=== PATIENT | female | born 1945 | race Caucasian/White ===

== ENCOUNTER 2017-02-21 04:47 | Inpatient (IN) | payer MEDICARE, OTHER ==
[2017-02-21] VITALS (12 sets, daily range): BP systolic 144–185; BP diastolic 59–85; PULSE 52–82; RESP 15–20; TEMP 96.4–98.2; O2SAT 94–99
[~2017-02-21] VITALS: Ht 165.1 cm; Wt 71.3 kg
--- NOTE | 2017-02-21 05:10 | PD ---
HPI Chief Complaint: Fall Time Seen by Provider: 04:51 Travel History International Travel<30 days: No Contact w/Intl Traveler<30days: No Traveled to known affect area: No History of Present Illness HPI 71-year-old female brought in by ambulance from her half-way for evaluation of right hip pain. The patient states that she tripped and fell while attempting to walk to the restroom, landing onto her right hip. She immediately experienced pain in her right hip. Pain is constant, moderate, worse with movements. She is unable to ambulate or bear weight because of the pain. She denies any other injuries. She denies head injury or LOC. No head neck or back pain. She is on aspirin and Plavix for history of CVAs. [facility] Past Medical History ?: Not Social History Tobacco Use: No Allergies-Medications (Allergen,Severity, Reaction): Coded Allergies: codeine (Verified Allergy, Unknown, 02/21/17) Reported Meds & Prescriptions Reported Meds & Active Scripts Active Reported Anoro Ellipta Inh (Umeclidinium/Vilanterol) 62.5-25 Mcg/Act Aero 1 Puff INH DAILY Pravastatin 40 Mg Tab 40 Mg PO DAILY Omeprazole 20 Mg Tab 20 Mg PO DAILY Metoprolol Tartrate 25 Mg Tab 25 Mg PO DAILY Lisinopril 40 Mg Tab 40 Mg PO DAILY Flovent Hfa 10.6 GM Inh (Fluticasone Propionate) 44 Mcg/Act Inh 2 Puff INH BID Use daily at the same time. Duloxetine DR (Duloxetine HCl) 20 Mg Capdr 20 Mg PO DAILY Clopidogrel (Clopidogrel Bisulfate) 75 Mg Tab 75 Mg PO DAILY Aspirin 81 Mg Chew 81 Mg CHEW DAILY Amlodipine (Amlodipine Besylate) 10 Mg Tab 10 Mg PO DAILY Fosamax (Alendronate Sodium) 70 Mg Tab 70 Mg PO Q7D Review of Systems Except as stated in HPI: all other systems reviewed are Neg Physical Exam Narrative GENERAL: Well-developed, well-nourished, awake, alert, GCS 15, no apparent distress. SKIN: Focused skin assessment warm/dry. No lacerations, abrasions, or ecchymosis. HEAD: Atraumatic. Normocephalic. EYES: Pupils equal and round. No scleral icterus. No injection or drainage. ENT: Mucous membranes pink and moist. NECK: Trachea midline. No JVD. No midline cervical spine step-off or tenderness. CARDIOVASCULAR: Regular rate and rhythm. Bilateral dorsalis pedis pulses are brisk and equal. RESPIRATORY: No accessory muscle use. Clear to auscultation. Breath sounds equal bilaterally. GASTROINTESTINAL: Abdomen soft, non-tender, nondistended. MUSCULOSKELETAL: Mild shortening and external rotation of the right lower extremity with tenderness at the right hip and limited range of motion in the right hip secondary to pain. There is pain with log rolling and axial loading at the right hip. No right knee deformity or tenderness. No right ankle or foot deformity or tenderness. The rest of her joints and extremities are without deformity, without tenderness, with normal range of motion. NEUROLOGICAL: Awake and alert. No obvious cranial nerve deficits. Motor grossly within normal limits. Normal speech. PSYCHIATRIC: Appropriate mood and affect; insight and judgment normal. Data Data Last Documented VS Vital Signs Date Time Temp Pulse Resp B/P (MAP) Pulse Ox O2 Delivery O2 Flow Rate FiO2 02/21/17 06:32 65 16 171/79 (109) 98 Room Air 02/21/17 04:58 98.1 Orders Orders Basic Metabolic Panel (Bmp) (02/21/17 05:04) Complete Blood Count With Diff (02/21/17 05:04) Prothrombin Time / Inr (Pt) (02/21/17 05:04) Act Partial Throm Time (Ptt) (02/21/17 05:04) Urinalysis - C+S If Indicated (02/21/17 05:04) Iv Access Insert/Monitor (02/21/17 05:04) Ecg Monitoring (02/21/17 05:04) Oximetry (02/21/17 05:04) Sodium Chloride 0.9% Flush (Ns Flush) (02/21/17 05:15) Hip, Uni(Ap&Lat) W Ap Pelvis (02/21/17 ) Ct Brain W/O Iv Contrast(Rout) (02/21/17 ) Ct Cerv Spine W/O Contrast (02/21/17 ) Morphine Inj (Morphine Inj) (02/21/17 05:15) Urine Culture (02/21/17 05:30) Morphine Inj (Morphine Inj) (02/21/17 06:45) Ct Pelvis W/O Iv Contrast (02/21/17 ) Labs Laboratory Tests Test 02/21/17 05:30 White Blood Count 4.9 TH/MM3 Red Blood Count 3.56 MIL/MM3 Hemoglobin 9.1 GM/DL Hematocrit 27.5 % Mean Corpuscular Volume 77.1 FL Mean Corpuscular Hemoglobin 25.5 PG Mean Corpuscular Hemoglobin Concent 33.0 % Red Cell Distribution Width 19.8 % Platelet Count 43 TH/MM3 Mean Platelet Volume 10.6 FL Neutrophils (%) (Auto) 36.7 % Lymphocytes (%) (Auto) 39.4 % Monocytes (%) (Auto) 23.3 % Eosinophils (%) (Auto) 0.3 % Basophils (%) (Auto) 0.3 % Neutrophils # (Auto) 1.8 TH/MM3 Lymphocytes # (Auto) 1.9 TH/MM3 Monocytes # (Auto) 1.1 TH/MM3 Eosinophils # (Auto) 0.0 TH/MM3 Basophils # (Auto) 0.0 TH/MM3 CBC Comment AUTO DIFF Differential Comment AUTO DIFF CONFIRMED Platelet Estimate LOW Platelet Morphology Comment ENLARGED Red Cell Morphology Comment NORMAL Prothrombin Time 11.7 SEC Prothromb Time International Ratio 1.1 RATIO Activated Partial Thromboplast Time 26.1 SEC Urine Color LIGHT-YELLOW Urine Turbidity HAZY Urine pH 6.5 Urine Specific [place] 1.004 Urine Protein NEG mg/dL Urine Glucose (UA) NEG mg/dL Urine Ketones NEG mg/dL Urine Occult Blood NEG Urine Nitrite POS Urine Bilirubin NEG Urine Urobilinogen LESS THAN 2.0 MG/DL Urine Leukocyte Esterase LARGE Urine RBC 4 /hpf Urine WBC 52 /hpf Urine Squamous Epithelial Cells <1 /hpf Urine Transitional Epithelial Cells <1 /hpf Urine Bacteria OCC /hpf Urine Hyaline Casts 1 /lpf Urine Mucus FEW /lpf Microscopic Urinalysis Comment CULTURE INDICATED Blood Urea Nitrogen 7 MG/DL Creatinine 0.66 MG/DL Random Glucose 96 MG/DL Calcium Level 8.9 MG/DL Sodium Level 137 MEQ/L Potassium Level 4.0 MEQ/L Chloride Level 104 MEQ/L Carbon Dioxide Level 24.4 MEQ/L Anion Gap 9 MEQ/L Estimat Glomerular Filtration Rate 89 ML/MIN [facility] Medical Decision Making Medical Screen Exam Complete: Yes Emergency Medical Condition: Yes Differential Diagnosis Mechanical fall, right hip fracture, contusion, intracranial trauma, cervical spine injury Narrative Course Initial vital signs show heart rate 82, blood pressure 146/72, pulse ox 98% on room air, oral temp of 98.1F. CBC: WBC 4.9, hemoglobin 9.1, hematocrit 27.5, MCV 77.1, platelets 43. BMP is unremarkable. UA is suggestive of UTI. The patient was given a dose of Rocephin. CT head: Cerebral atrophy and extensive chronic ischemic small vessel vasculopathy. Remote bilateral infarct. No hemorrhage. CT cervical spine: Advanced multilevel degenerative changes. No fracture. Right hip and pelvis x-ray: Mild degenerative changes without fracture. The patient has never been here before and there are no prior labs for comparison. She is anemic and thrombocytopenic. Stool was checked and is heme- negative and brown. On reassessment the patient has developed a large hematoma over her right lateral thigh. She is complaining of continued pain in this area. CT pelvis will be ordered to rule out occult fracture. At approximately 7:00 AM at the end of my shift the patient was signed out to oncoming provider Dr. Link to follow up with CT pelvis and formulate a disposition. H[facility]Prompt Point of Care Internal Pos. & Neg. Controls: Passed Fecal Specimen Occult Blood: Negative Comment Heme-negative brown stool. Diagnosis Primary Impression: Fall Qualified Codes: W19.XXXA - Unspecified fall, initial encounter Additional Impressions: Hip injury Qualified Codes: S79.911A - Unspecified injury of right hip, initial encounter Anemia Qualified Codes: D64.9 - Anemia, unspecified Thrombocytopenia UTI (urinary tract infection) Qualified Codes: N39.0 - Urinary tract infection, site not specified; R31.9 - Hematuria, unspecified Noe Ramírez MD Feb 21, 2017 05:10
[2017-02-21] MEDS ORDERED: MORPHINE SULFATE 2 MG/ML INJ IV PUSH ONE ×2 (05:15→06:45)
[2017-02-21] MEDS ORDERED: SODIUM CHLORIDE 0.9% FLUSH 10 ML FLUSH IV FLUSH PRN ×2 (05:15→09:45)
[2017-02-21 05:37] LABS: AUTOMATED NEUTROPHIL # 1.8 TH/MM3 (1.8-7.7); BASOPHIL % 0.3 % (0.0-2.0); EOSINOPHIL % 0.3 % (0.0-4.0); HEMATOCRIT 27.5 % (35.0-46.0); LYMPH % 39.4 % (9.0-44.0); LYMPHOCYTE # 1.9 TH/MM3 (1.0-4.8); MEAN CELL VOLUME 77.1 FL (80.0-100.0); MEAN CORPUSCULAR HEMOGLOBIN 25.5 PG (27.0-34.0); MONO % 23.3 % (0.0-8.0); NEUT % 36.7 % (16.0-70.0); PLATELET COUNT 43 TH/MM3 (150-450); RED BLOOD COUNT 3.56 MIL/MM3 (4.00-5.30); RED CELL DISTRIBUTION WIDTH 19.8 % (11.6-17.2); WHITE BLOOD COUNT 4.9 TH/MM3 (4.0-11.0)
[2017-02-21 05:42] LABS: BACTERIA, URINE OCC /hpf; BLOOD, URINE NEG (NEG); GLUCOSE,URINE NEG (NEG); HYALINE CAST, URINE 1 /lpf (RARE); KETONE, URINE NEG (NEG); MUCUS URINE FEW /lpf (OCC); NITRITE,URINE POS (NEG); PH, URINE 6.5 (5.0-8.5); SQUAMOUS EPITHELIAL CELL URINE <1 /hpf (0-5); TRANSITIONAL EPI CELLS, URINE <1 /hpf; URINE COLOR LIGHT-YELLOW (YELLW/STRAW)
[2017-02-21 05:43] LABS: COMMENT (UR) CULTURE INDICATED; CULTURE IF INDICATED CULTURE INDICATED
[2017-02-21 05:50] LABS: APTT (PATIENT) 26.1 SEC (24.3-30.1); INTERNATIONAL NORMALIZED RATIO 1.1 RATIO; PROTHROMBIN TIME - PATIENT 11.7 SEC (9.8-11.6)
--- NOTE | 2017-02-21 05:57 | RADRPT ---
EXAM DATE/TIME: 02/21/2017 05:26 [facility] COMPARISON: No previous studies available for comparison. INDICATIONS : Trauma, fall. RADIATION DOSE: 56.35 CTDIvol (mGy) MEDICAL HISTORY : None SURGICAL HISTORY : None. ENCOUNTER: Initial ACUITY: 1 day PAIN SCALE: 1/10 LOCATION: cranial TECHNIQUE: Multiple contiguous axial images were obtained of the head. Using automated exposure control and adj ustment of the mA and/or kV according to patient size, radiation dose was kept as low as reasonably a chievable to obtain optimal diagnostic quality images. DICOM format image data is available electro nically for review and comparison. FINDINGS: CEREBRUM: Prominent areas of low attenuation throughout the white matter and brainstem. Old bilateral lacunar i nfarcts. The ventricles are prominent consistent with atrophy. No evidence of midline shift, mass le sen, hemorrhage or acute infarction. No extra-axial fluid collections are seen. POSTERIOR FOSSA: The cerebellum and brainstem are intact. The 4th ventricle is midline. The cerebellopontine angle i s unremarkable. EXTRACRANIAL: The visualized portion of the orbits is intact. SKULL: The calvaria is intact. No evidence of skull fracture. Area of sclerosis along the outer table of le ft parietal calvarium likely osteoma. CONCLUSION: 1. Cerebral atrophy and extensive chronic ischemic small vessel vasculopathy. 2. Remote bilateral infarct. 3. No hemorrhage. Edenilson Garza MD on February 21, 2017 at 5:54 Board Certified Radiologist. This report was verified electronically.
--- NOTE | 2017-02-21 06:01 | RADRPT ---
EXAM DATE/TIME: 02/21/2017 05:39 [facility] COMPARISON: No previous studies available for comparison. INDICATIONS : Fall this morning onto right hip. MEDICAL HISTORY : None. SURGICAL HISTORY : None. ENCOUNTER: Initial ACUITY: 1 day PAIN SCORE: 6/10 LOCATION: Right hip FINDINGS: Examination of the right hip was performed with AP Pelvis. The primary and secondary trabecular tanya roshni of the femoral neck is intact. The hip joint is of normal width without significant sclerosis or bony hypertrophy. The acetabulum is grossly intact. Stent in the right iliac vasculature. CONCLUSION: Mild degenerative changes without fracture. Edenilson Garza MD on February 21, 2017 at 5:59 Board Certified Radiologist. This report was verified electronically.
--- NOTE | 2017-02-21 06:01 | RADRPT ---
EXAM DATE/TIME: 02/21/2017 05:27 [facility] COMPARISON: No previous studies available for comparison. INDICATIONS : Trauma, fall. RADIATION DOSE: 34.49 CTDIvol (mGy) MEDICAL HISTORY : None SURGICAL HISTORY : None. ENCOUNTER: Initial ACUITY: 1 day PAIN SCALE: 0/10 LOCATION: neck TECHNIQUE: Volumetric scanning of the cervical spine was performed. Multiplanar reconstructions in the sagittal, coronal and oblique axial planes were performed. Using automated exposure control and adjustment o f the mA and/or kV according to patient size, radiation dose was kept as low as reasonably achievable to obtain optimal diagnostic quality images. DICOM format image data is available electronically f or review and comparison. FINDINGS: VERTEBRAE: Normal vertebral body height. ALIGNMENT: No evidence of subluxation. C2-C3: Broad-based posterior disc osteophyte complex. The neural foramina are bilaterally patent. C3-C4: Broad-based posterior disc osteophyte complex and moderate bilateral neural foraminal narrowing. C4-C5: Broad-based posterior disc osteophyte complex and moderate bilateral neural foraminal narrowing. No s ignificant canal stenosis. C5-C6: Broad-based posterior disc osteophyte complex and moderate bilateral neural foraminal narrowing. Mild canal stenosis. C6-C7: Broad-based posterior disc osteophyte complex and moderate bilateral neural foraminal narrowing. Mild canal stenosis. C7-T1: The bony spinal canal is normal in size. No evidence of disc bulge or herniation. The neural forami na are bilaterally patent. CONCLUSION: 1. Advanced multilevel degenerative changes. 2. No fracture. Edenilson Garza MD on February 21, 2017 at 5:56 Board Certified Radiologist. This report was verified electronically.
[2017-02-21] MEDS ORDERED: ASPI81CH CHEW (06:02)
[2017-02-21] MEDS ORDERED: METO25TA3 PO (06:02)
[2017-02-21] MEDS ORDERED: FOSA70TA PO (06:02)
[2017-02-21] MEDS ORDERED: FLUTI44I INH (06:02)
[2017-02-21] MEDS ORDERED: UMEC1AER INH (06:02)
[2017-02-21] MEDS ORDERED: AMLO10TA2 PO (06:02)
[2017-02-21] MEDS ORDERED: OMEP20TA PO (06:02)
[2017-02-21] MEDS ORDERED: LISI40TA PO (06:02)
[2017-02-21] MEDS ORDERED: DULO1CAP PO (06:02)
[2017-02-21] MEDS ORDERED: CLOP75TA PO (06:02)
[2017-02-21] MEDS ORDERED: PRAV40TA2 PO (06:02)
[2017-02-21 06:16] LABS: BICARBONATE 24.4 MEQ/L (21.0-32.0)
[2017-02-21 06:18] LABS: HEMO FLAGS AUTO DIFF
[2017-02-21 06:20] LABS: PLATELET ESTIMATE SMEAR LOW (NORMAL); PLATELET MORPHOLOGY ENLARGED (NORMAL); SCAN/DIFF AUTO DIFF CONFIRMED
--- NOTE | 2017-02-21 07:08 | PD ---
Physical Exam Date Seen by Provider: Feb 21, 2017 Time Seen by Provider: 07:07 Narrative The patient is a 71-year-old female who is initially lightly by the previous physician, Dr. Ramírez. Please refer to the initial history, physical, diagnostic evaluation, and treatment modality plan. The patient was signed out at [address] of the head pending after mechanical fall with inability to ambulate. The patient does currently [facility] in a [facility]. Data Data Last Documented VS Vital Signs Date Time Temp Pulse Resp B/P (MAP) Pulse Ox O2 Delivery O2 Flow Rate FiO2 02/21/17 06:32 65 16 171/79 (109) 98 Room Air 02/21/17 04:58 98.1 Orders Orders Basic Metabolic Panel (Bmp) (02/21/17 05:04) Complete Blood Count With Diff (02/21/17 05:04) Prothrombin Time / Inr (Pt) (02/21/17 05:04) Act Partial Throm Time (Ptt) (02/21/17 05:04) Urinalysis - C+S If Indicated (02/21/17 05:04) Iv Access Insert/Monitor (02/21/17 05:04) Ecg Monitoring (02/21/17 05:04) Oximetry (02/21/17 05:04) Sodium Chloride 0.9% Flush (Ns Flush) (02/21/17 05:15) Hip, Uni(Ap&Lat) W Ap Pelvis (02/21/17 ) Ct Brain W/O Iv Contrast(Rout) (02/21/17 ) Ct Cerv Spine W/O Contrast (02/21/17 ) Morphine Inj (Morphine Inj) (02/21/17 05:15) Urine Culture (02/21/17 05:30) Morphine Inj (Morphine Inj) (02/21/17 06:45) Ct Pelvis W/O Iv Contrast (02/21/17 ) Labs Laboratory Tests Test 02/21/17 05:30 White Blood Count 4.9 TH/MM3 Red Blood Count 3.56 MIL/MM3 Hemoglobin 9.1 GM/DL Hematocrit 27.5 % Mean Corpuscular Volume 77.1 FL Mean Corpuscular Hemoglobin 25.5 PG Mean Corpuscular Hemoglobin Concent 33.0 % Red Cell Distribution Width 19.8 % Platelet Count 43 TH/MM3 Mean Platelet Volume 10.6 FL Neutrophils (%) (Auto) 36.7 % Lymphocytes (%) (Auto) 39.4 % Monocytes (%) (Auto) 23.3 % Eosinophils (%) (Auto) 0.3 % Basophils (%) (Auto) 0.3 % Neutrophils # (Auto) 1.8 TH/MM3 Lymphocytes # (Auto) 1.9 TH/MM3 Monocytes # (Auto) 1.1 TH/MM3 Eosinophils # (Auto) 0.0 TH/MM3 Basophils # (Auto) 0.0 TH/MM3 CBC Comment AUTO DIFF Differential Comment AUTO DIFF CONFIRMED Platelet Estimate LOW Platelet Morphology Comment ENLARGED Red Cell Morphology Comment NORMAL Prothrombin Time 11.7 SEC Prothromb Time International Ratio 1.1 RATIO Activated Partial Thromboplast Time 26.1 SEC Urine Color LIGHT-YELLOW Urine Turbidity HAZY Urine pH 6.5 Urine Specific [place] 1.004 Urine Protein NEG mg/dL Urine Glucose (UA) NEG mg/dL Urine Ketones NEG mg/dL Urine Occult Blood NEG Urine Nitrite POS Urine Bilirubin NEG Urine Urobilinogen LESS THAN 2.0 MG/DL Urine Leukocyte Esterase LARGE Urine RBC 4 /hpf Urine WBC 52 /hpf Urine Squamous Epithelial Cells <1 /hpf Urine Transitional Epithelial Cells <1 /hpf Urine Bacteria OCC /hpf Urine Hyaline Casts 1 /lpf Urine Mucus FEW /lpf Microscopic Urinalysis Comment CULTURE INDICATED Blood Urea Nitrogen 7 MG/DL Creatinine 0.66 MG/DL Random Glucose 96 MG/DL Calcium Level 8.9 MG/DL Sodium Level 137 MEQ/L Potassium Level 4.0 MEQ/L Chloride Level 104 MEQ/L Carbon Dioxide Level 24.4 MEQ/L Anion Gap 9 MEQ/L Estimat Glomerular Filtration Rate 89 ML/MIN [facility] Medical Record Reviewed: Yes Supervised Visit with GEN: No Interpretation(s) Last Impressions Pelvis CT 02/21/17 Signed Impressions: Service Date/Time: Tuesday, February 21, 2017 07:36 - CONCLUSION: 1. Moderate-sized lateral right thigh soft tissue hematoma with associated nondisplaced fracture involving the greater trochanter of the right femur. Andrea Oro MD Hip and Pelvis X-Ray 02/21/17 Signed Impressions: Service Date/Time: Tuesday, February 21, 2017 05:39 - CONCLUSION: Mild degenerative changes without fracture. Edenilson Garza MD Head CT 02/21/17 Signed Impressions: Service Date/Time: Tuesday, February 21, 2017 05:26 - CONCLUSION: 1. Cerebral atrophy and extensive chronic ischemic small vessel vasculopathy. 2. Remote bilateral infarct. 3. No hemorrhage. Edenilson Garza MD Cervical Spine CT 02/21/17 0000 Signed Impressions: Service Date/Time: Tuesday, February 21, 2017 05:27 - CONCLUSION: 1. Advanced multilevel degenerative changes. 2. No fracture. Edenilson Garza MD Laboratory Tests Test 02/21/17 05:30 White Blood Count 4.9 TH/MM3 Red Blood Count 3.56 MIL/MM3 Hemoglobin 9.1 GM/DL Hematocrit 27.5 % Mean Corpuscular Volume 77.1 FL Mean Corpuscular Hemoglobin 25.5 PG Mean Corpuscular Hemoglobin Concent 33.0 % Red Cell Distribution Width 19.8 % Platelet Count 43 TH/MM3 Mean Platelet Volume 10.6 FL Neutrophils (%) (Auto) 36.7 % Lymphocytes (%) (Auto) 39.4 % Monocytes (%) (Auto) 23.3 % Eosinophils (%) (Auto) 0.3 % Basophils (%) (Auto) 0.3 % Neutrophils # (Auto) 1.8 TH/MM3 Lymphocytes # (Auto) 1.9 TH/MM3 Monocytes # (Auto) 1.1 TH/MM3 Eosinophils # (Auto) 0.0 TH/MM3 Basophils # (Auto) 0.0 TH/MM3 CBC Comment AUTO DIFF Differential Comment AUTO DIFF CONFIRMED Platelet Estimate LOW Platelet Morphology Comment ENLARGED Red Cell Morphology Comment NORMAL Prothrombin Time 11.7 SEC Prothromb Time International Ratio 1.1 RATIO Activated Partial Thromboplast Time 26.1 SEC Urine Color LIGHT-YELLOW Urine Turbidity HAZY Urine pH 6.5 Urine Specific [place] 1.004 Urine Protein NEG mg/dL Urine Glucose (UA) NEG mg/dL Urine Ketones NEG mg/dL Urine Occult Blood NEG Urine Nitrite POS Urine Bilirubin NEG Urine Urobilinogen LESS THAN 2.0 MG/DL Urine Leukocyte Esterase LARGE Urine RBC 4 /hpf Urine WBC 52 /hpf Urine Squamous Epithelial Cells <1 /hpf Urine Transitional Epithelial Cells <1 /hpf Urine Bacteria OCC /hpf Urine Hyaline Casts 1 /lpf Urine Mucus FEW /lpf Microscopic Urinalysis Comment CULTURE INDICATED Blood Urea Nitrogen 7 MG/DL Creatinine 0.66 MG/DL Random Glucose 96 MG/DL Calcium Level 8.9 MG/DL Sodium Level 137 MEQ/L Potassium Level 4.0 MEQ/L Chloride Level 104 MEQ/L Carbon Dioxide Level 24.4 MEQ/L Anion Gap 9 MEQ/L Estimat Glomerular Filtration Rate 89 ML/MIN Differential Diagnosis Differential diagnosis includes fracture, sprain, strain, dislocation, contusion , hematoma. Narrative Course The patient was initially evaluated by the previous physician, Dr. Ramírez. Please refer to the initial history, physical, diagnostic evaluation, and treatment modality plan. The patient was signed out at [address] of the head pending after mechanical fall with right hip pain and hematoma with inability to ambulate. The patient was noted to have a UTI, this was treated by the previous physician, Dr. Ramírez. CT of the right hip reveals an right greater trochanter fracture and hematoma. This may be a nonsurgical fracture, however, patient is unable to and bleed. Therefore, the patient will be admitted and will require orthopedic consultation. The patient will need physical therapy and occupational therapy evaluation as well. The patient's primary physician at the prison is Dr. Hurtado, therefore, [facility] were paged for admission. Physician Communication Physician Communication [facility] were paged for admission. Diagnosis Primary Impression: Fall Qualified Codes: W19.XXXA - Unspecified fall, initial encounter Additional Impressions: Anemia Qualified Codes: D64.9 - Anemia, unspecified Thrombocytopenia Hip injury Qualified Codes: S79.911A - Unspecified injury of right hip, initial encounter UTI (urinary tract infection) Qualified Codes: N39.0 - Urinary tract infection, site not specified; R31.9 - Hematuria, unspecified Fracture of greater trochanter of right femur Qualified Codes: S72.114A - Nondisplaced fracture of greater trochanter of right femur, initial encounter for closed fracture Admitting Information Admitting Physician Requests: Admit Condition: Stable Edgardo Link MD Feb 21, 2017 07:08
--- NOTE | 2017-02-21 08:04 | RADRPT ---
EXAM DATE/TIME: 02/21/2017 07:36 [facility] COMPARISON: HIP RIGHT (AP&LAT 2/3VWS) W AP PELVIS, February 21, 2017, 5:39. INDICATIONS : Right hip pain and thigh hematoma. ORAL CONTRAST: No oral contrast ingested. RADIATION DOSE: 20.33 CTDIvol (mGy) MEDICAL HISTORY : Chronic obstructive pulmonary disease. Cerebrovascular disease. Cardiovascular diseaseHypertension. SURGICAL HISTORY : None. ENCOUNTER: Initial ACUITY: 1 day PAIN SCALE: 0/10 LOCATION: Right pelvis TECHNIQUE: Volumetric scanning of the pelvis was performed. Using automated exposure control and adjustment of the mA and/or kV according to patient size, radiation dose was kept as low as reasonably achievable t o obtain optimal diagnostic quality images. DICOM format image data is available electronically for review and comparison. FINDINGS: BOWEL/MESENTERY: The visualized small and large bowel demonstrate no acute abnormality. There is no free fluid. BLADDER: There is no wall thickening or mass. RETROPERITONEUM: There is no aneurysm or lymphadenopathy. Extensive atherosclerotic calcifications of the distal aorta and bilateral iliac arteries with the right iliac artery stent in place. REPRODUCTIVE: Within normal limits. INGUINAL: There is no lymphadenopathy or hernia. MUSCULOSKELETAL: Moderate-sized lateral right soft tissue hematoma. There is a nondisplaced fracture involving the gre ater trochanter of the right femur. Remaining osseous structures appear intact. CONCLUSION: 1. Moderate-sized lateral right thigh soft tissue hematoma with associated nondisplaced fracture invo lving the greater trochanter of the right femur. Andrea Oro MD on February 21, 2017 at 7:56 Board Certified Radiologist. This report was verified electronically.
[2017-02-21] MEDS ORDERED: ONDANSETRON HCL 4 MG/2 ML VIAL IV PUSH ONE (08:30)
[2017-02-21] MEDS ORDERED: MORPHINE SULFATE 4 MG/ML INJ IV PUSH ONE (08:30)
[2017-02-21] MEDS ORDERED: SODIUM CHLOR 0.9% 1000 ML INJ 1,000 ML IV SCH (08:30)
[2017-02-21] MEDS ORDERED: ACETAMINOPHEN/HYDROcodone 325 MG/5 MG TAB PO PRN (09:45)
[2017-02-21] MEDS ORDERED: BISACODYL 10 MG SUPP RECTAL PRN (09:45)
[2017-02-21] MEDS ORDERED: ACETAMINOPHEN/HYDROcodone 325 MG/7.5 MG TAB PO PRN (09:45)
[2017-02-21] MEDS ORDERED: ACETAMINOPHEN 325 MG TAB PO PRN (09:45)
[2017-02-21] MEDS ORDERED: NALOXONE HCL 0.4 MG/ML AMP IV PUSH PRN (09:45)
[2017-02-21] MEDS ORDERED: ONDANSETRON HCL 4 MG/2 ML VIAL IVP PRN (09:45)
[2017-02-21] MEDS ORDERED: ENALAPRILAT 1.25 MG/ML VIAL IV PUSH PRN (10:15)
--- NOTE | 2017-02-21 10:26 | HHI.HP ---
[facility] Service [facility] Primary Care Physician Nas Hurtado MD Admission Diagnosis right greater trochanter fracture, hematoma Diagnoses: (1) Fracture of greater trochanter of right femur (2) Thrombocytopenia (3) Fall (4) UTI (urinary tract infection) (5) Anemia Chief Complaint: Post fall Travel History International Travel<30 Days: No Contact w/Intl Traveler <30 Da: No Traveled to Known Affected Are: No History of Present Illness Written by Lakeshia Suresh, acting as scribe for Dr. Cedillo on 02/21/17 at 10:24. Ms. Craft is a 71-year-old female patient with a known medical history of hypertension, cardiac stent placement and history of CVA who presented to the ED after slipping at home. Patient states she woke up needing to use the restroom, stepped out of bed and with her socks on she slipped on the wood floor landing on her right hip. Patient complaints of 9/10 pain, denies any radiation of pain, states that movement aggravates pain, rest relieves pain. Denies any loss of consciousness, denies any dizziness or lightheadedness, denies hitting her head. Denies any weakness in legs. Denies any numbness or tingling in extremities. Denies any recent illness including fever, chills, chest pain, headache, ab pain, n/v/d or dysuria. At this time patient is in severe pain, unable to even turn in bed without significant pain. Thrombocytopenia also noted on labs today. Patient unaware of previousH/O easy bruising or ecchymosis, not aware of having a low platelet count in the past Review of Systems Constitutional: DENIES: Fever, Chills Eyes: DENIES: Blurred vision Respiratory: DENIES: Cough, Sputum production, Shortness of breath Cardiovascular: DENIES: Chest pain, Syncope, Dyspnea on Exertion Gastrointestinal: DENIES: Abdominal pain, Constipation, Diarrhea, Nausea, Vomiting Psychiatric: DENIES: Anxiety Except as stated in HPI: all other systems reviewed are Neg Past Family Social History Past Medical History Hypertension Cardiac stent placement x 3 History of CVA in 2003 Past Surgical History Denies any prior surgery. Reported Medications Active Reported Anoro Ellipta Inh (Umeclidinium/Vilanterol) 62.5-25 Mcg/Act Aero 1 Puff INH DAILY Pravastatin 40 Mg Tab 40 Mg PO DAILY Omeprazole 20 Mg Tab 20 Mg PO DAILY Metoprolol Tartrate 25 Mg Tab 25 Mg PO DAILY Lisinopril 40 Mg Tab 40 Mg PO DAILY Flovent Hfa 10.6 GM Inh (Fluticasone Propionate) 44 Mcg/Act Inh 2 Puff INH BID Use daily at the same time. Duloxetine DR (Duloxetine HCl) 20 Mg Capdr 20 Mg PO DAILY Clopidogrel (Clopidogrel Bisulfate) 75 Mg Tab 75 Mg PO DAILY Aspirin 81 Mg Chew 81 Mg CHEW DAILY Amlodipine (Amlodipine Besylate) 10 Mg Tab 10 Mg PO DAILY Fosamax (Alendronate Sodium) 70 Mg Tab 70 Mg PO Q7D Allergies: Coded Allergies: codeine (Verified Allergy, Unknown, 02/21/17) Active Ordered Medications Current Medications Medications (Trade) Dose Ordered Sig/Maite Route Start Time Stop Time Status Last Admin (NS Flush) 2 ml UNSCH PRN IV FLUSH 02/21/17 05:15 02/21/17 08:40 Sodium Chloride 1,000 ml @ 48 mls/hr [id number] IV 02/21/17 11:00 (NS Flush) 2 ml BID IV FLUSH 02/21/17 21:00 (Tylenol) 650 mg Q4H PRN PO 02/21/17 09:45 (Zofran Inj) 4 mg Q6H PRN IVP 02/21/17 09:45 ([place] 5-325 Mg) 1 tab Q4H PRN PO 02/21/17 09:45 UNV ([place] 7.5-325 Mg) 1 tab Q4H PRN PO 02/21/17 09:45 UNV (Morphine Inj) 3 mg Q3H PRN IV PUSH 02/21/17 11:30 (Narcan Inj) 0.4 mg UNSCH PRN IV PUSH 02/21/17 09:45 (Felicity-Colace) 1 tab BID PO 02/21/17 21:00 (Milk Of Magnesia Liq) 30 ml Q12H PRN PO 02/21/17 09:45 (Senokot) 17.2 mg Q12H PRN PO 02/21/17 09:45 (Dulcolax Supp) 10 mg DAILY PRN RECTAL 02/21/17 09:45 (Lactulose Liq) 30 ml DAILY PRN PO 02/21/17 09:45 (Vasotec Inj) 1.25 mg Q6H PRN IV PUSH 02/21/17 10:15 Family History Admits to a significant family medical history of cardiovascular disease and stroke. Social History Does admit to smoking 1 ppd cigarettes for over 47 years. Denies any alcohol use. Denies any illicit drug use. Physical Exam Vital Signs Vital Signs Date Time Temp Pulse Resp B/P (MAP) Pulse Ox O2 Delivery O2 Flow Rate FiO2 02/21/17 08:45 15 02/21/17 08:40 54 15 168/72 (104) 97 Room Air 02/21/17 07:10 52 15 150/66 (94) 99 Room Air 02/21/17 06:32 65 16 171/79 (109) 98 Room Air 02/21/17 05:55 16 02/21/17 05:00 Room Air 02/21/17 04:58 98.1 82 16 146/72 (96) 98 Physical Exam GENERAL: This is a well-nourished, well-developed female patient, lying in bed with complaints of right hip pain. SKIN: No rashes, ecchymoses or lesions. Warm and dry. HEAD: Atraumatic. Normocephalic. Pupils equal round and reactive. Extraocular motions intact. No scleral icterus. No injection or drainage. Nose without bleeding. Airway patent. NECK: Trachea midline. No JVD or lymphadenopathy. Supple. CARDIOVASCULAR: Regular rate and rhythm without gallops, or rubs. 2/6 systolic murmur heard loudest at lower left sternal border. RESPIRATORY: Clear to auscultation. Breath sounds equal bilaterally. No wheezes , rales, or rhonchi. GASTROINTESTINAL: Abdomen soft, non-tender, nondistended. No guarding. MUSCULOSKELETAL: Extremities without clubbing, cyanosis, or edema. Right hip hematoma noted, roughly 10-15 cm in length. NEUROLOGICAL: Awake and alert. Cranial nerves II through XII intact. Motor and sensory grossly within normal limits. Five out of 5 muscle strength in all muscle groups. Normal speech. Laboratory Laboratory Tests Test 02/21/17 05:30 White Blood Count 4.9 Red Blood Count 3.56 Hemoglobin 9.1 Hematocrit 27.5 Mean Corpuscular Volume 77.1 Mean Corpuscular Hemoglobin 25.5 Mean Corpuscular Hemoglobin Concent 33.0 Red Cell Distribution Width 19.8 Platelet Count 43 Mean Platelet Volume 10.6 Neutrophils (%) (Auto) 36.7 Lymphocytes (%) (Auto) 39.4 Monocytes (%) (Auto) 23.3 Eosinophils (%) (Auto) 0.3 Basophils (%) (Auto) 0.3 Neutrophils # (Auto) 1.8 Lymphocytes # (Auto) 1.9 Monocytes # (Auto) 1.1 Eosinophils # (Auto) 0.0 Basophils # (Auto) 0.0 CBC Comment AUTO DIFF Differential Comment AUTO DIFF CONFIRMED Platelet Estimate LOW Platelet Morphology Comment ENLARGED Red Cell Morphology Comment NORMAL Prothrombin Time 11.7 Prothromb Time International Ratio 1.1 Activated Partial Thromboplast Time 26.1 Urine Color LIGHT-YELLOW Urine Turbidity HAZY Urine pH 6.5 Urine Specific [place] 1.004 Urine Protein NEG Urine Glucose (UA) NEG Urine Ketones NEG Urine Occult Blood NEG Urine Nitrite POS Urine Bilirubin NEG Urine Urobilinogen LESS THAN 2.0 Urine Leukocyte Esterase LARGE Urine RBC 4 Urine WBC 52 Urine Squamous Epithelial Cells <1 Urine Transitional Epithelial Cells <1 Urine Bacteria OCC Urine Hyaline Casts 1 Urine Mucus FEW Microscopic Urinalysis Comment CULTURE INDICATED Blood Urea Nitrogen 7 Creatinine 0.66 Random Glucose 96 Calcium Level 8.9 Sodium Level 137 Potassium Level 4.0 Chloride Level 104 Carbon Dioxide Level 24.4 Anion Gap 9 Estimat Glomerular Filtration Rate 89 Date/Time Source Procedure Growth Status 02/21/17 05:30 Urine Clean Catch Urine Culture Pending Worksheet Result Diagram: 02/21/1730 02/21/1730 Imaging Last Impressions Pelvis CT 02/21/17 0000 Signed Impressions: Service Date/Time: Tuesday, February 21, 2017 07:36 - CONCLUSION: 1. Moderate-sized lateral right thigh soft tissue hematoma with associated nondisplaced fracture involving the greater trochanter of the right femur. Andrea Oro MD Hip and Pelvis X-Ray 02/21/17 0000 Signed Impressions: Service Date/Time: Tuesday, February 21, 2017 05:39 - CONCLUSION: Mild degenerative changes without fracture. Edenilson Garza MD Head CT 02/21/17 0000 Signed Impressions: Service Date/Time: Tuesday, February 21, 2017 05:26 - CONCLUSION: 1. Cerebral atrophy and extensive chronic ischemic small vessel vasculopathy. 2. Remote bilateral infarct. 3. No hemorrhage. Edenilson Garza MD Cervical Spine CT 02/21/17 0000 Signed Impressions: Service Date/Time: Tuesday, February 21, 2017 05:27 - CONCLUSION: 1. Advanced multilevel degenerative changes. 2. No fracture. MD Joy Bass VTE Risk Assessment Caprinkiesha VTE Risk Assessment: Mod/High Risk (score >= 2) Caprini Risk Assessment Model Point Value = 1 Point Value = 2 Point Value = 3 Point Value = 5 Age 41-60 Minor surgery BMI > 25 kg/m2 Swollen legs Varicose veins or History of unexplained or recurrent spontaneous Oral contraceptives or hormone replacement Sepsis (< 1 month) Serious lung disease, including pneumonia (< 1 month) Abnormal pulmonary function Acute myocardial infarction Congestive heart failure (< 1 month) History of inflammatory bowel disease Medical patient at bed rest Age 61-74 Arthroscopic surgery Major open surgery (> 45 min) Laparoscopic surgery (> 45 min) Malignancy Confined to bed (> 72 hours) Immobilizing plaster cast Central venous access Age >= 75 History of VTE Family history of VTE Factor V Leiden Prothrombin [id number] Lupus anticoagulant Anticardiolipin antibodies Elevated serum homocysteine Heparin-induced thrombocytopenia Other congenital or acquired thrombophilia Stroke (< 1 month) Elective arthroplasty Hip, pelvis, or leg fracture Acute spinal cord injury (< 1 month) Prophylaxis Regimen Total Risk Factor Score Risk Level Prophylaxis Regimen 0-1 Low Early ambulation 2 Moderate Order ONE of the following: *Sequential Compression Device (SCD) *Heparin 5000 units SQ BID 3-4 Higher Order ONE of the following medications: *Heparin 5000 units SQ TID *Enoxaparin/Lovenox 40 mg SQ daily (WT < 150 kg, CrCl > 30 mL/min) *Enoxaparin/Lovenox 30 mg SQ daily (WT < 150 kg, CrCl > 10-29 mL/min) *Enoxaparin/Lovenox 30 mg SQ BID (WT < 150 kg, CrCl > 30 mL/min) AND/OR *Sequential Compression Device (SCD) 5 or more Highest Order ONE of the following medications: *Heparin 5000 units SQ TID (Preferred with Epidurals) *Enoxaparin/Lovenox 40 mg SQ daily (WT < 150 kg, CrCl > 30 mL/min) *Enoxaparin/Lovenox 30 mg SQ daily (WT < 150 kg, CrCl > 10-29 mL/min) *Enoxaparin/Lovenox 30 mg SQ BID (WT < 150 kg, CrCl > 30 mL/min) AND *Sequential Compression Device (SCD) Assessment and Plan Assessment and Plan Ms. Craft is a 71-year-old female patient with a known medical history of hypertension, cardiac stent placement and history of CVA who presented to the ED after slipping at home. Patient states she woke up needing to use the restroom, stepped out of bed and with her socks on she slipped on the wood floor hitting her right hip. Status post mechanical fall /Fracture of the greater trochanter of right femur - Hip and pelvis x-ray showing mild degenerative changes without fracture. Pelvis CT showing moderate-sized lateral right thigh soft tissue hematoma with associated nondisplaced fx involving the greater trochanter of the right femur. - Head CT reviewed showing cerebral atrophy and extensive chronic ischemic small vessel vasculopathy. Remote bilateral infarct. No hemorrhage. - Cervical spine CT reviewed showing advanced multilevel degenerative changes , no fracture. - Control pain, Morphine IV given in ED. [place] PO available PRN per pain scale. Morphine IV available PRN for breakthrough pain. - Monitor for constipation, felicity-Colace PO BID. - Ensure hydration, NS @ 48 ml/hr. Monitor for overload. - Orthopedic consulted for further recommendations and input. Not a surgical candidate. - RN to closely monitor hematoma and notify MD of any changes and enlargement. - Supportive care. Moderate-sized latera hematoma in the right thigh soft tissue Mostly worsened by Thrombocytopenia and the fall Continue holding aspirin and Plavix FFP 2 units Continue apply ice packing Hypertension, chronic: BP elevated on presentation possibly secondary to pain. Will continue home BP medications. Continue to monitor BP trends and control pain. Vasotec IV available PRN hypertension. Thrombocytopenia, ?chronic, giant platelet on smear Microcytic, hypochromic anemia - Hemiglobin 9.1/Hematocrit 27.5. - No lab records from previous visits. - Platelets 43K. Hematology consulted for further input and recommendations. - 2 units of FFP ordered. Will follow CBC. Monitor for bleeding. - Follow labs in am. Abnormal UA: Large amount of leukocyte esterase and high WBC. Urine culture pending. Will place on Rocephin IV, follow cultures. DVT prophylaxis: SCDs. Hold chemical prophylaxis for now due to hematoma. Continue to monitor. Discussed Condition With This note was transcribed by scribe [Lakeshia Suresh,.]. I, Dr. Eileen Cedillo personally performed the history, physical exam, and medical decision making; and confirmed the accuracy of the information in the transcribed note. Authenticated by Dr. Cedillo on 02/21/17 at 10:24 Physician Certification 2 Midnight Certification Type: Admission for Inpatient Services Order for Inpatient Services The services are ordered in accordance with Medicare regulations or non- Medicare payer requirements, as applicable. In the case of services not specified as inpatient-only, they are appropriately provided as inpatient services in accordance with the 2-midnight benchmark. Estimated LOS (days): 2 2 days is the estimated time the patient will need to remain in the hospital, assuming treatment plan goals are met and no additional complications. Post-Hospital Plan: Home Problem Qualifiers (1) Fracture of greater trochanter of right femur: Qualified Codes: S72.114A - Nondisplaced fracture of greater trochanter of right femur, initial encounter for closed fracture (2) Fall: Qualified Codes: W19.XXXA - Unspecified fall, initial encounter (3) UTI (urinary tract infection): Qualified Codes: N39.0 - Urinary tract infection, site not specified; R31.9 - Hematuria, unspecified (4) Anemia: Qualified Codes: D64.9 - Anemia, unspecified Lakeshia Suresh Feb 21, 2017 10:26 Eileen Cedillo MD Feb 21, 2017 10:26
[2017-02-21] MEDS ORDERED: MORPHINE SULFATE 4 MG/ML INJ IV PUSH PRN (11:30)
[2017-02-21] MEDS ORDERED: WALKER/ADULT/FO1 MIS (12:27)
[2017-02-21 13:21] LABS: HEMATOCRIT 24.9 % (35.0-46.0)
[2017-02-21 13:24] LABS: REVIEW FLAG FINAL
[2017-02-21 13:38] LABS: TRANSFERRIN 213 MG/DL (213-418); TRANSFERRIN IRON PROFILE 213 MG/DL (200-360)
[2017-02-21 13:41] LABS: FERRITIN 43 NG/ML (8-252)
--- NOTE | 2017-02-21 14:28 | MB ---
cc: EMILMARILYN DATE OF CONSULTATION 02/21/2017 CHIEF COMPLAINT Right hip pain status post fall. HISTORY OF PRESENT ILLNESS The patient is a 71-year-old white female who was brought to the emergency department after suffering a fall at home. She states she got up out of bed to go to the restroom when she lost her balance on her walker. She states that she then fell to the floor on her right hip. She says she had immediate right hip pain. She states that she was unable to bear weight and unable to get up. She denies any numbness, tingling or radiation of symptoms and denies any shortness of breath. She denies any syncopal episodes. She states that she is on Plavix. REVIEW OF SYSTEMS Negative except for what is mentioned in the HPI. FAMILY HISTORY Family history is noncontributory. SOCIAL HISTORY Denies any illicit drug use, alcohol or tobacco use. PAST MEDICAL HISTORY Noncontributory. MEDICATIONS For a complete list of medications, please see the patient's MAR on the chart. PHYSICAL EXAMINATION VITALS: Pulse 52, respiratory rate 15, blood pressure 159/70, O2 saturation 97 on room air. GENERAL: A well-developed, well-nourished 71-year white female resting comfortably in no acute distress. HEAD: Normocephalic, atraumatic. EARS: Hearing intact bilaterally. EYES: Extraocular motions intact. Pupils equal and reactive to light. NEUROLOGIC: Cranial nerves II-XII are grossly intact. NECK: Supple. No evidence of lymphadenopathy. ABDOMEN: Soft, nontender. LUNGS: No use of accessory muscles of breathing. No audible wheezes at bedside. HEART: No grade 4 murmur present. MUSCULOSKELETAL: Right lower extremity with noticeable swelling and bruising of the right lateral hip. It is tender to touch and also the skin appears to be slightly tight. It is localized to an area approximately 6-6 inches. She has point tenderness over the greater trochanter. Minimal pain with movement of the knee and ankle. Full sensation distally. Left lower extremity has full motion of the hip, knee, ankle and toes and no painful sensation distally with full strength. Bilateral upper extremities with full motion of the shoulders, elbows, wrists and fingers and no painful sensation distally with full strength. IMAGING STUDIES CT scans of the pelvis from [facility] was reviewed which shows a nondisplaced right greater trochanter fracture. ASSESSMENT 1. Nondisplaced right greater trochanter fracture. 2. Hematoma of the right lateral thigh. PLAN At this point, with how well the fractures aligned, I would recommend nonoperative management. The patient may 50% weight-bear on the right leg and avoid any active abduction. As long as she follows by these limitations, this should do well for her. I do not anticipate any surgery in the future. She will work with therapy on her stay here. She has other medical issues that need to be attended to. However, once she is getting around safely with therapy, she is orthopedically cleared for discharge to a rehab facility. The patient previously and currently lives in a fci so she would be discharged home back there. She does not need any anticoagulation. She will follow up with Dr. Emerson or his PA in 2 weeks in the office. Dictated by: Solomon Chambers PA-C I also saw and examined this patient. I also reviewed History, past medical history, social history, review of systems, physical exam, radiographs, assessment, and plan. Plan on nonoperative treatment. A mid-level provider in my office (nurse practitioner or physician mobile unit assistant) may see this patient on follow-up visits and continue to implement the objectives of this plan including : Starting or adjusting medications, injections, cast application, orthotics, brace application, physical therapy, radiological studies (including x-ray, MRI , CT, ultrasound, bone scan), vascular studies, neurologic studies, specialist consultation, and proceeding with surgical management, as appropriate. MD BONNIE Fofana/HAILEY /12:29 PM /2:26 PM NATASHA
[2017-02-21] MEDS: cefTRIAXone INJ 1,000 MG in SODIUM CHLORIDE 0.9% INJ 100 ML IV SCH (15:00)
[2017-02-21 17:31] LABS: HEMATOCRIT 28.5 % (35.0-46.0)
[2017-02-21 17:39] LABS: REVIEW FLAG FINAL
[2017-02-21] MEDS ORDERED: IRON SUCROSE INJ 200 MG in SODIUM CHLORIDE 0.9% INJ 100 ML IV ONE (20:00)
[2017-02-21] MEDS: SODIUM CHLORIDE 0.9% FLUSH 10 ML FLUSH IV FLUSH SCH (20:17)
[2017-02-21] MEDS: DOCUSATE SODIUM 50 MG/SENNA 8.6 MG TAB PO SCH (20:17)
[2017-02-21] MEDS: MORPHINE SULFATE 4 MG/ML INJ IV PUSH PRN (20:40)
[2017-02-21 23:47] LABS: REVIEW FLAG FINAL
[2017-02-22] VITALS (9 sets, daily range): BP systolic 142–191; BP diastolic 60–75; PULSE 59–75; RESP 14–20; TEMP 97.2–99.6; O2SAT 92–97
[2017-02-22] MEDS: MORPHINE SULFATE 4 MG/ML INJ IV PUSH PRN ×3 (00:37→20:10)
[2017-02-22 05:53] LABS: AUTOMATED NEUTROPHIL # 3.8 TH/MM3 (1.8-7.7); BASOPHIL % 0.1 % (0.0-2.0); EOSINOPHIL % 0.1 % (0.0-4.0); HEMATOCRIT 25.2 % (35.0-46.0); LYMPH % 18.6 % (9.0-44.0); LYMPHOCYTE # 1.6 TH/MM3 (1.0-4.8); MEAN CELL VOLUME 76.9 FL (80.0-100.0); MEAN CORPUSCULAR HEMOGLOBIN 25.9 PG (27.0-34.0); MEAN CORPUSCULAR HGB CONC 33.7 % (32.0-36.0); MONO % 36.2 % (0.0-8.0); PLATELET COUNT 39 TH/MM3 (150-450); RED BLOOD COUNT 3.28 MIL/MM3 (4.00-5.30); RED CELL DISTRIBUTION WIDTH 19.3 % (11.6-17.2); WHITE BLOOD COUNT 8.3 TH/MM3 (4.0-11.0)
[2017-02-22 05:58] LABS: HEMO FLAGS AUTO DIFF
[2017-02-22 06:09] LABS: BICARBONATE 23.6 MEQ/L (21.0-32.0); POTASSIUM 3.3 MEQ/L (3.5-5.1)
--- NOTE | 2017-02-22 06:56 | PD.ORT.PN ---
Subjective Subjective Remarks s/p fall at rehab facility reports right hip pain. otherwise comfortable Objective Vitals Vital Signs Date Time Temp Pulse Resp B/P (MAP) Pulse Ox O2 Delivery O2 Flow Rate FiO2 02/22/17 04:00 98.0 71 14 164/75 (104) 92 02/22/17 00:40 99.6 02/22/17 00:40 68 16 171/66 97 02/22/17 00:30 99.6 68 16 171/66 (101) 96 02/22/17 00:25 98.3 72 16 191/65 92 02/21/17 22:10 98.2 76 20 144/85 96 02/21/17 21:55 97.7 70 16 168/59 94 02/21/17 21:00 67 02/21/17 20:00 97.7 70 16 168/59 (95) 94 02/21/17 15:25 96.8 53 18 171/72 (105) 95 02/21/17 12:18 96.4 52 18 185/74 (111) 98 02/21/17 10:56 52 15 159/70 (99) 97 02/21/17 08:45 15 02/21/17 08:40 54 15 168/72 (104) 97 Room Air 02/21/17 07:10 52 15 150/66 (94) 99 Room Air I/O 02/21/17 02/21/17 02/21/17 02/22/17 02/22/17 02/22/17 07:00 15:00 23:00 07:00 15:00 23:00 Intake Total 720 ml 700 ml 1101 ml Balance 720 ml 700 ml 1101 ml Intake Oral 720 ml 480 ml 480 ml IV Total 210 ml FFP 591 ml Blood Product IV Normal Saline Flush 10 ml 30 ml # Voids 2 5 4 # Bowel Movements 0 0 0 Result Diagram: 02/22/1716 02/22/1716 Objective Remarks RLE: pain over lateral hip. pain with motion. nvi Assessment & Plan Assessment and Plan 1) Right Greater Trochanter Fx - nonop -50%WB -no active abduction -ortho cleared for DC back to SNF -f/u with Ki or SAL in 2 weeks Solomon Chambers Feb 22, 2017 06:56
[2017-02-22] MEDS ORDERED: HYDR-3580 PO (06:58)
[2017-02-22] MEDS ORDERED: ACETAMINOPHEN/HYDROcodone 325 MG/5 MG TAB PO PRN (07:00)
[2017-02-22] MEDS ORDERED: HYDR-3288 PO (07:00)
--- NOTE | 2017-02-22 07:12 | MB ---
cc: PAIGE CAMPOVERDE M.D. DATE OF CONSULTATION 02/21/2017 REASON FOR CONSULTATION Consult requested by hospitalist for evaluation of anemia and thrombocytopenia. HISTORY OF PRESENT ILLNESS Ghislaine is a 71-year-old female. She is a very poor historian. She was brought in from the shelter after she fell and was complaining of pain in the right hip and was unable to walk. In the emergency room, the patient underwent x-ray of the hip which showed mild degenerative changes without fracture. However, the CT of the pelvis showed moderate size lateral right thigh soft tissue hematoma with associated nondisplaced fracture involving the greater trochanter of the right femur. She had a CT of the head which shows cerebral atrophy and extensive chronic ischemic small vessel vascularity, remote bilateral infarct noted. No hemorrhage. The CT of the cervical spine showed advanced multilevel degenerative changes noted. No fracture. The CBC showed a white count of 4.9, hemoglobin 9.1, hematocrit 27.5, MCV is 77, platelet count is 43. I have been asked to see the patient for anemia and thrombocytopenia. The patient is a very poor historian. The patient states that she has a known history of thrombocytopenia for several years. She stated that she had a bone marrow biopsy in [place], but she does not recall where she had it done or who was the doctor. She used to live in [place], but now she is residing in a shelter in [facility]. Previous records are not available. The rest of the review of system is negative. PAST MEDICAL HISTORY 1. Hypertension 2. Hypercholesterolemia 3. Coronary artery disease 4. Osteoporosis PAST SURGICAL HISTORY The patient does not recall. ALLERGIES CODEINE MEDICATIONS 1. Anoro 2. Pravastatin 3. Omeprazole 4. Metoprolol 5. Lisinopril 6. Flovent 7. Duloxetine 8. Plavix 9. Aspirin 10. Amlodipine 11. Fosamax FAMILY HISTORY Unable to be obtained. SOCIAL HISTORY Unable to obtain. PHYSICAL EXAM This is a well-developed elderly white female in no apparent distress. VITAL SIGNS: Temperature 96.8, heart rate is 53, blood pressure 171/72. HEENT: PERRLA, EOMI, anicteric. No oral lesions noted. NECK: Supple. There is no cervical, supraclavicular or axillary lymphadenopathy noted. LUNGS: Clear. No wheezing, rhonchi or rales. HEART: Regular rate and rhythm. ABDOMEN: Soft and nontender. No hepatosplenomegaly. EXTREMITIES: Large swelling noted in the right hip area. It is cold due to the ice. NEUROLOGIC: Awake, alert and oriented x2. SKIN: No significant lesions noted. ASSESSMENT 1. Microcytic hypochromic anemia due to iron deficiency. 2. Chronic thrombocytopenia most likely secondary to some underlying bone marrow pathology. The patient stated she had a bone marrow biopsy a few years ago in [place], but she does not recall what she was told for the cause of the thrombocytopenia. 3. Nondisplaced right femur fracture. 4. Hematoma due to thrombocytopenia and being on Plavix and aspirin. PLAN I have reviewed her available records and I have discussed with the patient regarding the anemia and thrombocytopenia. The patient had a fall and she had developed hematoma and nondisplaced right hip fracture. Orthopedics has been consulted who have recommended conservative management. The patient had iron studies which showed iron deficiency. We will give her a Venofer infusion. I will check the B12 and folate. I will ask upper caser to assist getting medical records from [place] where she had workup especially the bone marrow biopsy. The patient was on Plavix and aspirin certainly which increased the risk for bleeding given severe thrombocytopenia. At this time, these should be held until we know about the reason for her to take these medications, as well as to know the cause of this severe thrombocytopenia. Further recommendations based on the hospital stay. Thank you for asking my opinion. MD MIAH Welsh/CORRIE /6:17 PM /6:52 AM
[2017-02-22] MEDS: SODIUM CHLOR 0.9% 1000 ML INJ 1,000 ML IV SCH ×2 (07:39→20:09)
--- NOTE | 2017-02-22 08:54 | PD.ONC.PN ---
Subjective Subjective Remarks Afebrile overnight. Patient resting in bed eating breakfast. denies pain. Objective Data Date Time Temp Pulse Resp B/P (MAP) Pulse Ox O2 Delivery O2 Flow Rate FiO2 02/22/17 04:00 98.0 71 14 164/75 (104) 92 02/22/17 00:40 99.6 02/22/17 00:40 68 16 171/66 97 02/22/17 00:30 99.6 68 16 171/66 (101) 96 02/22/17 00:25 98.3 72 16 191/65 92 02/21/17 22:10 98.2 76 20 144/85 96 02/21/17 21:55 97.7 70 16 168/59 94 02/21/17 21:00 67 02/21/17 20:00 97.7 70 16 168/59 (95) 94 02/21/17 15:25 96.8 53 18 171/72 (105) 95 02/21/17 12:18 96.4 52 18 185/74 (111) 98 02/21/17 10:56 52 15 159/70 (99) 97 02/22/17 02/22/17 02/22/17 07:00 15:00 23:00 Intake Total 1101 ml Balance 1101 ml Result Diagram: 02/22/1716 02/22/17 0516 Laboratory Results Laboratory Tests Test 02/21/17 12:00 02/21/17 17:09 02/21/17 23:30 02/22/17 05:16 Hemoglobin 8.4 GM/DL 9.3 GM/DL 8.3 GM/DL 8.5 GM/DL Hematocrit 24.9 % 28.5 % 25.0 % 25.2 % Iron Level 27 MCG/DL Total Iron Binding Capacity 298 MCG/DL Percent Iron Saturation 9.1 % Transferrin 213 MG/DL Ferritin 43 NG/ML Vitamin B12 Level 465 PG/ML Folate 15.7 NG/ML White Blood Count 8.3 TH/MM3 Red Blood Count 3.28 MIL/MM3 Mean Corpuscular Volume 76.9 FL Mean Corpuscular Hemoglobin 25.9 PG Mean Corpuscular Hemoglobin Concent 33.7 % Red Cell Distribution Width 19.3 % Platelet Count 39 TH/MM3 Mean Platelet Volume 12.2 FL Neutrophils (%) (Auto) 45.0 % Lymphocytes (%) (Auto) 18.6 % Monocytes (%) (Auto) 36.2 % Eosinophils (%) (Auto) 0.1 % Basophils (%) (Auto) 0.1 % Neutrophils # (Auto) 3.8 TH/MM3 Lymphocytes # (Auto) 1.6 TH/MM3 Monocytes # (Auto) 3.0 TH/MM3 Eosinophils # (Auto) 0.0 TH/MM3 Basophils # (Auto) 0.0 TH/MM3 CBC Comment AUTO DIFF Blood Urea Nitrogen 7 MG/DL Creatinine 0.63 MG/DL Random Glucose 112 MG/DL Calcium Level 8.5 MG/DL Sodium Level 136 MEQ/L Potassium Level 3.3 MEQ/L Chloride Level 102 MEQ/L Carbon Dioxide Level 23.6 MEQ/L Anion Gap 10 MEQ/L Estimat Glomerular Filtration Rate 94 ML/MIN Culture Results Microbiology Date/Time Source Procedure Growth Status 02/21/17 05:30 Urine Clean Catch Urine Culture Pending Worksheet Administered Medications Medications (Trade) Dose Ordered Sig/Maite Route PRN Reason Start Time Stop Time Status Last Admin Dose Admin Sodium Chloride (NS Flush) 2 ml UNSCH PRN IV FLUSH FLUSH AFTER USING IV ACCESS 02/21/17 05:15 02/21/17 08:40 Ceftriaxone Sodium 1000 mg/ Sodium Chloride 100 ml @ 200 mls/hr Q24H IV 02/21/17 15:00 02/21/17 15:00 Morphine Sulfate (Morphine Inj) 2 mg Q3H PRN IV PUSH pain >5 02/21/17 20:30 02/22/17 00:37 Objective Remarks GENERAL: Pleasant elderly female sitting up in bed in [facility]. SKIN: Warm and dry. HEAD: Normocephalic. EYES: No injection or drainage. NECK: Supple, trachea midline. CARDIOVASCULAR: Regular rate and rhythm RESPIRATORY: Breath sounds equal bilaterally. No accessory muscle use. GASTROINTESTINAL: Abdomen soft, non-tender, nondistended. EXTREMITIES: No cyanosis. right hip swelling NEUROLOGICAL: No obvious focal deficit. Awake, alert, and oriented x3. Assessment/Plan Problem List: (1) Microcytic anemia ICD Codes: D50.9 - Iron deficiency anemia, unspecified Plan: 02/22: await records from [place]. check coags. monitor CBC --patient still unsure the name of the facility she obtained bone marrow biopsy at in [place]. She states "it was one [facility] the [facility] hospitals." she is sure it is not [facility]. I faxed a medical records request to [facility]. If we are unable to obtain records, we may need to obtain a repeat bone marrow biopsy. --s/p Venofer infusion --Microcytic hypochromic anemia due to iron deficiency. (2) Thrombocytopenia ICD Codes: D69.6 - Thrombocytopenia, unspecified Status: Acute Plan: --Chronic thrombocytopenia most likely secondary to some underlying bone marrow pathology. --patient stated she had a bone marrow biopsy a few years ago in [place], but she does not recall what she was told for the cause of the thrombocytopenia. (3) Fracture of greater trochanter of right femur ICD Codes: S72.111A - Displaced fracture of greater trochanter of right femur, initial encounter for closed fracture Status: Acute Plan: --management per ortho (4) Hematoma ICD Codes: T14.8XXA - Other injury of unspecified body region, initial encounter Plan: --Hematoma due to thrombocytopenia and being on Plavix and aspirin. Assessment 71/o female admitted with hip fracture s/p fall. Hematology consulted for evaluation of anemia and thrombocytopenia. h/o Hypertension. Hypercholesterolemia. Coronary artery disease. Osteoporosis Attending Statement No new complaints Hematoma is stable H/H is Stable Await records from [place] The exam, history, and the medical decision-making described in the above note were completed with the assistance of the mid-level provider. I reviewed and agree with the findings presented. I attest that I had a [id number] encounter with the patient on the same day, and personally performed and documented my assessment and findings in the medical record. Problem Qualifiers (1) Fracture of greater trochanter of right femur: Qualified Codes: S72.114A - Nondisplaced fracture of greater trochanter of right femur, initial encounter for closed fracture Brooke Heard Feb 22, 2017 08:54 Henrique Tse MD Feb 23, 2017 06:33
[2017-02-22] MEDS: SODIUM CHLORIDE 0.9% FLUSH 10 ML FLUSH IV FLUSH SCH ×2 (09:00→20:26)
[2017-02-22 09:17] LABS: BANDS 3 % (0-6); NEUTROPHIL # MANUAL DIFF 4.6 TH/MM3 (1.8-7.7); POLYS (SEG NEUTROPHILS) 52 % (16-70); WBC DIFF SAMPLE 100
[2017-02-22 09:21] LABS: PLATELET ESTIMATE SMEAR LOW (NORMAL); SPHEROCYTES OCC (NORMAL)
[2017-02-22 09:23] LABS: PLATELET MORPHOLOGY ENLARGED (NORMAL); SCAN/DIFF FINAL DIFF MANUAL
[2017-02-22] MEDS: DOCUSATE SODIUM 50 MG/SENNA 8.6 MG TAB PO SCH ×2 (09:27→20:25)
[2017-02-22] MEDS ORDERED: PNEUMOCOCCAL POLYVALENT INJ 25 MCG/0.5 ML SYR IM ONE (10:00)
[2017-02-22] MEDS ORDERED: INFLUENZA VIRUS VACCINE (QUADRIVALENT) 0.5 ML SYR IM ONE (10:00)
[2017-02-22] MEDS: FLUTICASONE PROPIONATE 44 MCG/ACT 10.6 GM INHALER INH SCH ×2 (11:30→20:26)
[2017-02-22] MEDS: DULoxetine HCl DR 20 MG CAP PO SCH (11:30)
[2017-02-22] MEDS ORDERED: POTASSIUM CHLORIDE 20 MEQ CONTROLLED RELEASE TAB PO ONE (11:45)
[2017-02-22] MEDS: ACETAMINOPHEN/HYDROcodone 325 MG/7.5 MG TAB PO PRN ×2 (13:27→17:38)
[2017-02-22 13:30] LABS: APTT (PATIENT) 29.6 SEC (24.3-30.1); INTERNATIONAL NORMALIZED RATIO 1.1 RATIO
--- NOTE | 2017-02-22 13:58 | HHI.PR ---
Subjective Remarks Patient resting in bed , still having pain all over, especially in her right hip Hematoma seems to be stabilizing Ortho recommended nonsurgical treatment Objective Vitals Vital Signs Date Time Temp Pulse Resp B/P (MAP) Pulse Ox O2 Delivery O2 Flow Rate FiO2 02/22/17 12:00 98.3 75 20 163/72 (102) 95 02/22/17 10:51 16 02/22/17 10:27 18 02/22/17 08:00 99.0 69 20 178/72 (107) 95 02/22/17 04:00 98.0 71 14 164/75 (104) 92 02/22/17 00:40 99.6 02/22/17 00:40 68 16 171/66 97 02/22/17 00:30 99.6 68 16 171/66 (101) 96 02/22/17 00:25 98.3 72 16 191/65 92 02/21/17 22:10 98.2 76 20 144/85 96 02/21/17 21:55 97.7 70 16 168/59 94 02/21/17 21:00 67 02/21/17 20:00 97.7 70 16 168/59 (95) 94 02/21/17 15:25 96.8 53 18 171/72 (105) 95 I/O 02/21/17 02/21/17 02/21/17 02/22/17 02/22/17 02/22/17 07:00 15:00 23:00 07:00 15:00 23:00 Intake Total 720 ml 700 ml 1101 ml Balance 720 ml 700 ml 1101 ml Intake Oral 720 ml 480 ml 480 ml IV Total 210 ml FFP 591 ml Blood Product IV Normal Saline Flush 10 ml 30 ml # Voids 2 5 4 4 # Bowel Movements 0 0 0 Result Diagram: 02/22/1751502/22/1716 Objective Remarks GENERAL: This is a well-nourished, well-developed female patient, lying in bed with complaints of right hip pain. SKIN: No rashes, ecchymoses or lesions. Warm and dry. HEAD: Atraumatic. Normocephalic. Pupils equal round and reactive. Extraocular motions intact. No scleral icterus. No injection or drainage. Nose without bleeding. Airway patent. NECK: Trachea midline. No JVD or lymphadenopathy. Supple. CARDIOVASCULAR: Regular rate and rhythm without gallops, or rubs. 2/6 systolic murmur heard loudest at lower left sternal border. RESPIRATORY: Clear to auscultation. Breath sounds equal bilaterally. No wheezes , rales, or rhonchi. GASTROINTESTINAL: Abdomen soft, non-tender, nondistended. No guarding. MUSCULOSKELETAL: Extremities without clubbing, cyanosis, or edema. Right hip hematoma stable NEUROLOGICAL: Awake and alert. Cranial nerves II through XII intact. Motor and sensory grossly within normal limits. Five out of 5 muscle strength in all muscle groups. Normal speech. A/P Problem List: (1) Fracture of greater trochanter of right femur ICD Code: S72.111A - Displaced fracture of greater trochanter of right femur, initial encounter for closed fracture Status: Acute (2) Thrombocytopenia ICD Code: D69.6 - Thrombocytopenia, unspecified Status: Acute (3) Fall ICD Code: W19.XXXA - Unspecified fall, initial encounter Status: Acute (4) UTI (urinary tract infection) ICD Code: N39.0 - Urinary tract infection, site not specified Status: Acute (5) Anemia ICD Code: D64.9 - Anemia, unspecified Status: Acute Assessment and Plan 02/22: Appreciate ortho recommendation, nonsurgical management, appreciate oncology input, continue holding aspirin Plavix, awaiting records from previous medical facility about the patient possible bone marrow biopsy done him I discussed with the patient and her friend who was at the bedside a/p: Ms. Craft is a 71-year-old female patient with a known medical history of hypertension, cardiac stent placement and history of CVA who presented to the ED after slipping at home. Patient states she woke up needing to use the restroom, stepped out of bed and with her socks on she slipped on the wood floor hitting her right hip. Status post mechanical fall /Fracture of the greater trochanter of right femur - Hip and pelvis x-ray showing mild degenerative changes without fracture. Pelvis CT showing moderate-sized lateral right thigh soft tissue hematoma with associated nondisplaced fx involving the greater trochanter of the right femur. - Head CT reviewed showing cerebral atrophy and extensive chronic ischemic small vessel vasculopathy. Remote bilateral infarct. No hemorrhage. - Cervical spine CT reviewed showing advanced multilevel degenerative changes , no fracture. - Control pain, Morphine IV given in ED. [place] PO available PRN per pain scale. Morphine IV available PRN for breakthrough pain. - Monitor for constipation, germania-Colace PO BID. - Ensure hydration, NS @ 48 ml/hr. Monitor for overload. - Orthopedic consulted for further recommendations and input. Not a surgical candidate. - RN to closely monitor hematoma and notify MD of any changes and enlargement. - Supportive care. Moderate-sized latera hematoma in the right thigh soft tissue Mostly worsened by Thrombocytopenia and the fall Continue holding aspirin and Plavix FFP 2 units Continue apply ice packing Hypertension, chronic: BP elevated on presentation possibly secondary to pain. Will continue home BP medications. Continue to monitor BP trends and control pain. Vasotec IV available PRN hypertension. Thrombocytopenia, ?chronic, giant platelet on smear Microcytic, hypochromic anemia - Hemiglobin 9.1/Hematocrit 27.5. - No lab records from previous visits. - Platelets 43K. Hematology consulted for further input and recommendations. - 2 units of FFP ordered. Will follow CBC. Monitor for bleeding. - Follow labs in am. Abnormal UA: Large amount of leukocyte esterase and high WBC. Urine culture pending. Will place on Rocephin IV, follow cultures. DVT prophylaxis: SCDs. Hold chemical prophylaxis for now due to hematoma. Continue to monitor. Problem Qualifiers (1) Fracture of greater trochanter of right femur: Qualified Codes: S72.114A - Nondisplaced fracture of greater trochanter of right femur, initial encounter for closed fracture (2) Fall: Qualified Codes: W19.XXXA - Unspecified fall, initial encounter (3) UTI (urinary tract infection): Qualified Codes: N39.0 - Urinary tract infection, site not specified; R31.9 - Hematuria, unspecified (4) Anemia: Qualified Codes: D64.9 - Anemia, unspecified Eileen Cedillo MD Feb 22, 2017 13:58
[2017-02-22] MEDS: METOPROLOL TARTRATE 25 MG TAB PO SCH (14:02)
[2017-02-22] MEDS: LISINOPRIL 20 MG TAB PO SCH (14:03)
[2017-02-22] MEDS: cefTRIAXone INJ 1,000 MG in SODIUM CHLORIDE 0.9% INJ 100 ML IV SCH (14:03)
[2017-02-22] MEDS: PRAVASTATIN SOD 40 MG TAB PO SCH (14:04)
[2017-02-23] VITALS (8 sets, daily range): BP systolic 139–184; BP diastolic 68–84; PULSE 62–86; RESP 16–18; TEMP 96.7–100.2; O2SAT 92–96
[2017-02-23] MEDS: MAGNESIUM HYDROXIDE SUSP 30 ML CUP PO PRN (04:31)
[2017-02-23] MEDS: ACETAMINOPHEN/HYDROcodone 325 MG/7.5 MG TAB PO PRN ×4 (04:31→20:13)
[2017-02-23 07:36] LABS: HEMATOCRIT 25.5 % (35.0-46.0); MEAN CELL VOLUME 76.7 FL (80.0-100.0); MEAN CORPUSCULAR HEMOGLOBIN 26.2 PG (27.0-34.0); MEAN CORPUSCULAR HGB CONC 34.1 % (32.0-36.0); PLATELET COUNT 43 TH/MM3 (150-450); RED BLOOD COUNT 3.32 MIL/MM3 (4.00-5.30); WHITE BLOOD COUNT 8.7 TH/MM3 (4.0-11.0)
[2017-02-23] MEDS: LISINOPRIL 20 MG TAB PO SCH (08:18)
[2017-02-23] MEDS: PRAVASTATIN SOD 40 MG TAB PO SCH (08:18)
[2017-02-23] MEDS: LACTULOSE SYRUP 20 GM/30 ML CUP PO PRN (08:19)
[2017-02-23] MEDS: METOPROLOL TARTRATE 25 MG TAB PO SCH (08:19)
[2017-02-23] MEDS: DULoxetine HCl DR 20 MG CAP PO SCH (08:19)
[2017-02-23] MEDS: SENNOSIDES 8.6 MG TAB PO PRN (08:19)
[2017-02-23] MEDS: DOCUSATE SODIUM 50 MG/SENNA 8.6 MG TAB PO SCH ×2 (08:19→20:19)
[2017-02-23] MEDS: PANTOPRAZOLE SOD 20 MG DELAYED RELEASE TAB PO SCH (08:19)
[2017-02-23] MEDS: SODIUM CHLORIDE 0.9% FLUSH 10 ML FLUSH IV FLUSH SCH ×2 (08:24→20:21)
[2017-02-23] MEDS: FLUTICASONE PROPIONATE 44 MCG/ACT 10.6 GM INHALER INH SCH ×2 (08:27→20:17)
[2017-02-23 08:51] LABS: HEMO FLAGS AUTO DIFF
[2017-02-23 08:54] LABS: BANDS 2 % (0-6); EOSINOPHILS 1 % (0-4); NEUTROPHIL # MANUAL DIFF 5.3 TH/MM3 (1.8-7.7); POLYS (SEG NEUTROPHILS) 59 % (16-70); WBC DIFF SAMPLE 100
[2017-02-23 08:56] LABS: PLATELET MORPHOLOGY ENLARGED (NORMAL); SPHEROCYTES OCC (NORMAL)
[2017-02-23 09:00] LABS: PLATELET ESTIMATE SMEAR LOW (NORMAL); SCAN/DIFF FINAL DIFF MANUAL
[2017-02-23] MEDS: MORPHINE SULFATE 4 MG/ML INJ IV PUSH PRN ×3 (11:50→23:06)
--- NOTE | 2017-02-23 13:47 | PD.ONC.PN ---
Subjective Subjective Remarks Low grade temp overnight of 100.2. Pt resting in bed eating lunch Reports she has just rec'd something for pain No bleeding Objective Data Date Time Temp Pulse Resp B/P (MAP) Pulse Ox O2 Delivery O2 Flow Rate FiO2 02/23/17 11:46 96.7 79 18 184/84 (117) 95 02/23/17 04:00 100.2 86 17 147/69 (95) 96 02/23/17 00:00 99.5 71 16 149/68 (95) 92 02/22/17 20:10 59 02/22/17 18:50 98.7 70 19 146/60 (88) 92 02/22/17 18:38 18 02/22/17 15:51 97.2 73 20 142/69 (93) 96 02/23/17 02/23/17 02/23/17 07:00 15:00 23:00 Intake Total 350 ml Balance 350 ml Result Diagram: 02/23/17 0545 02/22/17 0516 Laboratory Results Laboratory Tests Test 02/23/17 05:45 White Blood Count 8.7 TH/MM3 Red Blood Count 3.32 MIL/MM3 Hemoglobin 8.7 GM/DL Hematocrit 25.5 % Mean Corpuscular Volume 76.7 FL Mean Corpuscular Hemoglobin 26.2 PG Mean Corpuscular Hemoglobin Concent 34.1 % Red Cell Distribution Width 20.0 % Platelet Count 43 TH/MM3 Mean Platelet Volume 12.2 FL CBC Comment AUTO DIFF Differential Total Cells Counted 100 Neutrophils % (Manual) 59 % Band Neutrophils % 2 % Lymphocytes % 18 % Monocytes % 20 % Eosinophils % 1 % Neutrophils # (Manual) 5.3 TH/MM3 Differential Comment FINAL DIFF MANUAL Platelet Estimate LOW Platelet Morphology Comment ENLARGED Spherocytes OCC Culture Results Microbiology Date/Time Source Procedure Growth Status 02/21/17 05:30 Urine Clean Catch Urine Culture - Final Klebsiella Pneumoniae Complete Administered Medications Medications (Trade) Dose Ordered Sig/Maite Route PRN Reason Start Time Stop Time Status Last Admin Dose Admin Sodium Chloride (NS Flush) 2 ml UNSCH PRN IV FLUSH FLUSH AFTER USING IV ACCESS 02/21/17 05:15 02/21/17 08:40 Sodium Chloride (NS Flush) 2 ml BID IV FLUSH 02/21/17 21:00 02/23/17 08:24 Ondansetron HCl (Zofran Inj) 4 mg Q6H PRN IVP NAUSEA OR VOMITING 02/21/17 09:45 02/22/17 09:27 Senna/Docusate Sodium (Felicity-Colace) 1 tab BID PO 02/21/17 21:00 02/23/17 08:19 Magnesium Hydroxide (Milk Of Magnesia Liq) 30 ml Q12H PRN PO Mild constipation 02/21/17 09:45 02/23/17 04:31 Sennosides (Senokot) 17.2 mg Q12H PRN PO Moderate constipation 02/21/17 09:45 02/23/17 08:19 Lactulose (Lactulose Liq) 30 ml DAILY PRN PO SEVERE CONSITIPATION 02/21/17 09:45 02/23/17 08:19 Enalaprilat (Vasotec Inj) 1.25 mg Q6H PRN IV PUSH bp>160/90 02/21/17 10:15 02/23/17 11:59 Ceftriaxone Sodium 1000 mg/ Sodium Chloride 100 ml @ 200 mls/hr Q24H IV 02/21/17 15:00 02/22/17 14:03 Morphine Sulfate (Morphine Inj) 2 mg Q3H PRN IV PUSH pain >5 02/21/17 20:30 02/23/17 11:50 Acetaminophen/ Hydrocodone Bitart (Amasa 5-325 Mg) 1 tab Q4H PRN PO pain 3-6 02/22/17 07:00 02/22/17 09:27 Acetaminophen/ Hydrocodone Bitart (Amasa 7.5-325 Mg) 1 tab Q4H PRN PO pain 7-10 02/22/17 07:00 02/23/17 13:20 Amlodipine Besylate (Norvasc) 10 mg DAILY PO 02/22/17 11:30 02/23/17 08:19 Duloxetine HCl (Cymbalta Dr) 20 mg DAILY PO 02/22/17 11:30 02/23/17 08:19 Fluticasone Propionate (Flovent Hfa 44 Mcg Inh) 2 puff BID INH 02/22/17 11:30 02/23/17 08:27 Metoprolol Tartrate (Lopressor) 25 mg DAILY PO 02/22/17 11:30 02/23/17 08:19 Pravastatin Sodium (Pravachol) 40 mg DAILY PO 02/22/17 11:30 02/23/17 08:18 Lisinopril (Prinivil) 40 mg DAILY PO 02/22/17 11:30 02/23/17 08:18 Pantoprazole Sodium (Protonix) 20 mg DAILY PO 02/23/17 09:00 02/23/17 08:19 Objective Remarks GENERAL: Pleasant older female sitting up in bed eating lunch. SKIN: Warm and dry. HEAD: Normocephalic. EYES: No injection or drainage. NECK: Supple, trachea midline. CARDIOVASCULAR: Regular rate and rhythm RESPIRATORY: Clear anteriorly. Breathing unlabored. GASTROINTESTINAL: Abdomen soft, non-tender, nondistended. EXTREMITIES: No cyanosis. Right hip swelling. SCDs to bilateral lower extremities. NEUROLOGICAL: No obvious focal deficit. Awake, alert, and oriented x3. Assessment/Plan Problem List: (1) Microcytic anemia ICD Codes: D50.9 - Iron deficiency anemia, unspecified Plan: 02/23: Bone marrow biopsy results from [facility] were done June 2014 and showed a normal megakaryocyte count as well as a normocellular bone marrow. Continue to hold Plavix and aspirin. Monitor CBC. --s/p Venofer infusion --Microcytic hypochromic anemia due to iron deficiency. (2) Thrombocytopenia ICD Codes: D69.6 - Thrombocytopenia, unspecified Status: Acute Plan: -- BMB done at [facility] show a normocellular marrow with trilineage hematopoiesis, adequate number of megakaryocytes a few hypoablated. There are no increased blasts. Bone marrow was done in June 2014. (3) Fracture of greater trochanter of right femur ICD Codes: S72.111A - Displaced fracture of greater trochanter of right femur, initial encounter for closed fracture Status: Acute Plan: --management per ortho (4) Hematoma ICD Codes: T14.8XXA - Other injury of unspecified body region, initial encounter Plan: --Hematoma due to thrombocytopenia and being on Plavix and aspirin. Assessment 71/o female admitted with hip fracture s/p fall. Hematology consulted for evaluation of anemia and thrombocytopenia. h/o Hypertension. Hypercholesterolemia. Coronary artery disease. Osteoporosis Attending Statement The exam, history, and the medical decision-making described in the above note were completed with the assistance of the mid-level provider. I reviewed and agree with the findings presented. I attest that I had a lska-fo-mgaf encounter with the patient on the same day, and personally performed and documented my assessment and findings in the medical record. c/o right pain BM from 2015 reviewed. Recommend repeat BM bx. pt agrees consult IR for BM bx Problem Qualifiers (1) Fracture of greater trochanter of right femur: Qualified Codes: S72.114A - Nondisplaced fracture of greater trochanter of right femur, initial encounter for closed fracture Urvashi Torrez Feb 23, 2017 13:47 Henrique Tse MD Feb 23, 2017 17:35
[2017-02-23] MEDS: cefTRIAXone INJ 1,000 MG in SODIUM CHLORIDE 0.9% INJ 100 ML IV SCH (14:11)
--- NOTE | 2017-02-23 19:43 | HHI.PR ---
Subjective Remarks Patient reported being in pain, "I can't sleep " Objective Vitals Vital Signs Date Time Temp Pulse Resp B/P (MAP) Pulse Ox O2 Delivery O2 Flow Rate FiO2 02/23/17 16:15 98.0 70 18 139/69 (92) 92 02/23/17 15:31 62 02/23/17 11:46 96.7 79 18 184/84 (117) 95 02/23/17 08:00 97.9 68 18 146/68 (94) 96 02/23/17 04:00 100.2 86 17 147/69 (95) 96 02/23/17 00:00 99.5 71 16 149/68 (95) 92 02/22/17 20:10 59 I/O 02/22/17 02/22/17 02/22/17 02/23/17 02/23/17 02/23/17 07:00 15:00 23:00 07:00 15:00 23:00 Intake Total 1101 ml 480 ml 350 ml 600 ml Balance 1101 ml 480 ml 350 ml 600 ml Intake Oral 480 ml 480 ml 350 ml 600 ml FFP 591 ml Blood Product IV Normal Saline Flush 30 ml # Voids 4 6 6 3 3 # Bowel Movements 0 0 0 0 Result Diagram: 02/23/17 0545 02/22/17 0516 Objective Remarks GENERAL: This is a well-nourished, well-developed female patient, lying in bed with complaints of right hip pain. SKIN: No rashes, ecchymoses or lesions. Warm and dry. HEAD: Atraumatic. Normocephalic. Pupils equal round and reactive. Extraocular motions intact. No scleral icterus. No injection or drainage. Nose without bleeding. Airway patent. NECK: Trachea midline. No JVD or lymphadenopathy. Supple. CARDIOVASCULAR: Regular rate and rhythm without gallops, or rubs. 2/6 systolic murmur heard loudest at lower left sternal border. RESPIRATORY: Clear to auscultation. Breath sounds equal bilaterally. No wheezes , rales, or rhonchi. GASTROINTESTINAL: Abdomen soft, non-tender, nondistended. No guarding. MUSCULOSKELETAL: Extremities without clubbing, cyanosis, or edema. Right hip hematoma stable NEUROLOGICAL: Awake and alert. Cranial nerves II through XII intact. Motor and sensory grossly within normal limits. Five out of 5 muscle strength in all muscle groups. Normal speech. A/P Problem List: (1) Fracture of greater trochanter of right femur ICD Code: S72.111A - Displaced fracture of greater trochanter of right femur, initial encounter for closed fracture Status: Acute (2) Thrombocytopenia ICD Code: D69.6 - Thrombocytopenia, unspecified Status: Acute (3) Fall ICD Code: W19.XXXA - Unspecified fall, initial encounter Status: Acute (4) UTI (urinary tract infection) ICD Code: N39.0 - Urinary tract infection, site not specified Status: Acute (5) Anemia ICD Code: D64.9 - Anemia, unspecified Status: Acute Assessment and Plan 02/22: Appreciate ortho recommendation, nonsurgical management, appreciate oncology input, continue holding aspirin Plavix, awaiting records from previous medical facility about the patient possible bone marrow biopsy done him I discussed with the patient and her friend who was at the bedside 02/23: Bone marrow biopsy came back unremarkable, further recommendation per hematology, continue pain management, continue PT a/p: Ms. Craft is a 71-year-old female patient with a known medical history of hypertension, cardiac stent placement and history of CVA who presented to the ED after slipping at home. Patient states she woke up needing to use the restroom, stepped out of bed and with her socks on she slipped on the wood floor hitting her right hip. Status post mechanical fall /Fracture of the greater trochanter of right femur - Hip and pelvis x-ray showing mild degenerative changes without fracture. Pelvis CT showing moderate-sized lateral right thigh soft tissue hematoma with associated nondisplaced fx involving the greater trochanter of the right femur. - Head CT reviewed showing cerebral atrophy and extensive chronic ischemic small vessel vasculopathy. Remote bilateral infarct. No hemorrhage. - Cervical spine CT reviewed showing advanced multilevel degenerative changes , no fracture. - Control pain, Morphine IV given in ED. [place] PO available PRN per pain scale. Morphine IV available PRN for breakthrough pain. - Monitor for constipation, germania-Colace PO BID. - Ensure hydration, NS @ 48 ml/hr. Monitor for overload. - Orthopedic consulted for further recommendations and input. Not a surgical candidate. - RN to closely monitor hematoma and notify MD of any changes and enlargement. - Supportive care. Moderate-sized latera hematoma in the right thigh soft tissue Mostly worsened by Thrombocytopenia and the fall Continue holding aspirin and Plavix FFP 2 units Continue apply ice packing Hypertension, chronic: BP elevated on presentation possibly secondary to pain. Will continue home BP medications. Continue to monitor BP trends and control pain. Vasotec IV available PRN hypertension. Thrombocytopenia, ?chronic, giant platelet on smear Microcytic, hypochromic anemia - Hemiglobin 9.1/Hematocrit 27.5. - No lab records from previous visits. - Platelets 43K. Hematology consulted for further input and recommendations. - 2 units of FFP ordered. Will follow CBC. Monitor for bleeding. - Follow labs in am. Abnormal UA: Large amount of leukocyte esterase and high WBC. Urine culture pending. Will place on Rocephin IV, follow cultures. DVT prophylaxis: SCDs. Hold chemical prophylaxis for now due to hematoma. Continue to monitor. Problem Qualifiers (1) Fracture of greater trochanter of right femur: Qualified Codes: S72.114A - Nondisplaced fracture of greater trochanter of right femur, initial encounter for closed fracture (2) Fall: Qualified Codes: W19.XXXA - Unspecified fall, initial encounter (3) UTI (urinary tract infection): Qualified Codes: N39.0 - Urinary tract infection, site not specified; R31.9 - Hematuria, unspecified (4) Anemia: Qualified Codes: D64.9 - Anemia, unspecified Eileen Cedillo MD Feb 23, 2017 19:43
[2017-02-23] MEDS: SODIUM CHLOR 0.9% 1000 ML INJ 1,000 ML IV SCH (20:15)
[2017-02-23] MEDS: BISACODYL EC 5 MG TABEC PO SCH (20:19)
[2017-02-24 00:44] VITALS: BP 140/66; PULSE 66; RESP 18; TEMP 98.3; O2SAT 95
[2017-02-24 04:44] VITALS: BP 139/64; PULSE 76; RESP 20; TEMP 98.3; O2SAT 95
[2017-02-24] MEDS: ACETAMINOPHEN/HYDROcodone 325 MG/7.5 MG TAB PO PRN ×4 (07:16→20:52)
[2017-02-24 08:00] VITALS: BP 150/73; PULSE 65; RESP 18; TEMP 97.5; O2SAT 94
[2017-02-24] MEDS: PANTOPRAZOLE SOD 20 MG DELAYED RELEASE TAB PO SCH (08:14)
[2017-02-24] MEDS: SODIUM CHLORIDE 0.9% FLUSH 10 ML FLUSH IV FLUSH SCH ×2 (08:14→20:53)
[2017-02-24] MEDS: LISINOPRIL 20 MG TAB PO SCH (08:14)
[2017-02-24] MEDS: DOCUSATE SODIUM 50 MG/SENNA 8.6 MG TAB PO SCH ×2 (08:15→20:51)
[2017-02-24] MEDS: METOPROLOL TARTRATE 25 MG TAB PO SCH (08:15)
[2017-02-24] MEDS: PRAVASTATIN SOD 40 MG TAB PO SCH (08:15)
[2017-02-24] MEDS: DULoxetine HCl DR 20 MG CAP PO SCH (08:15)
[2017-02-24] MEDS: FLUTICASONE PROPIONATE 44 MCG/ACT 10.6 GM INHALER INH SCH ×2 (08:25→20:52)
[2017-02-24 08:35] VITALS: PULSE 59
[2017-02-24] MEDS: MORPHINE SULFATE 4 MG/ML INJ IV PUSH PRN (10:11)
[2017-02-24 12:00] VITALS: BP 116/57; PULSE 60; RESP 18; TEMP 98; O2SAT 96
--- NOTE | 2017-02-24 13:47 | PD.ONC.PN ---
Subjective Subjective Remarks No bleeding Pt reports she feels like she is having gas pains Uncomfortable as she has not had a BM in '5 days' Objective Data Date Time Temp Pulse Resp B/P (MAP) Pulse Ox O2 Delivery O2 Flow Rate FiO2 02/24/17 08:35 59 02/24/17 08:00 97.5 65 18 150/73 (98) 94 02/24/17 04:44 98.3 76 20 139/64 (89) 95 02/24/17 00:44 98.3 66 18 140/66 (90) 95 02/23/17 20:12 65 02/23/17 19:30 97.2 65 16 162/70 (100) 93 02/23/17 16:15 98.0 70 18 139/69 (92) 92 02/23/17 15:31 62 Result Diagram: 02/23/1745 02/22/17 0516 Administered Medications Medications (Trade) Dose Ordered Sig/Maite Route PRN Reason Start Time Stop Time Status Last Admin Dose Admin Sodium Chloride (NS Flush) 2 ml UNSCH PRN IV FLUSH FLUSH AFTER USING IV ACCESS 02/21/17 05:15 02/21/17 08:40 Sodium Chloride (NS Flush) 2 ml BID IV FLUSH 02/21/17 21:00 02/24/17 08:14 Ondansetron HCl (Zofran Inj) 4 mg Q6H PRN IVP NAUSEA OR VOMITING 02/21/17 09:45 02/22/17 09:27 Senna/Docusate Sodium (Felicity-Colace) 1 tab BID PO 02/21/17 21:00 02/24/17 08:15 Magnesium Hydroxide (Milk Of Magnesia Liq) 30 ml Q12H PRN PO Mild constipation 02/21/17 09:45 02/23/17 04:31 Sennosides (Senokot) 17.2 mg Q12H PRN PO Moderate constipation 02/21/17 09:45 02/23/17 08:19 Lactulose (Lactulose Liq) 30 ml DAILY PRN PO SEVERE CONSITIPATION 02/21/17 09:45 02/23/17 08:19 Enalaprilat (Vasotec Inj) 1.25 mg Q6H PRN IV PUSH bp>160/90 02/21/17 10:15 02/23/17 11:59 Ceftriaxone Sodium 1000 mg/ Sodium Chloride 100 ml @ 200 mls/hr Q24H IV 02/21/17 15:00 02/23/17 14:11 Morphine Sulfate (Morphine Inj) 2 mg Q3H PRN IV PUSH pain >5 02/21/17 20:30 02/24/17 10:11 Acetaminophen/ Hydrocodone Bitart ([place] 5-325 Mg) 1 tab Q4H PRN PO pain 3-6 02/22/17 07:00 02/22/17 09:27 Acetaminophen/ Hydrocodone Bitart ([place] 7.5-325 Mg) 1 tab Q4H PRN PO pain 7-10 02/22/17 07:00 02/24/17 12:39 Amlodipine Besylate (Norvasc) 10 mg DAILY PO 02/22/17 11:30 02/24/17 08:15 Duloxetine HCl (Cymbalta Dr) 20 mg DAILY PO 02/22/17 11:30 02/24/17 08:15 Fluticasone Propionate (Flovent Hfa 44 Mcg Inh) 2 puff BID INH 02/22/17 11:30 02/24/17 08:25 Metoprolol Tartrate (Lopressor) 25 mg DAILY PO 02/22/17 11:30 02/24/17 08:15 Pravastatin Sodium (Pravachol) 40 mg DAILY PO 02/22/17 11:30 02/24/17 08:15 Lisinopril (Prinivil) 40 mg DAILY PO 02/22/17 11:30 02/24/17 08:14 Pantoprazole Sodium (Protonix) 20 mg DAILY PO 02/23/17 09:00 02/24/17 08:14 Bisacodyl (Dulcolax Ec) 10 mg HS PO 02/23/17 21:00 02/23/17 20:19 Objective Remarks GENERAL: Older female, sitting up in bed with visitors present. She appears uncomfortable. SKIN: Warm and dry. HEAD: Normocephalic. EYES: No injection or drainage. NECK: Supple, trachea midline. CARDIOVASCULAR: Regular rate and rhythm RESPIRATORY: Clear anteriorly. Breathing unlabored. GASTROINTESTINAL: Abdomen soft, non-tender, nondistended. EXTREMITIES: No cyanosis. Right hip swelling. SCDs to bilateral lower extremities. NEUROLOGICAL: No obvious focal deficit. Awake, alert, and oriented x3. Assessment/Plan Problem List: (1) Microcytic anemia ICD Codes: D50.9 - Iron deficiency anemia, unspecified Plan: 02/24: BMB ordered with IR. Check CBC in am. Monitor for bleeding. --s/p Venofer infusion --Microcytic hypochromic anemia due to iron deficiency. (2) Thrombocytopenia ICD Codes: D69.6 - Thrombocytopenia, unspecified Status: Acute Plan: -- BMB done at [facility] show a normocellular marrow with trilineage hematopoiesis, adequate number of megakaryocytes a few hypoablated. There are no increased blasts. Bone marrow was done in June 2014. (3) Fracture of greater trochanter of right femur ICD Codes: S72.111A - Displaced fracture of greater trochanter of right femur, initial encounter for closed fracture Status: Acute Plan: --management per ortho (4) Hematoma ICD Codes: T14.8XXA - Other injury of unspecified body region, initial encounter Plan: --Hematoma due to thrombocytopenia and being on Plavix and aspirin. Assessment 71/o female admitted with hip fracture s/p fall. Hematology consulted for evaluation of anemia and thrombocytopenia. h/o Hypertension. Hypercholesterolemia. Coronary artery disease. Osteoporosis Attending Statement c/o pain right hip and constipation. await BM bx by IR will follow. Problem Qualifiers (1) Fracture of greater trochanter of right femur: Qualified Codes: S72.114A - Nondisplaced fracture of greater trochanter of right femur, initial encounter for closed fracture Urvashi Torrez Feb 24, 2017 13:47 Henrique Tse MD Feb 24, 2017 17:31
[2017-02-24] MEDS: cefTRIAXone INJ 1,000 MG in SODIUM CHLORIDE 0.9% INJ 100 ML IV SCH (14:22)
--- NOTE | 2017-02-24 18:11 | HHI.PR ---
Subjective Remarks awake , in bed , feeling ache in whole body Objective Vitals Vital Signs Date Time Temp Pulse Resp B/P (MAP) Pulse Ox O2 Delivery O2 Flow Rate FiO2 02/24/17 08:35 59 02/24/17 08:00 97.5 65 18 150/73 (98) 94 02/24/17 04:44 98.3 76 20 139/64 (89) 95 02/24/17 00:44 98.3 66 18 140/66 (90) 95 02/23/17 20:12 65 02/23/17 19:30 97.2 65 16 162/70 (100) 93 I/O 02/23/17 02/23/17 02/23/17 02/24/17 02/24/17 02/24/17 07:00 15:00 23:00 07:00 15:00 23:00 Intake Total 350 ml 600 ml Balance 350 ml 600 ml Intake Oral 350 ml 600 ml # Voids 3 3 2 # Bowel Movements 0 0 Result Diagram: 02/23/17 0545 02/22/17 0516 Objective Remarks GENERAL: This is a well-nourished, well-developed female patient, lying in bed with complaints of right hip pain. SKIN: No rashes, ecchymoses or lesions. Warm and dry. HEAD: Atraumatic. Normocephalic. Pupils equal round and reactive. Extraocular motions intact. No scleral icterus. No injection or drainage. Nose without bleeding. Airway patent. NECK: Trachea midline. No JVD or lymphadenopathy. Supple. CARDIOVASCULAR: Regular rate and rhythm without gallops, or rubs. 2/6 systolic murmur heard loudest at lower left sternal border. RESPIRATORY: Clear to auscultation. Breath sounds equal bilaterally. No wheezes , rales, or rhonchi. GASTROINTESTINAL: Abdomen soft, non-tender, nondistended. No guarding. MUSCULOSKELETAL: Extremities without clubbing, cyanosis, or edema. Right hip hematoma stable NEUROLOGICAL: Awake and alert. Cranial nerves II through XII intact. Motor and sensory grossly within normal limits. Five out of 5 muscle strength in all muscle groups. Normal speech. A/P Problem List: (1) Fracture of greater trochanter of right femur ICD Code: S72.111A - Displaced fracture of greater trochanter of right femur, initial encounter for closed fracture Status: Acute (2) Thrombocytopenia ICD Code: D69.6 - Thrombocytopenia, unspecified Status: Acute (3) Fall ICD Code: W19.XXXA - Unspecified fall, initial encounter Status: Acute (4) UTI (urinary tract infection) ICD Code: N39.0 - Urinary tract infection, site not specified Status: Acute (5) Anemia ICD Code: D64.9 - Anemia, unspecified Status: Acute Assessment and Plan 02/22: Appreciate ortho recommendation, nonsurgical management, appreciate oncology input, continue holding aspirin Plavix, awaiting records from previous medical facility about the patient possible bone marrow biopsy done him I discussed with the patient and her friend who was at the bedside 02/23: Bone marrow biopsy came back unremarkable, further recommendation per hematology, continue pain management, continue PT a/p: Ms. Craft is a 71-year-old female patient with a known medical history of hypertension, cardiac stent placement and history of CVA who presented to the ED after slipping at home. Patient states she woke up needing to use the restroom, stepped out of bed and with her socks on she slipped on the wood floor hitting her right hip. Status post mechanical fall /Fracture of the greater trochanter of right femur - Hip and pelvis x-ray showing mild degenerative changes without fracture. Pelvis CT showing moderate-sized lateral right thigh soft tissue hematoma with associated nondisplaced fx involving the greater trochanter of the right femur. - Head CT reviewed showing cerebral atrophy and extensive chronic ischemic small vessel vasculopathy. Remote bilateral infarct. No hemorrhage. - Cervical spine CT reviewed showing advanced multilevel degenerative changes , no fracture. - Control pain, Morphine IV given in ED. [place] PO available PRN per pain scale. Morphine IV available PRN for breakthrough pain. - Monitor for constipation, g[place]-Colace PO BID. - Ensure hydration, NS @ 48 ml/hr. Monitor for overload. - Orthopedic consulted for further recommendations and input. Not a surgical candidate. - RN to closely monitor hematoma and notify MD of any changes and enlargement. - Supportive care. Moderate-sized latera hematoma in the right thigh soft tissue Mostly worsened by Thrombocytopenia and the fall Continue holding aspirin and Plavix FFP 2 units Continue apply ice packing Hypertension, chronic: BP elevated on presentation possibly secondary to pain. Will continue home BP medications. Continue to monitor BP trends and control pain. Vasotec IV available PRN hypertension. Thrombocytopenia, ?chronic, giant platelet on smear Microcytic, hypochromic anemia - Hemiglobin 9.1/Hematocrit 27.5. - No lab records from previous visits. - Platelets 43K. Hematology consulted for further input and recommendations. - 2 units of FFP ordered. Will follow CBC. Monitor for bleeding. - Follow labs in am. Abnormal UA: Large amount of leukocyte esterase and high WBC. Urine culture pending. Will place on Rocephin IV, follow cultures. DVT prophylaxis: SCDs. Hold chemical prophylaxis for now due to hematoma. Continue to monitor. Problem Qualifiers (1) Fracture of greater trochanter of right femur: Qualified Codes: S72.114A - Nondisplaced fracture of greater trochanter of right femur, initial encounter for closed fracture (2) Fall: Qualified Codes: W19.XXXA - Unspecified fall, initial encounter (3) UTI (urinary tract infection): Qualified Codes: N39.0 - Urinary tract infection, site not specified; R31.9 - Hematuria, unspecified (4) Anemia: Qualified Codes: D64.9 - Anemia, unspecified Eileen Cedillo MD Feb 24, 2017 18:11
[2017-02-24 20:00] VITALS: BP 136/67; PULSE 68; RESP 16; TEMP 98; O2SAT 95
[2017-02-24] MEDS: MAGNESIUM HYDROXIDE SUSP 30 ML CUP PO PRN (20:51)
[2017-02-24] MEDS: BISACODYL EC 5 MG TABEC PO SCH (20:51)
[2017-02-24] MEDS: SODIUM CHLOR 0.9% 1000 ML INJ 1,000 ML IV SCH (20:53)
[2017-02-24 22:20] LABS: BICARBONATE 25.2 MEQ/L (21.0-32.0)
[2017-02-25] VITALS (11 sets, daily range): BP systolic 123–159; BP diastolic 58–77; PULSE 50–79; RESP 16–18; TEMP 96.5–99; O2SAT 94–96
[2017-02-25] MEDS: ACETAMINOPHEN/HYDROcodone 325 MG/7.5 MG TAB PO PRN ×5 (03:40→21:39)
[2017-02-25 07:42] LABS: BASOPHIL % 0.3 % (0.0-2.0); EOSINOPHIL % 0.5 % (0.0-4.0); HEMATOCRIT 22.4 % (35.0-46.0); LYMPH % 28.1 % (9.0-44.0); LYMPHOCYTE # 1.8 TH/MM3 (1.0-4.8); MEAN CELL VOLUME 77.4 FL (80.0-100.0); MEAN CORPUSCULAR HEMOGLOBIN 26.2 PG (27.0-34.0); MEAN CORPUSCULAR HGB CONC 33.9 % (32.0-36.0); MONO % 24.9 % (0.0-8.0); NEUT % 46.2 % (16.0-70.0); RED BLOOD COUNT 2.89 MIL/MM3 (4.00-5.30); RED CELL DISTRIBUTION WIDTH 19.9 % (11.6-17.2); WHITE BLOOD COUNT 6.5 TH/MM3 (4.0-11.0)
[2017-02-25 07:55] LABS: BICARBONATE 23.9 MEQ/L (21.0-32.0); POTASSIUM 4.4 MEQ/L (3.5-5.1)
[2017-02-25] MEDS: PRAVASTATIN SOD 40 MG TAB PO SCH (08:33)
[2017-02-25] MEDS: PANTOPRAZOLE SOD 20 MG DELAYED RELEASE TAB PO SCH (08:33)
[2017-02-25] MEDS: LISINOPRIL 20 MG TAB PO SCH (08:34)
[2017-02-25] MEDS: METOPROLOL TARTRATE 25 MG TAB PO SCH (08:34)
[2017-02-25] MEDS: SODIUM CHLORIDE 0.9% FLUSH 10 ML FLUSH IV FLUSH SCH ×2 (08:34→21:38)
[2017-02-25] MEDS: DOCUSATE SODIUM 50 MG/SENNA 8.6 MG TAB PO SCH ×2 (08:34→21:38)
[2017-02-25] MEDS: SENNOSIDES 8.6 MG TAB PO PRN ×2 (08:36→21:38)
[2017-02-25] MEDS: DULoxetine HCl DR 20 MG CAP PO SCH (08:36)
[2017-02-25] MEDS: LACTULOSE SYRUP 20 GM/30 ML CUP PO PRN (08:36)
[2017-02-25] MEDS: FLUTICASONE PROPIONATE 44 MCG/ACT 10.6 GM INHALER INH SCH ×2 (08:36→21:46)
[2017-02-25 09:08] LABS: HEMO FLAGS AUTO DIFF
[2017-02-25 09:15] LABS: BANDS 9 % (0-6); BASOPHILS 1 % (0-2); CORRECTED NUCLEATED RBC 1 /100 WBC (0-0); EOSINOPHILS 3 % (0-4); NEUTROPHIL # MANUAL DIFF 3.9 TH/MM3 (1.8-7.7); PLATELET ESTIMATE SMEAR LOW (NORMAL); PLATELET MORPHOLOGY ENLARGED (NORMAL); POLYS (SEG NEUTROPHILS) 51 % (16-70); SCAN/DIFF FINAL DIFF MANUAL; WBC DIFF SAMPLE 100
--- NOTE | 2017-02-25 10:03 | PD.ONC.PN ---
Subjective Subjective Remarks Afebrile overnight. Patient resting in bed. Complaining of pain in her heels and back. Tired of being in the hospital. Waiting to go down for bone marrow biopsy. Objective Data Date Time Temp Pulse Resp B/P (MAP) Pulse Ox O2 Delivery O2 Flow Rate FiO2 02/25/17 08:00 98.4 62 18 146/65 (92) 94 02/25/17 07:45 Room Air 02/25/17 07:29 66 02/25/17 04:00 96.9 67 16 144/65 (91) 95 02/25/17 00:00 97.7 79 18 129/77 (94) 96 02/24/17 20:00 98.0 68 16 136/67 (90) 95 02/24/17 12:00 98.0 60 18 116/57 (76) 96 02/25/17 02/25/17 02/25/17 07:00 15:00 23:00 Intake Total 240 ml Balance 240 ml Result Diagram: 02/25/1771602/25/17716 Laboratory Results Laboratory Tests Test 02/24/17 21:50 02/25/17 07:17 Blood Urea Nitrogen 19 MG/DL 17 MG/DL Creatinine 0.72 MG/DL 0.62 MG/DL Random Glucose 105 MG/DL 101 MG/DL Calcium Level 8.6 MG/DL 8.6 MG/DL Sodium Level 131 MEQ/L 132 MEQ/L Potassium Level 4.0 MEQ/L 4.4 MEQ/L Chloride Level 98 MEQ/L 99 MEQ/L Carbon Dioxide Level 25.2 MEQ/L 23.9 MEQ/L Anion Gap 8 MEQ/L 9 MEQ/L Estimat Glomerular Filtration Rate 80 ML/MIN 95 ML/MIN White Blood Count 6.5 TH/MM3 Red Blood Count 2.89 MIL/MM3 Hemoglobin 7.6 GM/DL Hematocrit 22.4 % Mean Corpuscular Volume 77.4 FL Mean Corpuscular Hemoglobin 26.2 PG Mean Corpuscular Hemoglobin Concent 33.9 % Red Cell Distribution Width 19.9 % Platelet Count TH/MM3 Mean Platelet Volume 10.0 FL Neutrophils (%) (Auto) 46.2 % Lymphocytes (%) (Auto) 28.1 % Monocytes (%) (Auto) 24.9 % Eosinophils (%) (Auto) 0.5 % Basophils (%) (Auto) 0.3 % Neutrophils # (Auto) 3.0 TH/MM3 Lymphocytes # (Auto) 1.8 TH/MM3 Monocytes # (Auto) 1.6 TH/MM3 Eosinophils # (Auto) 0.0 TH/MM3 Basophils # (Auto) 0.0 TH/MM3 CBC Comment AUTO DIFF Differential Total Cells Counted 100 Neutrophils % (Manual) 51 % Band Neutrophils % 9 % Lymphocytes % 20 % Monocytes % 16 % Eosinophils % 3 % Basophils % 1 % Neutrophils # (Manual) 3.9 TH/MM3 Nucleated Red Blood Cells 1 /100 WBC Differential Comment FINAL DIFF MANUAL Platelet Estimate LOW Platelet Morphology Comment ENLARGED Administered Medications Medications (Trade) Dose Ordered Sig/Maite Route PRN Reason Start Time Stop Time Status Last Admin Dose Admin Sodium Chloride (NS Flush) 2 ml UNSCH PRN IV FLUSH FLUSH AFTER USING IV ACCESS 02/21/17 05:15 02/21/17 08:40 Sodium Chloride (NS Flush) 2 ml BID IV FLUSH 02/21/17 21:00 02/25/17 08:34 Ondansetron HCl (Zofran Inj) 4 mg Q6H PRN IVP NAUSEA OR VOMITING 02/21/17 09:45 02/22/17 09:27 Senna/Docusate Sodium (Felicity-Colace) 1 tab BID PO 02/21/17 21:00 02/25/17 08:34 Magnesium Hydroxide (Milk Of Magnesia Liq) 30 ml Q12H PRN PO Mild constipation 02/21/17 09:45 02/24/17 20:51 Sennosides (Senokot) 17.2 mg Q12H PRN PO Moderate constipation 02/21/17 09:45 02/25/17 08:36 Lactulose (Lactulose Liq) 30 ml DAILY PRN PO SEVERE CONSITIPATION 02/21/17 09:45 02/25/17 08:36 Enalaprilat (Vasotec Inj) 1.25 mg Q6H PRN IV PUSH bp>160/90 02/21/17 10:15 02/23/17 11:59 Ceftriaxone Sodium 1000 mg/ Sodium Chloride 100 ml @ 200 mls/hr Q24H IV 02/21/17 15:00 02/24/17 14:22 Morphine Sulfate (Morphine Inj) 2 mg Q3H PRN IV PUSH pain >5 02/21/17 20:30 02/24/17 10:11 Acetaminophen/ Hydrocodone Bitart ([place] 5-325 Mg) 1 tab Q4H PRN PO pain 3-6 02/22/17 07:00 02/22/17 09:27 Acetaminophen/ Hydrocodone Bitart ([place] 7.5-325 Mg) 1 tab Q4H PRN PO pain 7-10 02/22/17 07:00 02/25/17 08:34 Amlodipine Besylate (Norvasc) 10 mg DAILY PO 02/22/17 11:30 02/25/17 08:33 Duloxetine HCl (Cymbalta Dr) 20 mg DAILY PO 02/22/17 11:30 02/25/17 08:36 Fluticasone Propionate (Flovent Hfa 44 Mcg Inh) 2 puff BID INH 02/22/17 11:30 02/25/17 08:36 Metoprolol Tartrate (Lopressor) 25 mg DAILY PO 02/22/17 11:30 02/25/17 08:34 Pravastatin Sodium (Pravachol) 40 mg DAILY PO 02/22/17 11:30 02/25/17 08:33 Lisinopril (Prinivil) 40 mg DAILY PO 02/22/17 11:30 02/25/17 08:34 Pantoprazole Sodium (Protonix) 20 mg DAILY PO 02/23/17 09:00 02/25/17 08:33 Bisacodyl (Dulcolax Ec) 10 mg HS PO 02/23/17 21:00 02/24/17 20:51 Objective Remarks GENERAL: Anxious, elderly female lying in bed. SKIN: Warm and dry. HEAD: Normocephalic. EYES: No injection or drainage. NECK: Supple, trachea midline. CARDIOVASCULAR: Regular rate and rhythm RESPIRATORY: Breath sounds equal bilaterally. No accessory muscle use. GASTROINTESTINAL: Abdomen soft, non-tender, nondistended. EXTREMITIES: No cyanosis. heels with cracking. NEUROLOGICAL: awake and alert, normal speech Assessment/Plan Problem List: (1) Microcytic anemia ICD Codes: D50.9 - Iron deficiency anemia, unspecified Plan: 02/25: BMB this afternoon in IR. monitor CBC --s/p Venofer infusion --Microcytic hypochromic anemia due to iron deficiency. (2) Thrombocytopenia ICD Codes: D69.6 - Thrombocytopenia, unspecified Status: Acute Plan: -- BMB done at [facility] show a normocellular marrow with trilineage hematopoiesis, adequate number of megakaryocytes a few hypoablated. There are no increased blasts. Bone marrow was done in June 2014. (3) Fracture of greater trochanter of right femur ICD Codes: S72.111A - Displaced fracture of greater trochanter of right femur, initial encounter for closed fracture Status: Acute Plan: --management per ortho (4) Hematoma ICD Codes: T14.8XXA - Other injury of unspecified body region, initial encounter Plan: --Hematoma due to thrombocytopenia and being on Plavix and aspirin. Assessment 71/o female admitted with hip fracture s/p fall. Hematology consulted for evaluation of anemia and thrombocytopenia. h/o Hypertension. Hypercholesterolemia. Coronary artery disease. Osteoporosis Attending Statement Complaining of same right hip pain For bone marrow biopsy by IR today Patient could be discharged to the [facility] and will be followed as an outpatient Patient does not need to stay in the hospital to get the results of the bone marrow Patient is anxious to go back to the [facility] Patient is clear to d/c after the bone marrow biopsy The exam, history, and the medical decision-making described in the above note were completed with the assistance of the mid-level provider. I reviewed and agree with the findings presented. I attest that I had a [id number] encounter with the patient on the same day, and personally performed and documented my assessment and findings in the medical record. Problem Qualifiers (1) Fracture of greater trochanter of right femur: Qualified Codes: S72.114A - Nondisplaced fracture of greater trochanter of right femur, initial encounter for closed fracture Brooke Heard Feb 25, 2017 10:03 Henrique Tse MD Feb 25, 2017 16:46
[2017-02-25] MEDS ORDERED: LIDOCAINE HCL 1% 20 ML VIAL ONE (13:57)
[2017-02-25] MEDS ORDERED: MIDAZOLAM HCL 2 MG/2 ML VIAL ONE (14:26)
--- NOTE | 2017-02-25 15:09 | PD.RAD ---
Post CT Procedure Prog Note Pre Procedure Diagnosis: (1) Anemia (2) Thrombocytopenia Post Procedure Diagnosis: (1) Anemia (2) Thrombocytopenia Procedure Date: Feb 25, 2017 Supervising Radiologist: Andrea Oro Anesthesia: Conscious Sedation Plan of Activity Patient to Unit: ROPU Patient Condition: Good See PACS Report for procedural detail/treatment Andrea Oro MD Feb 25, 2017 15:08
--- NOTE | 2017-02-25 15:43 | RADRPT ---
EXAM DATE/TIME: 02/25/2017 14:49 [place] COMPARISON: No previous studies available for comparison. INDICATIONS : Thrombocytopenia; anemia, microcytic hypochromic. SEDATION TIME: 20 minutes BIOPSY SITE: Right iliac MEDICATION(S): 1.) 2 mg midazolam (Versed) IV 2.) 150 mcg fentanyl (Sublimaze) IV DEVICE(S): 1.) 11 gauge Bone biopsy needle MEDICAL HISTORY : Hypertension. SURGICAL HISTORY : None. ENCOUNTER: Initial ACUITY: 1 day PAIN SCORE: 0/10 LOCATION: iliac A total of one core specimen(s) were obtained and sent to the laboratory for pathologic evaluation. PROCEDURE: 1. CT guided bone marrow biopsy. 2. Conscious sedation with continuous EKG and oximetry monitoring. 3. EKG and oximetry remained stable throughout the procedure. Prior to the procedure informed consent was obtained. Any appropriate prior imaging studies were rev iewed. Using automated exposure control and adjustment of the mA and/or kV according to patient size , radiation dose was kept as low as reasonably achievable to obtain optimal diagnostic quality images . DICOM format image data is available electronically for review and comparison. The site was prepped in a sterile fashion. Full sterile technique was used, including cap, mask, [place] rile gloves and gown and a large sterile sheet. Hand hygiene and 2% chlorhexidine and/or betadine/al cohol prep was utilized per protocol for cutaneous antisepsis. The skin and subcutaneous tissues wer e infiltrated with local anesthetic solution. With CT guidance the previously identified target was localized. Biopsy was performed using the presc ribed needle as above. Following biopsy marrow aspiration was performed with repeat puncture. [place] te hemostasis was obtained with compression at the puncture site. Follow-up CT scan reveals no hemorrhage. Conscious sedation was performed with the prescribed dosages and duration as above in the presence of an independent trained radiology nurse to assist in the monitoring of the patient. EKG and oximetry remained stable throughout the procedure. The patient tolerated the procedure well and there were no complications. The patient was sent to Radiology Outpatient Unit in stable condition. CONCLUSION: 1. Uncomplicated CT guided bone marrow aspirate. 2. Uncomplicated CT guided bone marrow biopsy. Andrea Oro MD on February 25, 2017 at 15:41 Board Certified Radiologist. This report was verified electronically.
[2017-02-25 15:54] LABS: BONE MARROW PROCESSING COMPLETE; IRON STAIN DONE; JENNER GIEMSA STAIN DONE
--- NOTE | 2017-02-25 17:05 | HHI.PR ---
Subjective Remarks Resting in bed He doesn't comfortable completely but stated she is feeling little better in general Objective Vitals Vital Signs Date Time Temp Pulse Resp B/P (MAP) Pulse Ox O2 Delivery O2 Flow Rate FiO2 02/25/17 16:21 53 16 126/66 (86) 95 02/25/17 16:00 50 18 128/65 (86) 95 02/25/17 15:45 52 16 123/64 (83) 96 02/25/17 15:30 54 18 127/67 (87) 94 02/25/17 12:00 99.0 60 18 159/73 (101) 94 02/25/17 08:00 98.4 62 18 146/65 (92) 94 02/25/17 07:45 Room Air 02/25/17 07:29 66 02/25/17 04:00 96.9 67 16 144/65 (91) 95 02/25/17 00:00 97.7 79 18 129/77 (94) 96 02/24/17 20:00 98.0 68 16 136/67 (90) 95 I/O 02/24/17 02/24/17 02/24/17 02/25/17 02/25/17 02/25/17 07:00 15:00 23:00 07:00 15:00 23:00 Intake Total 600 ml 480 ml 240 ml Balance 600 ml 480 ml 240 ml Intake Oral 600 ml 480 ml 240 ml # Voids 2 5 2 3 # Bowel Movements 0 Result Diagram: 02/25/1771602/25/17716 Objective Remarks GENERAL: This is a well-nourished, well-developed female patient, lying in bed with complaints of right hip pain. SKIN: No rashes, ecchymoses or lesions. Warm and dry. HEAD: Atraumatic. Normocephalic. Pupils equal round and reactive. Extraocular motions intact. No scleral icterus. No injection or drainage. Nose without bleeding. Airway patent. NECK: Trachea midline. No JVD or lymphadenopathy. Supple. CARDIOVASCULAR: Regular rate and rhythm without gallops, or rubs. 2/6 systolic murmur heard loudest at lower left sternal border. RESPIRATORY: Clear to auscultation. Breath sounds equal bilaterally. No wheezes , rales, or rhonchi. GASTROINTESTINAL: Abdomen soft, non-tender, nondistended. No guarding. MUSCULOSKELETAL: Extremities without clubbing, cyanosis, or edema. Right hip hematoma stable NEUROLOGICAL: Awake and alert. Cranial nerves II through XII intact. Motor and sensory grossly within normal limits. Five out of 5 muscle strength in all muscle groups. Normal speech. A/P Problem List: (1) Fracture of greater trochanter of right femur ICD Code: S72.111A - Displaced fracture of greater trochanter of right femur, initial encounter for closed fracture Status: Acute (2) Thrombocytopenia ICD Code: D69.6 - Thrombocytopenia, unspecified Status: Acute (3) Fall ICD Code: W19.XXXA - Unspecified fall, initial encounter Status: Acute (4) UTI (urinary tract infection) ICD Code: N39.0 - Urinary tract infection, site not specified Status: Acute (5) Anemia ICD Code: D64.9 - Anemia, unspecified Status: Acute Assessment and Plan 02/22: Appreciate ortho recommendation, nonsurgical management, appreciate oncology input, continue holding aspirin Plavix, awaiting records from previous medical facility about the patient possible bone marrow biopsy done him I discussed with the patient and her friend who was at the bedside 02/23: Bone marrow biopsy came back unremarkable, further recommendation per hematology, continue pain management, continue PT 02/25 : Bone marrow biopsy later today, check H&H and platelet count in a.m. if stable possible discharge if cleared by oncology a/p: Ms. Craft is a 71-year-old female patient with a known medical history of hypertension, cardiac stent placement and history of CVA who presented to the ED after slipping at home. Patient states she woke up needing to use the restroom, stepped out of bed and with her socks on she slipped on the wood floor hitting her right hip. Status post mechanical fall /Fracture of the greater trochanter of right femur - Hip and pelvis x-ray showing mild degenerative changes without fracture. Pelvis CT showing moderate-sized lateral right thigh soft tissue hematoma with associated nondisplaced fx involving the greater trochanter of the right femur. - Head CT reviewed showing cerebral atrophy and extensive chronic ischemic small vessel vasculopathy. Remote bilateral infarct. No hemorrhage. - Cervical spine CT reviewed showing advanced multilevel degenerative changes , no fracture. - Control pain, Morphine IV given in ED. [place] PO available PRN per pain scale. Morphine IV available PRN for breakthrough pain. - Monitor for constipation, [place]-Colace PO BID. - Ensure hydration, NS @ 48 ml/hr. Monitor for overload. - Orthopedic consulted for further recommendations and input. Not a surgical candidate. - RN to closely monitor hematoma and notify MD of any changes and enlargement. - Supportive care. Moderate-sized latera hematoma in the right thigh soft tissue Mostly worsened by Thrombocytopenia and the fall Continue holding aspirin and Plavix FFP 2 units Continue apply ice packing Hypertension, chronic: BP elevated on presentation possibly secondary to pain. Will continue home BP medications. Continue to monitor BP trends and control pain. Vasotec IV available PRN hypertension. Thrombocytopenia, ?chronic, giant platelet on smear Microcytic, hypochromic anemia - Hemiglobin 9.1/Hematocrit 27.5. - No lab records from previous visits. - Platelets 43K. Hematology consulted for further input and recommendations. - 2 units of FFP ordered. Will follow CBC. Monitor for bleeding. - Follow labs in am. Abnormal UA: Large amount of leukocyte esterase and high WBC. Urine culture pending. Will place on Rocephin IV, follow cultures. DVT prophylaxis: SCDs. Hold chemical prophylaxis for now due to hematoma. Continue to monitor. Problem Qualifiers (1) Fracture of greater trochanter of right femur: Qualified Codes: S72.114A - Nondisplaced fracture of greater trochanter of right femur, initial encounter for closed fracture (2) Fall: Qualified Codes: W19.XXXA - Unspecified fall, initial encounter (3) UTI (urinary tract infection): Qualified Codes: N39.0 - Urinary tract infection, site not specified; R31.9 - Hematuria, unspecified (4) Anemia: Qualified Codes: D64.9 - Anemia, unspecified Eileen Cedillo MD Feb 25, 2017 17:05
[2017-02-25] MEDS: cefTRIAXone INJ 1,000 MG in SODIUM CHLORIDE 0.9% INJ 100 ML IV SCH (17:16)
[2017-02-25] MEDS: SODIUM CHLOR 0.9% 1000 ML INJ 1,000 ML IV SCH (21:35)
[2017-02-25] MEDS: MAGNESIUM HYDROXIDE SUSP 30 ML CUP PO PRN (21:38)
[2017-02-25] MEDS: BISACODYL EC 5 MG TABEC PO SCH (21:38)
[2017-02-26] VITALS: BP 138/70; PULSE 82; RESP 17; TEMP 98.2; O2SAT 94
[2017-02-26] MEDS: ACETAMINOPHEN/HYDROcodone 325 MG/7.5 MG TAB PO PRN ×3 (03:53→14:31)
[2017-02-26 04:00] VITALS: BP 144/69; PULSE 69; RESP 16; TEMP 98.2; O2SAT 95
[2017-02-26 06:42] LABS: HEMATOCRIT 22.6 % (35.0-46.0); MEAN CELL VOLUME 77.3 FL (80.0-100.0); MEAN CORPUSCULAR HEMOGLOBIN 26.5 PG (27.0-34.0); MEAN CORPUSCULAR HGB CONC 34.3 % (32.0-36.0); PLATELET COUNT 76 TH/MM3 (150-450); RED BLOOD COUNT 2.93 MIL/MM3 (4.00-5.30); RED CELL DISTRIBUTION WIDTH 20.1 % (11.6-17.2); WHITE BLOOD COUNT 6.3 TH/MM3 (4.0-11.0)
[2017-02-26 06:44] LABS: HEMO FLAGS AUTO DIFF
--- NOTE | 2017-02-26 06:57 | PD.ORT.PN ---
Subjective Subjective Remarks Resting comfortably with pain controlled. Objective Vitals Vital Signs Date Time Temp Pulse Resp B/P (MAP) Pulse Ox O2 Delivery O2 Flow Rate FiO2 02/26/17 04:00 98.2 69 16 144/69 (94) 95 02/26/17 00:00 98.2 82 17 138/70 (92) 94 02/25/17 21:10 51 02/25/17 20:00 97.4 77 16 143/63 (89) 95 02/25/17 16:21 53 16 126/66 (86) 95 02/25/17 16:00 96.5 58 18 156/58 (90) 94 02/25/17 16:00 50 18 128/65 (86) 95 02/25/17 15:45 52 16 123/64 (83) 96 02/25/17 15:30 54 18 127/67 (87) 94 02/25/17 12:00 99.0 60 18 159/73 (101) 94 02/25/17 08:00 98.4 62 18 146/65 (92) 94 02/25/17 07:45 Room Air 02/25/17 07:29 66 I/O 02/25/17 02/25/17 02/25/17 02/26/17 02/26/17 02/26/17 07:00 15:00 23:00 07:00 15:00 23:00 Intake Total 240 ml 360 ml 720 ml 360 ml Balance 240 ml 360 ml 720 ml 360 ml Intake Oral 240 ml 360 ml 720 ml 360 ml # Voids 3 7 4 2 # Bowel Movements 0 Result Diagram: 02/26/17 0155 02/25/17 0717 Imaging Last 72 hours Impressions Bone Biopsy CT 02/25/17 0000 Signed Impressions: Service Date/Time: Saturday, February 25, 2017 14:49 - CONCLUSION: 1. Uncomplicated CT guided bone marrow aspirate. 2. Uncomplicated CT guided bone marrow biopsy. Andrea Oro MD Objective Remarks RLE: pain over lateral hip. pain with motion. nvi Assessment & Plan Assessment and Plan 1) Right Greater Trochanter Fx - nonoperative treatment -50%WB -no active abduction -ortho cleared for DC back to SNF -f/u with Ki or SAL in 2 weeks Torres Ford Jr. Feb 26, 2017 06:57
[2017-02-26 07:31] LABS: BANDS 4 % (0-6); EOSINOPHILS 1 % (0-4); MYELOCYTES 1 % (0-0); NEUTROPHIL # MANUAL DIFF 2.8 TH/MM3 (1.8-7.7); PLATELET ESTIMATE SMEAR LOW (NORMAL); POLYS (SEG NEUTROPHILS) 39 % (16-70); WBC DIFF SAMPLE 100
[2017-02-26 07:32] LABS: PLATELET MORPHOLOGY ENLARGED (NORMAL); SCAN/DIFF FINAL DIFF MANUAL
[2017-02-26 07:33] LABS: SPHEROCYTES OCC (NORMAL)
[2017-02-26 08:00] VITALS: BP 152/69; PULSE 81; RESP 18; TEMP 98.5; O2SAT 96
[2017-02-26] MEDS: DULoxetine HCl DR 20 MG CAP PO SCH (09:50)
[2017-02-26] MEDS: LISINOPRIL 20 MG TAB PO SCH (09:50)
[2017-02-26] MEDS: PANTOPRAZOLE SOD 20 MG DELAYED RELEASE TAB PO SCH (09:50)
[2017-02-26] MEDS: PRAVASTATIN SOD 40 MG TAB PO SCH (09:50)
[2017-02-26] MEDS: DOCUSATE SODIUM 50 MG/SENNA 8.6 MG TAB PO SCH (09:50)
[2017-02-26] MEDS: METOPROLOL TARTRATE 25 MG TAB PO SCH (09:50)
[2017-02-26 12:00] VITALS: BP 165/72; PULSE 61; RESP 19; TEMP 97.6; O2SAT 96
[2017-02-26] MEDS: cefTRIAXone INJ 1,000 MG in SODIUM CHLORIDE 0.9% INJ 100 ML IV SCH (14:32)
[2017-02-26 16:00] VITALS: BP 169/74; PULSE 60; RESP 19; TEMP 98.1; O2SAT 94
--- NOTE | 2017-02-26 16:07 | HHI.DCPOC ---
Discharge Care Plan Goals to Promote Your Health * To prevent worsening of your condition and complications take all medications as prescribed * To maintain your health at the optimal level follow all discharge instructions Directions to Meet Your Goals Take your medications as prescribed Follow your dietary instruction Follow activity as directed Keep your appointments as scheduled Take your immunizations and boosters as scheduled If your symptoms worsen call your PCP, if no PCP go to Urgent Care Center or Emergency Room Smoking is Dangerous to Your Health. Avoid second hand smoke Call the 24-hour hour crisis hotline for domestic abuse at Sheila Rinaldi MD Feb 26, 2017 16:07
--- NOTE | 2017-02-26 16:16 | HHI.DS ---
Discharge Summary Admission Date Feb 23, 2017 at 11:17 Discharge Date: Feb 26, 2017 Admitting Diagnosis right greater trochanter fracture, hematoma (1) Fracture of greater trochanter of right femur ICD Code: S72.111A - Displaced fracture of greater trochanter of right femur, initial encounter for closed fracture Status: Acute (2) Thrombocytopenia ICD Code: D69.6 - Thrombocytopenia, unspecified Status: Acute (3) Fall ICD Code: W19.XXXA - Unspecified fall, initial encounter Status: Acute (4) UTI (urinary tract infection) ICD Code: N39.0 - Urinary tract infection, site not specified Status: Acute (5) Anemia ICD Code: D64.9 - Anemia, unspecified Status: Acute Procedures Bone Marrow Biopsy x 2 Brief History - From Admission Written by Lakeshia Suresh, acting as scribe for Dr. Cedillo on 02/21/17 at 10:24. Ms. Craft is a 71-year-old female patient with a known medical history of hypertension, cardiac stent placement and history of CVA who presented to the ED after slipping at home. Patient states she woke up needing to use the restroom, stepped out of bed and with her socks on she slipped on the wood floor landing on her right hip. Patient complaints of 9/10 pain, denies any radiation of pain, states that movement aggravates pain, rest relieves pain. Denies any loss of consciousness, denies any dizziness or lightheadedness, denies hitting her head. Denies any weakness in legs. Denies any numbness or tingling in extremities. Denies any recent illness including fever, chills, chest pain, headache, ab pain, n/v/d or dysuria. At this time patient is in severe pain, unable to even turn in bed without significant pain. Thrombocytopenia also noted on labs today. Patient unaware of previousH/O easy bruising or ecchymosis, not aware of having a low platelet count in the past CBC/BMP: 02/26/17 0155 02/25/17 0717 Significant Findings Laboratory Tests Test 02/24/17 21:50 02/25/17 07:17 02/25/17 15:05 02/26/17 01:55 Blood Urea Nitrogen 19 MG/DL (7-18) Sodium Level 131 MEQ/L (136-145) 132 MEQ/L (136-145) Estimat Glomerular Filtration Rate 80 ML/MIN (>89) Red Blood Count 2.89 MIL/MM3 (4.00-5.30) 2.93 MIL/MM3 (4.00-5.30) Hemoglobin 7.6 GM/DL (11.6-15.3) 7.8 GM/DL (11.6-15.3) Hematocrit 22.4 % (35.0-46.0) 22.6 % (35.0-46.0) Mean Corpuscular Volume 77.4 FL (80.0-100.0) 77.3 FL (80.0-100.0) Mean Corpuscular Hemoglobin 26.2 PG (27.0-34.0) 26.5 PG (27.0-34.0) Red Cell Distribution Width 19.9 % (11.6-17.2) 20.1 % (11.6-17.2) Monocytes (%) (Auto) 24.9 % (0.0-8.0) Monocytes # (Auto) 1.6 TH/MM3 (0-0.9) Band Neutrophils % 9 % (0-6) Monocytes % 16 % (0-8) 21 % (0-8) Nucleated Red Blood Cells 1 /100 WBC (0-0) Platelet Estimate LOW (NORMAL) LOW (NORMAL) Platelet Morphology Comment ENLARGED (NORMAL) ENLARGED (NORMAL) Platelet Count 76 TH/MM3 (150-450) Mean Platelet Volume 12.0 FL (7.0-11.0) Myelocytes 1 % (0-0) Spherocytes OCC (NORMAL) Imaging Last Impressions Bone Biopsy CT 02/25/17 0000 Signed Impressions: Service Date/Time: Saturday, February 25, 2017 14:49 - CONCLUSION: 1. Uncomplicated CT guided bone marrow aspirate. 2. Uncomplicated CT guided bone marrow biopsy. Andrea Oro MD Pelvis CT 02/21/17 0000 Signed Impressions: Service Date/Time: Tuesday, February 21, 2017 07:36 - CONCLUSION: 1. Moderate-sized lateral right thigh soft tissue hematoma with associated nondisplaced fracture involving the greater trochanter of the right femur. Andrea Oro MD Hip and Pelvis X-Ray 02/21/17 0000 Signed Impressions: Service Date/Time: Tuesday, February 21, 2017 05:39 - CONCLUSION: Mild degenerative changes without fracture. Edenilson Garza MD Head CT 02/21/17 0000 Signed Impressions: Service Date/Time: Tuesday, February 21, 2017 05:26 - CONCLUSION: 1. Cerebral atrophy and extensive chronic ischemic small vessel vasculopathy. 2. Remote bilateral infarct. 3. No hemorrhage. Edenilson Garza MD Cervical Spine CT 02/21/17 0000 Signed Impressions: Service Date/Time: Tuesday, February 21, 2017 05:27 - CONCLUSION: 1. Advanced multilevel degenerative changes. 2. No fracture. Edenilson Garza MD PE at Discharge GENERAL: This is a well-nourished, well-developed female patient, lying in bed with complaints of right hip pain. SKIN: No rashes, ecchymoses or lesions. Warm and dry. HEAD: Atraumatic. Normocephalic. Pupils equal round and reactive. Extraocular motions intact. No scleral icterus. No injection or drainage. Nose without bleeding. Airway patent. NECK: Trachea midline. No JVD or lymphadenopathy. Supple. CARDIOVASCULAR: Regular rate and rhythm without gallops, or rubs. 2/6 systolic murmur heard loudest at lower left sternal border. RESPIRATORY: Clear to auscultation. Breath sounds equal bilaterally. No wheezes , rales, or rhonchi. GASTROINTESTINAL: Abdomen soft, non-tender, nondistended. No guarding. MUSCULOSKELETAL: Extremities without clubbing, cyanosis, or edema. Right hip hematoma stable NEUROLOGICAL: Awake and alert. Cranial nerves II through XII intact. Motor and sensory grossly within normal limits. Five out of 5 muscle strength in all muscle groups. Normal speech. Hospital Course Status post mechanical fall /Fracture of the greater trochanter of right femur - Hip and pelvis x-ray showing mild degenerative changes without fracture. Pelvis CT showing moderate-sized lateral right thigh soft tissue hematoma with associated nondisplaced fx involving the greater trochanter of the right femur. - Head CT reviewed showing cerebral atrophy and extensive chronic ischemic small vessel vasculopathy. Remote bilateral infarct. No hemorrhage. - Cervical spine CT reviewed showing advanced multilevel degenerative changes , no fracture. - [place] for pain - Orthopedic consulted for further recommendations and input. Not a surgical candidate. F/U with ortho in 2 weeks Moderate-sized latera hematoma in the right thigh soft tissue Mostly worsened by Thrombocytopenia and the fall Continue holding aspirin and Plavix FFP 2 units Continue apply ice packing Hypertension, chronic: BP elevated on presentation possibly secondary to pain. Will continue home BP medications. Continue to monitor BP trends and control pain. Vasotec IV available PRN hypertension. Thrombocytopenia, ?chronic, giant platelet on smear Microcytic, hypochromic anemia - Platelets 43K. Hematology consulted for further input and recommendations. - 2 units of FFP ordered. - H&H stable at 7.8/22.6; repeat CBC in 2-3 days as outpatient - BM biopsy as inpatient; f/u hematology as outpatient Abnormal UA: Large amount of leukocyte esterase and high WBC. Urine culture pending. Completed course of Rocephin. Pt Condition on Discharge: Stable Discharge Disposition: Discharge to SNF Discharge Time: > 30 minutes Discharge Instructions DIET: Follow Instructions for: As Tolerated, No Restrictions Activities you can perform: See Additionl Instruction Other Activity Instructions: Per PT instructions Follow up Referrals: Oncology/Hematology - 2 Weeks Orthopedics - 2 Weeks @ [facility] with Kehinde Emerson MD New Orders: CBC WITH DIFF - 2-3 Days New Medications: Hydrocodone-Acetaminophen ([place]) 7.5-325 mg Tab 1 TAB PO Q4H PRN for PAIN, #42 TAB 0 Refills Walker/Adult/Folding (Walker/Adult/Folding) 1 Mis Mis EA .ROUTE DIRECTED, #1 0 Refills Continued Medications: Alendronate (Fosamax) 70 Mg Tab 70 MG PO Q7D for Osteoporosis Treatment, #4 TAB 0 Refills Amlodipine (Amlodipine) 10 Mg Tab 10 MG PO DAILY for Blood Pressure Management, #30 TAB 0 Refills Aspirin (Aspirin) 81 Mg Chew 81 MG CHEW DAILY, TAB 0 Refills Clopidogrel (Clopidogrel) 75 Mg Tab 75 MG PO DAILY for Blood Clot Prevention, #30 TAB [address] (Duloxetine DR) 20 Mg Capdr 20 MG PO DAILY, #30 CAP 0 Refills Fluticasone 10.6 GM Inh (Flovent Hfa 10.6 GM Inh) 44 Mcg/Act Inh 2 PUFF INH BID for Asthma Management, #1 INHALER 0 Refills Use daily at the same time. Lisinopril (Lisinopril) 40 Mg Tab 40 MG PO DAILY for Blood Pressure Management, #30 TAB 0 Refills Metoprolol Tartrate (Metoprolol Tartrate) 25 Mg Tab 25 MG PO DAILY, #30 TAB 0 Refills Omeprazole (Omeprazole) 20 Mg Tab 20 MG PO DAILY, #30 TAB 0 Refills Pravastatin (Pravastatin) 40 Mg Tab 40 MG PO DAILY for Cholesterol Management, #30 TAB 0 Refills Umeclidinium-Vilanterol Inh (Anoro Ellipta Inh) 62.5-25 Mcg/Act Aero 1 PUFF INH DAILY for COPD, #1 INHALER 0 Refills Sheila Rinaldi MD Feb 26, 2017 16:16
== END 2017-02-26 18:16 | DRG 536 ==
LOC: NEPE 04:47 → NEDA 08:44 → INTOOBSV 08:44 → N06A 12:19 → OBSVTOIN 02-23 11:17
PROVIDERS: ADMIT Hospitalist; ATTEND Family Medicine
PROC: 30253K1 (ICD-10-PCS; 2017-02-21)
PROC: 07DR3ZX Extraction of Iliac Bone Marrow, Percutaneous Approach, Diagnostic (ICD-10-PCS; principal; 2017-02-25)
DX: S72.114A Nondisplaced fracture of greater trochanter of right femur, initial encounter for closed fracture (principal); D69.6 Thrombocytopenia, unspecified; I10 Essential (primary) hypertension; D50.9 Iron deficiency anemia, unspecified; F17.210 Nicotine dependence, cigarettes, uncomplicated; N39.0 Urinary tract infection, site not specified; I25.10 Atherosclerotic heart disease of native coronary artery without angina pectoris; S70.11XA Contusion of right thigh, initial encounter; M81.0 Age-related osteoporosis without current pathological fracture; E78.00 Pure hypercholesterolemia, unspecified; K59.00 Constipation, unspecified; W01.0XXA Fall on same level from slipping, tripping and stumbling without subsequent striking against object, initial encounter; Y92.122 Bedroom in nursing home as the place of occurrence of the external cause; Z95.5 Presence of coronary angioplasty implant and graft; Z86.73 Personal history of transient ischemic attack (TIA), and cerebral infarction without residual deficits; Z79.02 Long term (current) use of antithrombotics/antiplatelets; Z79.82 Long term (current) use of aspirin; Z23 Encounter for immunization
CPT/HCPCS: 36430; 38221; 70450; 72125; 72192; 73502; 76937; 77012; 80048; 81001; 82607; 82728; 82746; 82948; 83540; 83550; 84466; 85007; 85014; 85018; 85025; 85027; 85097; 85384; 85610; 85730; 86900; 86901; 86927; 87077; 87086; 87186; 88184; 88185; 88237; 88264; 88280; 88305; 88311; 88313; 90471; 90472; 90686; 90732; 96365; 96372; 96375; 96376; 99152; 99153; C1830; G0008; G0009; G0378; J0696; J1756; J2250; J2270; J2405; J3010; J7030; P9017; Q2038

== ENCOUNTER 2017-05-19 06:34 | Emergency (ER) | payer MEDICARE, OTHER ==
[~2017-05-19] VITALS: Ht 167.6 cm; Wt 75.0 kg
[~2017-05-19 06:34] MED LIST: AMLO10TA2 PO; ASPI-516 CHEW; CLOP75TA PO; DULO1CAP PO; FLUTI44I INH; FOSA70TA PO; HYDR-3288 PO; LISI40TA PO; METO25TA3 PO; OMEP20TA93 PO; PRAV40TA2 PO; UMEC1AER INH; WALKER/ADULT/FO1 MIS
[2017-05-19 06:37] VITALS: BP 177/74; PULSE 68; RESP 18; TEMP 102.7; O2SAT 100
[2017-05-19] MEDS ORDERED: ACETAMINOPHEN 325 MG TAB PO ONE (07:00)
[2017-05-19] MEDS ORDERED: ONDA4TAB15 (07:06)
[2017-05-19] MEDS ORDERED: LOPE2CAP PO (07:06)
[2017-05-19] MEDS ORDERED: LORA1TAB12 PO (07:06)
[2017-05-19] MEDS ORDERED: VITA500T83 PO (07:06)
[2017-05-19] MEDS ORDERED: FERR325T18 PO (07:06)
[2017-05-19] MEDS ORDERED: ESCI20TA PO (07:06)
[2017-05-19] MEDS ORDERED: ACET325C (07:06)
[2017-05-19] MEDS ORDERED: POLY17S PO (07:06)
[2017-05-19] MEDS ORDERED: BISA10SU3 RECTAL (07:06)
[2017-05-19] MEDS ORDERED: METO50TA PO (07:06)
[2017-05-19] MEDS ORDERED: UMEC1AER INH (07:06)
[2017-05-19] MEDS ORDERED: CENTCHW4 CHEW (07:06)
[2017-05-19] MEDS ORDERED: ARAN200I2 SQ (07:06)
--- NOTE | 2017-05-19 07:21 | RADRPT ---
EXAM DATE/TIME: 05/19/2017 07:01 [place] COMPARISON: No previous studies available for comparison. INDICATIONS : Confusion, weakness, short of breath. MEDICAL HISTORY : None. SURGICAL HISTORY : None. ENCOUNTER: Initial ACUITY: 1 day PAIN SCORE: Non-responsive. LOCATION: Bilateral chest FINDINGS: Cardiomegaly. Clear lungs. Osseous structures are intact. Remote right proximal humerus fracture. CONCLUSION: No acute disease. Shaw Bailey MD on May 19, 2017 at 7:19 Board Certified Radiologist. This report was verified electronically.
--- NOTE | 2017-05-19 07:21 | PD ---
HPI Chief Complaint: Altered Mental Status Time Seen by Provider: 07:17 Travel History International Travel<30 days: No Contact w/Intl Traveler<30days: No Traveled to known affect area: No History of Present Illness HPI 72-year-old female jail patient presents to the ER today brought in by EMS because staff states that she looks more lethargic than usual, having a fever 102. Patient in this not a reliable historian but denies any current issues. She is not able to give me any further issues history. Modifying Factors: None Associated Signs & Symptoms: Increased lethargy, fever Risk Factors: Elderly, jail PFSH Past Medical History High Cholesterol: Yes COPD: Yes Cerebrovascular Accident: Yes Coronary Artery Disease: Yes Dementia: Yes Hypertension: Yes Musculoskeletal: Yes (HEMIPLEGIA) Neurologic: No Past Surgical History Other Surgery: No Social History Alcohol Use: No Tobacco Use: No Substance Use: No Allergies-Medications (Allergen,Severity, Reaction): Coded Allergies: codeine (Verified Allergy, Unknown, 05/19/17) Reported Meds & Prescriptions Reported Meds & Active Scripts Active [place] (Hydrocodone-Acetaminophen) 7.5-325 mg Tab 1 Tab PO Q4H PRN Walker/Adult/Folding (Device) 1 Mis Mis Ea .ROUTE DIRECTED Reported Loperamide (Loperamide HCl) 2 Mg Cap 2 Mg PO DIRECTED PRN One capsule after each loose stool. Not to exceed 8 capsules per day. Bisacodyl Supp (Bisacodyl) 10 Mg Supp 10 Mg RECTAL DAILY PRN Acetaminophen 325 Mg Capsule Aranesp (Albumin Free) Inj (Darbepoetin Brock Inj) 200 Mcg/0.4 Ml Inj 200 Mcg SQ Q7D Anoro Ellipta Inh (Umeclidinium/Vilanterol) 62.5-25 Mcg/Act Aero 1 Puff INH DAILY Lorazepam 1 Mg Tab 1 Mg PO Q6H PRN Centrum (Multiple Vitamins W/ Minerals) 1 Chew 1 Tab CHEW DAILY Metoprolol Tartrate 50 Mg Tab 50 Mg PO BID Ferrous Sulfate 325 Mg (65 Mg Iron) Tablet 325 Mg PO BIDPC Escitalopram (Escitalopram Oxalate) 20 Mg Tab 20 Mg PO DAILY Vitamin C ER (Ascorbic Acid) 500 Mg Marcello 500 Mg PO Polyethylene Glycol 3350 Powder (Polyethylene Glycol) 17 Gram Pow 17 Gm PO DAILY Ondansetron (Ondansetron HCl) 4 Mg Tab Anoro Ellipta Inh (Umeclidinium/Vilanterol) 62.5-25 Mcg/Act Aero 1 Puff INH DAILY Pravastatin 40 Mg Tab 40 Mg PO DAILY Omeprazole 20 Mg Tab 20 Mg PO DAILY Metoprolol Tartrate 25 Mg Tab 25 Mg PO DAILY Lisinopril 40 Mg Tab 40 Mg PO DAILY Flovent Hfa 10.6 GM Inh (Fluticasone Propionate) 44 Mcg/Act Inh 2 Puff INH BID Use daily at the same time. Duloxetine DR (Duloxetine HCl) 20 Mg Capdr 20 Mg PO DAILY Clopidogrel (Clopidogrel Bisulfate) 75 Mg Tab 75 Mg PO DAILY Aspirin 81 Mg Chew 81 Mg CHEW DAILY Amlodipine (Amlodipine Besylate) 10 Mg Tab 10 Mg PO DAILY Fosamax (Alendronate Sodium) 70 Mg Tab 70 Mg PO Q7D Review of Systems ROS Limitations: Altered Mental Status Physical Exam Narrative GENERAL: Well-developed elderly white female patient currently an mild distress. Awake, alert, not oriented. SKIN: Focused skin assessment warm/dry. HEAD: Atraumatic. Normocephalic. EYES: Pupils equal and round. No scleral icterus. No injection or drainage. ENT: No nasal bleeding or discharge. Mucous membranes pink and moist. NECK: Trachea midline. No JVD. Supple. CARDIOVASCULAR: Regular rate and rhythm. No murmur appreciated. RESPIRATORY: No accessory muscle use. Clear to auscultation. Breath sounds equal bilaterally. GASTROINTESTINAL: Abdomen soft, non-tender, nondistended. Hepatic and splenic margins not palpable. MUSCULOSKELETAL: No obvious deformities. No clubbing. No cyanosis. No edema. NEUROLOGICAL: Awake and alert. No obvious cranial nerve deficits. Motor grossly within normal limits. Normal speech. PSYCHIATRIC: Appropriate mood and affect; insight and judgment normal. Data Data Last Documented VS Vital Signs Date Time Temp Pulse Resp B/P (MAP) Pulse Ox O2 Delivery O2 Flow Rate FiO2 05/19/17 07:59 71 18 181/80 (113) 98 05/19/17 06:44 Room Air 05/19/17 06:[address] Brain W/O Iv Contrast(Rout) (05/19/17 ) Acetaminophen (Tylenol) (05/19/17 07:00) Blood Culture (05/19/17 06:51) Complete Blood Count With Diff (05/19/17 06:51) Basic Metabolic Panel (Bmp) (05/19/17 06:51) Prothrombin Time / Inr (Pt) (05/19/17 06:51) Act Partial Throm Time (Ptt) (05/19/17 06:51) Lactic Acid Sepsis Protocol (05/19/17 06:51) Urinalysis - C+S If Indicated (05/19/17 06:51) Chest, Single Ap (05/19/17 ) Electrocardiogram (05/19/17 ) Troponin I (05/19/17 06:51) Influenzae A/B Antigen (05/19/17 07:06) Urine Culture (05/19/17 07:15) Piperacil-Tazo 4.5 Gm Premix (Zosyn 4.5 (05/19/17 08:16) Labs Laboratory Tests Test 05/19/17 07:15 05/19/17 07:25 Urine Color YELLOW Urine Turbidity HAZY Urine pH 6.0 Urine Specific [place] 1.013 Urine Protein 100 mg/dL Urine Glucose (UA) NEG mg/dL Urine Ketones 40 mg/dL Urine Occult Blood MOD Urine Nitrite POS Urine Bilirubin NEG Urine Urobilinogen 4.0 MG/DL Urine Leukocyte Esterase LARGE Urine RBC 8 /hpf Urine WBC 90 /hpf Urine WBC Clumps MOD Urine Squamous Epithelial Cells <1 /hpf Urine Bacteria MANY /hpf Urine Mucus FEW /lpf Microscopic Urinalysis Comment CULTURE INDICATED White Blood Count 13.5 TH/MM3 Red Blood Count 4.12 MIL/MM3 Hemoglobin 11.1 GM/DL Hematocrit 33.5 % Mean Corpuscular Volume 81.3 FL Mean Corpuscular Hemoglobin 27.0 PG Mean Corpuscular Hemoglobin Concent 33.2 % Red Cell Distribution Width 16.9 % Platelet Count 35 TH/MM3 Mean Platelet Volume 12.7 FL Neutrophils (%) (Auto) 43.8 % Lymphocytes (%) (Auto) 15.2 % Monocytes (%) (Auto) 40.8 % Eosinophils (%) (Auto) 0.0 % Basophils (%) (Auto) 0.2 % Neutrophils # (Auto) 5.9 TH/MM3 Lymphocytes # (Auto) 2.1 TH/MM3 Monocytes # (Auto) 5.5 TH/MM3 Eosinophils # (Auto) 0.0 TH/MM3 Basophils # (Auto) 0.0 TH/MM3 CBC Comment AUTO DIFF Prothrombin Time 12.5 SEC Prothromb Time International Ratio 1.2 RATIO Activated Partial Thromboplast Time 28.5 SEC Blood Urea Nitrogen 16 MG/DL Creatinine 0.92 MG/DL Random Glucose 107 MG/DL Calcium Level 8.8 MG/DL Sodium Level 136 MEQ/L Potassium Level 3.8 MEQ/L Chloride Level 103 MEQ/L Carbon Dioxide Level 23.8 MEQ/L Anion Gap 9 MEQ/L Estimat Glomerular Filtration Rate 60 ML/MIN Lactic Acid Level 1.2 mmol/L Troponin I LESS THAN 0.02 NG/ML MDM Medical Decision Making Medical Screen Exam Complete: Yes Emergency Medical Condition: Yes Medical Record Reviewed: Yes Interpretation(s) EKG shows NSR, no ST elevation or depression, and no arrhythmias. No significant T-wave inversions. Laboratory Tests Test 05/19/17 07:15 05/19/17 07:25 Urine Turbidity HAZY (CLEAR) Urine Protein 100 mg/dL (NEG-TRACE) Urine Ketones 40 mg/dL (NEG) Urine Occult Blood MOD (NEG) Urine Nitrite POS (NEG) Urine Urobilinogen 4.0 MG/DL (LESS THAN Urine Leukocyte Esterase LARGE (NEG) Urine RBC 8 /hpf (0-3) Urine WBC 90 /hpf (0-5) Urine WBC Clumps MOD (NONE) Urine Bacteria MANY /hpf (NONE) Urine Mucus FEW /lpf (OCC) Prothrombin Time 12.5 SEC (9.8-11.6) Random Glucose 107 MG/DL (74-106) Estimat Glomerular Filtration Rate 60 ML/MIN (>89) Troponin I LESS THAN 0.02 NG/ML Last 24 hours Impressions Chest X-Ray 05/19/17 0000 Signed Impressions: Service Date/Time: May 07:01 - CONCLUSION: No acute disease. Shaw Bailey MD Differential Diagnosis Fevers, altered mental status: Sepsis versus pneumonia versus UTI versus dehydration versus metabolic issues versus influenza versus virus syndrome Narrative Course Chest x-ray Scan once otherwise unremarkable. She is not febrile. Influenza test as negative. Lab work shows UTI. IV antibiotics were initially given in the ER after cultures were drawn. At this point, vital signs are fairly stable. Patient had also been given Tylenol. My plan would be to release her back to nursing care facility in having her follow-up with primary care physician there. Return for any worsening in fevers, disorientation, symptoms as needed. The plan has been discussed with patient in caregiver and they state understanding. Diagnosis Primary Impression: UTI (urinary tract infection) Med/Other Pt SpecificInfo: Prescription(s) given Scripts Nitrofurantoin Monohydrate Macrocrystals (Macrobid) 100 Mg Cap 100 MG PO BID for Infection for 7 Days, #14 CAP 0 Refills Prov: Sharmila Multani MD 05/19/17 Disposition: 03 DISCHARGE TO SNF Condition: Stable Sharmila Multani MD May 19, 2017 07:21
[2017-05-19 07:47] LABS: AUTOMATED NEUTROPHIL # 5.9 TH/MM3 (1.8-7.7); BASOPHIL % 0.2 % (0.0-2.0); HEMATOCRIT 33.5 % (35.0-46.0); HEMOGLOBIN 11.1 GM/DL (11.6-15.3); INTERNATIONAL NORMALIZED RATIO 1.2 RATIO; LYMPH % 15.2 % (9.0-44.0); LYMPHOCYTE # 2.1 TH/MM3 (1.0-4.8); MEAN CELL VOLUME 81.3 FL (80.0-100.0); MEAN CORPUSCULAR HGB CONC 33.2 % (32.0-36.0); MEAN PLATELET VOLUME 12.7 FL (7.0-11.0); MONO % 40.8 % (0.0-8.0); MONOCYTE # 5.5 TH/MM3 (0-0.9); NEUT % 43.8 % (16.0-70.0); PLATELET COUNT 35 TH/MM3 (150-450); PROTHROMBIN TIME - PATIENT 12.5 SEC (9.8-11.6); RED BLOOD COUNT 4.12 MIL/MM3 (4.00-5.30); RED CELL DISTRIBUTION WIDTH 16.9 % (11.6-17.2); WHITE BLOOD COUNT 13.5 TH/MM3 (4.0-11.0)
[2017-05-19 07:56] LABS: BICARBONATE 23.8 MEQ/L (21.0-32.0); BLOOD UREA NITROGEN 16 MG/DL (7-18); CALCIUM 8.8 MG/DL (8.5-10.1); CHLORIDE 103 MEQ/L (98-107); CREATININE 0.92 MG/DL (0.50-1.00); GLOMERULAR FILTRATION RATE 60 ML/MIN (>89); GLUCOSE,RANDOM 107 MG/DL (74-106); SODIUM (NA) 136 MEQ/L (136-145)
[2017-05-19 07:59] VITALS: BP 181/80; PULSE 71; RESP 18; O2SAT 98
[2017-05-19 08:00] LABS: TROPONIN I LESS THAN 0.02 NG/ML (0.02-0.05)
[2017-05-19 08:06] LABS: BACTERIA, URINE MANY /hpf; BILIRUBIN, URINE NEG (NEG); BLOOD, URINE MOD (NEG); GLUCOSE,URINE NEG (NEG); KETONE, URINE 40 mg/dL (NEG); MUCUS URINE FEW /lpf (OCC); NITRITE,URINE POS (NEG); SQUAMOUS EPITHELIAL CELL URINE <1 /hpf (0-5); URINE COLOR YELLOW (YELLW/STRAW); URINE LEUKOCYTE ESTERASE LARGE (NEG); WHITE BLOOD CELL CLUMPS MOD
--- NOTE | 2017-05-19 08:09 | RADRPT ---
EXAM DATE/TIME: 05/19/2017 07:41 [facility] COMPARISON: CT BRAIN W/O CONTRAST, February 21, 2017, 5:26. INDICATIONS : Increasing weakness and altered mental status. RADIATION DOSE: 56.35 CTDIvol (mGy) MEDICAL HISTORY : Dementia. Hypertension. Cerebrovascular disease. SURGICAL HISTORY : None. ENCOUNTER: Initial ACUITY: 1 day PAIN SCALE: Non-responsive LOCATION: cranial TECHNIQUE: Multiple contiguous axial images were obtained of the head. Using automated exposure control and adj ustment of the mA and/or kV according to patient size, radiation dose was kept as low as reasonably a chievable to obtain optimal diagnostic quality images. DICOM format image data is available electro nically for review and comparison. FINDINGS: CEREBRUM: There is moderate generalized atrophy. Ventricles are normal in size. There is severe periventricular white matter low attenuation, stable from the prior study. No evidence of midline shift, mass lesio n, hemorrhage or acute infarction. No extra-axial fluid collections are seen. POSTERIOR FOSSA: The cerebellum and brainstem demonstrate no acute finding. The 4th ventricle is midline. The cerebe llopontine angle is unremarkable. EXTRACRANIAL: There is stable mild mucoperiosteal thickening within the left maxillary antrum. SKULL: There is stable focal thickening of the calvarium in the left parietal region. CONCLUSION: 1. Stable noncontrast head CT without an acute intracranial abnormality identified. 2. Stable severe chronic periventricular white matter change characteristic of chronic microvascular ischemia. Colt Blanchard MD on May 19, 2017 at 8:03 Board Certified Radiologist. This report was verified electronically.
[2017-05-19] MEDS ORDERED: PIPERACIL-TAZO 4.5 GM PREMIX 100 ML IV STA (08:16)
[2017-05-19 08:36] LABS: BANDS 6 % (0-6); LYMPHOCYTES 24 % (9-44); MONOCYTES 25 % (0-8); NEUTROPHIL # MANUAL DIFF 6.9 TH/MM3 (1.8-7.7); POLYS (SEG NEUTROPHILS) 45 % (16-70)
[2017-05-19] MEDS ORDERED: MACR100C2 PO (08:37)
--- NOTE | 2017-05-19 21:54 | EKG ---
Date Performed: 05/19/2017 Time Performed: 07:45:54 PTAGE: 72 years EKG: Sinus rhythm WITH OCCASIONAL SUPRAVENTRICULAR PREMATURE COMPLEXES NONSPECIFIC ST & T-WAVE ABNORMALITY BORDERLINE ECG NO PREVIOUS TRACING DOCTOR: Long Howe Interpretating Date/Time 05/19/2017 21:53:42
== END 2017-05-19 10:34 ==
LOC: NEPE 06:34
DX: N39.0 Urinary tract infection, site not specified (principal); R94.31 Abnormal electrocardiogram [ECG] [EKG]; B96.20 Unspecified Escherichia coli [E. coli] as the cause of diseases classified elsewhere; E78.00 Pure hypercholesterolemia, unspecified; F03.90 Unspecified dementia, unspecified severity, without behavioral disturbance, psychotic disturbance, mood disturbance, and anxiety; I25.10 Atherosclerotic heart disease of native coronary artery without angina pectoris; I10 Essential (primary) hypertension; Z88.5 Allergy status to narcotic agent; J44.9 Chronic obstructive pulmonary disease, unspecified
CPT/HCPCS: 70450; 71045; 80048; 81001; 83605; 84484; 85007; 85027; 85610; 85730; 87040; 87077; 87086; 87186; 87804; 93005; 96365; 99285; J2543

== ENCOUNTER 2017-08-11 17:34 | Inpatient (IN) | payer MEDICARE, OTHER ==
[~2017-08-11] VITALS: Ht 172.7 cm; Wt 64.5 kg
[~2017-08-11 17:34] MED LIST changes: +ACET325C; +ARAN200I2 SQ; +BISA10SU3 RECTAL; +CENTCHW4 CHEW; +ESCI20TA PO; +FERR325T18 PO; +LOPE2CAP PO; +LORA1TAB12 PO; +MACR100C2 PO; +METO50TA PO; +ONDA4TAB15; +POLY17S PO; +VITA500T83 PO
[2017-08-11 18:00] VITALS: BP 114/58; PULSE 48; PULSE 55; RESP 16; RESP 18; TEMP 97.2; O2SAT 96
--- NOTE | 2017-08-11 19:13 | PD ---
HPI Chief Complaint: Abnormal Results Time Seen by Provider: 19:05 Travel History International Travel<30 days: No Contact w/Intl Traveler<30days: No Traveled to known affect area: No History of Present Illness HPI 72 yo F arrives by EMS from [facility] dementia, christian, cad, htn, copd, anemia arrives 2/2 hyperkalemia with renal insufficiency of unknown acuity. pt denies pain. pt denies shortness of breath and fever. pt reports feeling dizzy and vomiting. history is otherwise limited to SNF records. Blood work was obtained earlier today. PFSH Past Medical History Anemia: Yes Cardiovascular Problems: Yes (AHD) High Cholesterol: Yes COPD: Yes Cerebrovascular Accident: Yes Coronary Artery Disease: Yes Dementia: Yes Gastrointestinal Disorders: Yes (CONSTIPATION) Hypertension: Yes Medical other: Yes (HX FALLING) Musculoskeletal: Yes (HEMIPLEGIA) Neurologic: No Immunizations Current: Yes Influenza Vaccination: Yes ?: Not Past Surgical History Other Surgery: No Social History Alcohol Use: No Tobacco Use: No Substance Use: No Allergies-Medications (Allergen,Severity, Reaction): Coded Allergies: codeine (Verified Allergy, Unknown, 05/19/17) Reported Meds & Prescriptions Reported Meds & Active Scripts Active Macrobid (Nitrofurantoin Monoh/Nitrofur Macro) 100 Mg Cap 100 Mg PO BID 7 Days [place] (Hydrocodone-Acetaminophen) 7.5-325 mg Tab 1 Tab PO Q4H PRN Walker/Adult/Folding (Device) 1 Mis Mis Ea .ROUTE DIRECTED Reported Loperamide (Loperamide HCl) 2 Mg Cap 2 Mg PO DIRECTED PRN One capsule after each loose stool. Not to exceed 8 capsules per day. Bisacodyl Supp (Bisacodyl) 10 Mg Supp 10 Mg RECTAL DAILY PRN Acetaminophen 325 Mg Capsule Aranesp (Albumin Free) Inj (Darbepoetin Brock Inj) 200 Mcg/0.4 Ml Inj 200 Mcg SQ Q7D Anoro Ellipta Inh (Umeclidinium/Vilanterol) 62.5-25 Mcg/Act Aero 1 Puff INH DAILY Lorazepam 1 Mg Tab 1 Mg PO Q6H PRN Centrum (Multiple Vitamins W/ Minerals) 1 Chew 1 Tab CHEW DAILY Metoprolol Tartrate 50 Mg Tab 50 Mg PO BID Ferrous Sulfate 325 Mg (65 Mg Iron) Tablet 325 Mg PO BIDPC Escitalopram (Escitalopram Oxalate) 20 Mg Tab 20 Mg PO DAILY Vitamin C ER (Ascorbic Acid) 500 Mg Marcello 500 Mg PO Polyethylene Glycol 3350 Powder (Polyethylene Glycol) 17 Gram Pow 17 Gm PO DAILY Ondansetron (Ondansetron HCl) 4 Mg Tab Anoro Ellipta Inh (Umeclidinium/Vilanterol) 62.5-25 Mcg/Act Aero 1 Puff INH DAILY Pravastatin 40 Mg Tab 40 Mg PO DAILY Omeprazole 20 Mg Tab 20 Mg PO DAILY Metoprolol Tartrate 25 Mg Tab 25 Mg PO DAILY Lisinopril 40 Mg Tab 40 Mg PO DAILY Flovent Hfa 10.6 GM Inh (Fluticasone Propionate) 44 Mcg/Act Inh 2 Puff INH BID Use daily at the same time. Duloxetine DR (Duloxetine HCl) 20 Mg Capdr 20 Mg PO DAILY Clopidogrel (Clopidogrel Bisulfate) 75 Mg Tab 75 Mg PO DAILY Aspirin 81 Mg Chew 81 Mg CHEW DAILY Amlodipine (Amlodipine Besylate) 10 Mg Tab 10 Mg PO DAILY Fosamax (Alendronate Sodium) 70 Mg Tab 70 Mg PO Q7D Review of Systems ROS Limitations: Clinical Condition Physical Exam Narrative GENERAL: 72 yo F, WNWD, mild distress Vital Signs Date Time Temp Pulse Resp B/P (MAP) Pulse Ox O2 Delivery O2 Flow Rate FiO2 08/11/17 18:45 96 Room Air 08/11/17 18:00 97.2 55 18 114/58 (76) 96 SKIN: Warm and dry. HEAD: Atraumatic. Normocephalic. EYES: Pupils equal and round. No scleral icterus. No injection or drainage. ENT: No nasal bleeding or discharge. Mucous membranes pink and moist. NECK: Trachea midline. No JVD. CARDIOVASCULAR: Regular. Rate about 50. RESPIRATORY: Frequent cough. Rate about 20bpm. Wheezing bilaterally. GASTROINTESTINAL: Abdomen soft, non-tender, nondistended. Hepatic and splenic margins not palpable. MUSCULOSKELETAL: Extremities without clubbing, cyanosis, or edema. No obvious deformities. NEUROLOGICAL: Non-verbal. Eyes open. Moves extremities occasionally. PSYCHIATRIC: Unable to assess. Data Data Last Documented VS Vital Signs Date Time Temp Pulse Resp B/P (MAP) Pulse Ox O2 Delivery O2 Flow Rate FiO2 08/11/17 18:45 96 Room Air 08/11/17 18:00 97.2 48 16 114/58 (76) Orders Orders Electrocardiogram (4/12/18 19:05) Complete Blood Count With Diff (08/11/17 19:05) Comprehensive Metabolic Panel (08/11/17 19:05) Creatine Kinase (Cpk) (08/11/17 19:05) Prothrombin Time / Inr (Pt) (08/11/17 19:05) Act Partial Throm Time (Ptt) (08/11/17 19:05) Urinalysis - C+S If Indicated (08/11/17 19:05) Blood Glucose (08/11/17 19:05) Ecg Monitoring (08/11/17 19:05) Iv Access Insert/Monitor (08/11/17 19:05) Oximetry (08/11/17 19:05) Sodium Chloride 0.9% Flush (Ns Flush) (08/11/17 19:15) Potassium, Serum (K) (08/11/17 22:05) Calcium Gluconate Inj (Calcium Gluconate (08/11/17 19:15) Insulin Human Regular Inj (Novolin R Inj (08/11/17 19:15) Dextrose 50% In [place] (Vial) Inj (D50w (Vi (08/11/17 19:15) Sodium Bicarbonate 8.4% Inj (Sodium Bica (08/11/17 19:15) Albuterol Neb (Albuterol Neb) (08/11/17 19:45) ^ Straight Catheter (08/11/17 20:13) Urinary Catheter Insert/Apply (08/11/17 20:31) Admit Order (Ed Use Only) (08/11/17 ) Bait Packer / Telemetry HARPER.Q8H (08/11/17 20:32) Vital Signs (Adult) Q4H (08/11/17 20:32) Diet Heart Healthy (08/12/17 Breakfast) Activity Bed Rest (08/11/17 20:32) Labs Laboratory Tests Test 08/11/17 19:30 White Blood Count 10.9 TH/MM3 Red Blood Count 3.79 MIL/MM3 Hemoglobin 9.7 GM/DL Hematocrit 29.9 % Mean Corpuscular Volume 78.8 FL Mean Corpuscular Hemoglobin 25.6 PG Mean Corpuscular Hemoglobin Concent 32.5 % Red Cell Distribution Width 19.1 % Platelet Count 125 TH/MM3 Mean Platelet Volume 11.6 FL Neutrophils (%) (Auto) 53.7 % Lymphocytes (%) (Auto) 28.6 % Monocytes (%) (Auto) 17.2 % Eosinophils (%) (Auto) 0.2 % Basophils (%) (Auto) 0.3 % Neutrophils # (Auto) 5.8 TH/MM3 Lymphocytes # (Auto) 3.1 TH/MM3 Monocytes # (Auto) 1.9 TH/MM3 Eosinophils # (Auto) 0.0 TH/MM3 Basophils # (Auto) 0.0 TH/MM3 CBC Comment DIFF FINAL Differential Comment Prothrombin Time 12.0 SEC Prothromb Time International Ratio 1.2 RATIO Activated Partial Thromboplast Time 26.1 SEC Blood Urea Nitrogen 64 MG/DL Creatinine 2.82 MG/DL Random Glucose 100 MG/DL Total Protein 9.5 GM/DL Albumin 3.1 GM/DL Calcium Level 9.6 MG/DL Alkaline Phosphatase 139 U/L Aspartate Amino Transf (AST/SGOT) 20 U/L Alanine Aminotransferase (ALT/SGPT) 15 U/L Total Bilirubin 0.5 MG/DL Sodium Level 136 MEQ/L Potassium Level 7.0 MEQ/L Chloride Level 109 MEQ/L Carbon Dioxide Level 17.6 MEQ/L Anion Gap 9 MEQ/L Estimat Glomerular Filtration Rate 17 ML/MIN Total Creatine Kinase 133 U/L MDM Medical Decision Making Medical Screen Exam Complete: Yes Emergency Medical Condition: Yes Medical Record Reviewed: Yes Differential Diagnosis acute renal failure, chronic renal failure, anemia, electrolyte imbalance Narrative Course CBC & BMP Diagram 08/11/17 19:30 Total Protein 9.5 H, Albumin 3.1 L, Calcium Level 9.6 #, Alkaline Phosphatase 139 H, Aspartate Amino Transf (AST/SGOT) 20, Alanine Aminotransferase (ALT/SGPT ) 15, Total Bilirubin 0.5 Anion gap 9 Pt will be admitted for treatment and monitoring of hyperkalemia. insulin/dextrose, bicarb, calcium given albuterol nebs x 2 given Med/surg floor with telemetry considered appropriate level of care d/w Dr Rinaldi for [facility] Critical Care Narrative Aggregate critical care time was 35 minutes. Time to perform other separately billable procedures was not included in the critical care time. My time did not include minutes spent treating any other patients simultaneously or on activities that did not directly contribute to the patient's treatment. The services I provided to this patient were to treat and/or prevent clinically significant deterioration that could result in: arrhythmia, cardiopulmonary arrest I provided critical care services requiring my management, as noted below: Chart data review, documentation time, medication orders and management, vital sign assessments/reviewing monitor data, ordering and reviewing lab tests, ordering and interpreting/reviewing x-rays and diagnostic studies, care of the patient and discussion of the patient with the admitting physicians. Diagnosis Primary Impression: Hyperkalemia Additional Impression: Acute renal insufficiency Admitting Information Admitting Physician Requests: Admit Tyler Quintero MD Aug 11, 2017 19:13
[2017-08-11] MEDS ORDERED: SODIUM CHLORIDE 0.9% FLUSH 10 ML FLUSH IV FLUSH PRN ×2 (19:15→21:45)
[2017-08-11] MEDS ORDERED: CALCIUM GLUCONATE 10% 1 GM/10 ML VIAL SLOW IVP ONE (19:15)
[2017-08-11] MEDS ORDERED: DEXTROSE 50% IN WATER 50 ML VIAL(D50) IV PUSH ONE (19:15)
[2017-08-11] MEDS ORDERED: SODIUM BICARBONATE 8.4% SOLN 50 MEQ/50 ML VIAL SLOW IVP ONE (19:15)
[2017-08-11] MEDS ORDERED: INSULIN HUMAN REGULAR 1,000 UNITS/10 ML VIAL IV PUSH ONE (19:15)
[2017-08-11 19:48] LABS: AUTOMATED NEUTROPHIL # 5.8 TH/MM3 (1.8-7.7); BASOPHIL % 0.3 % (0.0-2.0); EOSINOPHIL % 0.2 % (0.0-4.0); HEMATOCRIT 29.9 % (35.0-46.0); HEMOGLOBIN 9.7 GM/DL (11.6-15.3); LYMPH % 28.6 % (9.0-44.0); LYMPHOCYTE # 3.1 TH/MM3 (1.0-4.8); MEAN CELL VOLUME 78.8 FL (80.0-100.0); MEAN CORPUSCULAR HEMOGLOBIN 25.6 PG (27.0-34.0); MEAN CORPUSCULAR HGB CONC 32.5 % (32.0-36.0); MEAN PLATELET VOLUME 11.6 FL (7.0-11.0); MONO % 17.2 % (0.0-8.0); MONOCYTE # 1.9 TH/MM3 (0-0.9); NEUT % 53.7 % (16.0-70.0); PLATELET COUNT 125 TH/MM3 (150-450); RED BLOOD COUNT 3.79 MIL/MM3 (4.00-5.30); RED CELL DISTRIBUTION WIDTH 19.1 % (11.6-17.2); WHITE BLOOD COUNT 10.9 TH/MM3 (4.0-11.0)
[2017-08-11] MEDS: RESP: ALBUTEROL 2.5 MG/3 ML NEB (SCH) INH ×2 (20:00→20:15)
[2017-08-11 20:04] LABS: INTERNATIONAL NORMALIZED RATIO 1.2 RATIO
[2017-08-11 20:16] LABS: ALBUMIN 3.1 GM/DL (3.4-5.0); ALKALINE PHOSPHATASE 139 U/L (45-117); ALT (GPT) 15 U/L (10-53); AST (GOT) 20 U/L (15-37); BICARBONATE 17.6 MEQ/L (21.0-32.0); BLOOD UREA NITROGEN 64 MG/DL (7-18); CALCIUM 9.6 MG/DL (8.5-10.1); CHLORIDE 109 MEQ/L (98-107); CREATININE 2.82 MG/DL (0.50-1.00); GLOMERULAR FILTRATION RATE 17 ML/MIN (>89); GLUCOSE,RANDOM 100 MG/DL (74-106); SODIUM (NA) 136 MEQ/L (136-145); TOTAL BILIRUBIN ADULT 0.5 MG/DL (0.2-1.0); TOTAL PROTEIN 9.5 GM/DL (6.4-8.2)
--- NOTE | 2017-08-11 21:44 | HHI.HP ---
HPI Service [facility] Primary Care Physician Unknown Admission Diagnosis ARF; HyperK Diagnoses: Travel History International Travel<30 Days: No Contact w/Intl Traveler <30 Da: No Traveled to Known Affected Are: No History of Present Illness 72-year-old female with a past medical history significant for dementia, hyperlipidemia, depression, hemiplegia status post CVA, COPD, CAD and hypertension resents to the emergency department from her assisted living facility for the evaluation of abnormal labs. The patient denies any chest pain or shortness of breath. She does report feeling dizzy and having intermittent emesis although she cannot specify length of time. Lab velasco significant for a potassium of 7.0 with acute kidney injury. Review of Systems ROS Limitations: Clinical Condition Except as stated in HPI: all other systems reviewed are Neg Past Family Social History Past Medical History dementia, hyperlipidemia, depression, hemiplegia status post CVA, COPD, CAD and hypertension Past Surgical History Stent placement 3 Reported Medications Reported Meds & Active Scripts Active Macrobid (Nitrofurantoin Monoh/Nitrofur Macro) 100 Mg Cap 100 Mg PO BID 7 Days Valier (Hydrocodone-Acetaminophen) 7.5-325 mg Tab 1 Tab PO Q4H PRN Walker/Adult/Folding (Device) 1 Mis Mis Ea .ROUTE DIRECTED Reported Loperamide (Loperamide HCl) 2 Mg Cap 2 Mg PO DIRECTED PRN One capsule after each loose stool. Not to exceed 8 capsules per day. Bisacodyl Supp (Bisacodyl) 10 Mg Supp 10 Mg RECTAL DAILY PRN Acetaminophen 325 Mg Capsule Aranesp (Albumin Free) Inj (Darbepoetin Brock Inj) 200 Mcg/0.4 Ml Inj 200 Mcg SQ Q7D Anoro Ellipta Inh (Umeclidinium/Vilanterol) 62.5-25 Mcg/Act Aero 1 Puff INH DAILY Lorazepam 1 Mg Tab 1 Mg PO Q6H PRN Centrum (Multiple Vitamins W/ Minerals) 1 Chew 1 Tab CHEW DAILY Metoprolol Tartrate 50 Mg Tab 50 Mg PO BID Ferrous Sulfate 325 Mg (65 Mg Iron) Tablet 325 Mg PO BIDPC Escitalopram (Escitalopram Oxalate) 20 Mg Tab 20 Mg PO DAILY Vitamin C ER (Ascorbic Acid) 500 Mg Marcello 500 Mg PO Polyethylene Glycol 3350 Powder (Polyethylene Glycol) 17 Gram Pow 17 Gm PO DAILY Ondansetron (Ondansetron HCl) 4 Mg Tab Anoro Ellipta Inh (Umeclidinium/Vilanterol) 62.5-25 Mcg/Act Aero 1 Puff INH DAILY Pravastatin 40 Mg Tab 40 Mg PO DAILY Omeprazole 20 Mg Tab 20 Mg PO DAILY Metoprolol Tartrate 25 Mg Tab 25 Mg PO DAILY Lisinopril 40 Mg Tab 40 Mg PO DAILY Flovent Hfa 10.6 GM Inh (Fluticasone Propionate) 44 Mcg/Act Inh 2 Puff INH BID Use daily at the same time. Duloxetine DR (Duloxetine HCl) 20 Mg Capdr 20 Mg PO DAILY Clopidogrel (Clopidogrel Bisulfate) 75 Mg Tab 75 Mg PO DAILY Aspirin 81 Mg Chew 81 Mg CHEW DAILY Amlodipine (Amlodipine Besylate) 10 Mg Tab 10 Mg PO DAILY Fosamax (Alendronate Sodium) 70 Mg Tab 70 Mg PO Q7D Allergies: Coded Allergies: codeine (Verified Allergy, Unknown, 05/19/17) Family History Cardiovascular disease and stroke Social History 1 ppd cigarettes for over 47 years. Denies any alcohol use. Denies any illicit drug use. Physical Exam Vital Signs Vital Signs Date Time Temp Pulse Resp B/P (MAP) Pulse Ox O2 Delivery O2 Flow Rate FiO2 08/11/17 18:45 96 Room Air 08/11/17 18:00 97.2 48 16 114/58 (76) 96 08/11/17 18:00 97.2 55 18 114/58 (76) 96 Physical Exam GENERAL: female lying in bed SKIN: No rashes, ecchymoses or lesions. Cool and dry. HEAD: Atraumatic. Normocephalic. No temporal or scalp tenderness. EYES: Pupils equal round and reactive. Extraocular motions intact. No scleral icterus. No injection or drainage. ENT: Nose without bleeding, purulent drainage or septal hematoma. Throat without erythema, tonsillar hypertrophy or exudate. Uvula midline. Airway patent. NECK: Trachea midline. No JVD or lymphadenopathy. Supple, nontender, no meningeal signs. CARDIOVASCULAR: Regular rate and rhythm without murmurs, gallops, or rubs. RESPIRATORY: Clear to auscultation. Breath sounds equal bilaterally. No wheezes , rales, or rhonchi. GASTROINTESTINAL: Abdomen soft, non-tender, nondistended. No hepato-splenomegaly , or palpable masses. No guarding. MUSCULOSKELETAL: Extremities without clubbing, cyanosis, or edema. No joint tenderness, effusion, or edema noted. No calf tenderness. NEUROLOGICAL: Awake and alert. Cranial nerves II through XII intact. Motor and sensory grossly within normal limits. Laboratory Laboratory Tests Test 08/11/17 19:30 White Blood Count 10.9 Red Blood Count 3.79 Hemoglobin 9.7 Hematocrit 29.9 Mean Corpuscular Volume 78.8 Mean Corpuscular Hemoglobin 25.6 Mean Corpuscular Hemoglobin Concent 32.5 Red Cell Distribution Width 19.1 Platelet Count 125 Mean Platelet Volume 11.6 Neutrophils (%) (Auto) 53.7 Lymphocytes (%) (Auto) 28.6 Monocytes (%) (Auto) 17.2 Eosinophils (%) (Auto) 0.2 Basophils (%) (Auto) 0.3 Neutrophils # (Auto) 5.8 Lymphocytes # (Auto) 3.1 Monocytes # (Auto) 1.9 Eosinophils # (Auto) 0.0 Basophils # (Auto) 0.0 CBC Comment DIFF FINAL Differential Comment Prothrombin Time 12.0 Prothromb Time International Ratio 1.2 Activated Partial Thromboplast Time 26.1 Blood Urea Nitrogen 64 Creatinine 2.82 Random Glucose 100 Total Protein 9.5 Albumin 3.1 Calcium Level 9.6 Alkaline Phosphatase 139 Aspartate Amino Transf (AST/SGOT) 20 Alanine Aminotransferase (ALT/SGPT) 15 Total Bilirubin 0.5 Sodium Level 136 Potassium Level 7.0 Chloride Level 109 Carbon Dioxide Level 17.6 Anion Gap 9 Estimat Glomerular Filtration Rate 17 Total Creatine Kinase 133 Result Diagram: 08/11/17192908/11/171929 Caprini VTE Risk Assessment Caprini VTE Risk Assessment: Mod/High Risk (score >= 2) Caprini Risk Assessment Model Point Value = 1 Point Value = 2 Point Value = 3 Point Value = 5 Age 41-60 Minor surgery BMI > 25 kg/m2 Swollen legs Varicose veins or History of unexplained or recurrent spontaneous Oral contraceptives or hormone replacement Sepsis (< 1 month) Serious lung disease, including pneumonia (< 1 month) Abnormal pulmonary function Acute myocardial infarction Congestive heart failure (< 1 month) History of inflammatory bowel disease Medical patient at bed rest Age 61-74 Arthroscopic surgery Major open surgery (> 45 min) Laparoscopic surgery (> 45 min) Malignancy Confined to bed (> 72 hours) Immobilizing plaster cast Central venous access Age >= 75 History of VTE Family history of VTE Factor V Leiden Prothrombin [id number] Lupus anticoagulant Anticardiolipin antibodies Elevated serum homocysteine Heparin-induced thrombocytopenia Other congenital or acquired thrombophilia Stroke (< 1 month) Elective arthroplasty Hip, pelvis, or leg fracture Acute spinal cord injury (< 1 month) Prophylaxis Regimen Total Risk Factor Score Risk Level Prophylaxis Regimen 0-1 Low Early ambulation 2 Moderate Order ONE of the following: *Sequential Compression Device (SCD) *Heparin 5000 units SQ BID 3-4 Higher Order ONE of the following medications: *Heparin 5000 units SQ TID *Enoxaparin/Lovenox 40 mg SQ daily (WT < 150 kg, CrCl > 30 mL/min) *Enoxaparin/Lovenox 30 mg SQ daily (WT < 150 kg, CrCl > 10-29 mL/min) *Enoxaparin/Lovenox 30 mg SQ BID (WT < 150 kg, CrCl > 30 mL/min) AND/OR *Sequential Compression Device (SCD) 5 or more Highest Order ONE of the following medications: *Heparin 5000 units SQ TID (Preferred with Epidurals) *Enoxaparin/Lovenox 40 mg SQ daily (WT < 150 kg, CrCl > 30 mL/min) *Enoxaparin/Lovenox 30 mg SQ daily (WT < 150 kg, CrCl > 10-29 mL/min) *Enoxaparin/Lovenox 30 mg SQ BID (WT < 150 kg, CrCl > 30 mL/min) AND *Sequential Compression Device (SCD) Assessment and Plan Assessment and Plan Assessment/plan: 1. Hyperkalemia Potassium 7.0 No EKG changes, personally reviewed Status post calcium gluconate, insulin and D50 in the ED Kayexalate Repeat serum potassium in 2 hours Telemetry 2. Acute renal failure BUN/creatinine 64/2.82, baseline 0.9 Renal ultrasound pending IV fluid hydration Monitor renal function If renal function does not improve, consider nephrology consult 5. COPD/CAD/hypertension/hyperlipidemia/dementia Continue home medications FEN Renal diet Electrolytes: as above Heparin NS at 100 cc/hr Physician Certification 2 Midnight Certification Type: Admission for Inpatient Services Order for Inpatient Services The services are ordered in accordance with Medicare regulations or non- Medicare payer requirements, as applicable. In the case of services not specified as inpatient-only, they are appropriately provided as inpatient services in accordance with the 2-midnight benchmark. Estimated LOS (days): 2 2 days is the estimated time the patient will need to remain in the hospital, assuming treatment plan goals are met and no additional complications. Post-Hospital Plan: Not yet determined Sheila Rinaldi MD Aug 11, 2017 21:44
[2017-08-11] MEDS ORDERED: BISACODYL 10 MG SUPP RECTAL PRN (21:45)
[2017-08-11] MEDS ORDERED: SENNOSIDES 8.6 MG TAB PO PRN (21:45)
[2017-08-11] MEDS ORDERED: MAGNESIUM HYDROXIDE SUSP 30 ML CUP PO PRN (21:45)
[2017-08-11] MEDS ORDERED: ACETAMINOPHEN 325 MG TAB PO PRN (21:45)
[2017-08-11] MEDS ORDERED: LACTULOSE SYRUP 20 GM/30 ML CUP PO PRN (21:45)
[2017-08-11] MEDS ORDERED: ONDANSETRON HCL 4 MG/2 ML VIAL IVP PRN (21:45)
[2017-08-11] MEDS ORDERED: NALOXONE HCL 0.4 MG/ML AMP IV PUSH PRN (21:45)
--- NOTE | 2017-08-11 22:38 | RADRPT ---
EXAM DATE/TIME: 08/11/2017 22:02 [place] COMPARISON: No previous studies available for comparison. INDICATIONS : Increased BUN/Creatinine. MEDICAL HISTORY : Dementia. Chronic obstructive pulmonary disease. Hypercholesterolemia. Cerebrovascular accident. Mel nary artery disease. Hypertension. Hemiplegia. Anemia. SURGICAL HISTORY : Coronary artery stent. ENCOUNTER: Initial ACUITY: 1 day PAIN SCORE: 0/10 LOCATION: Bilateral flank MEASUREMENTS: RIGHT KIDNEY: 7.5 x 4.2 x 3.7 cm LEFT KIDNEY: 13.5 x 5.5 x 5.0 cm FINDINGS: RIGHT KIDNEY: The right kidney is small and atrophic in appearance with increased echogenicity and poor corticomedu llary effusion. There is a small cyst measuring 11 x 10 x 9 mm in the upper pole. There is no solid m ass or hydronephrosis. LEFT KIDNEY: Renal cortex is normal in thickness and echotexture. No hydronephrosis, stone, or mass. BLADDER: Within normal limits given the degree of distension. CONCLUSION: 1. Small atrophic right kidney with small simple cyst. 2. Unremarkable left kidney. Torres Hernandez MD on August 11, 2017 at 22:34 Board Certified Radiologist. This report was verified electronically.
[2017-08-11] MEDS: SODIUM CHLOR 0.9% 1000 ML INJ 1,000 ML IV SCH (22:49)
[2017-08-11] MEDS: HEPARIN SODIUM - SQ 10,000 UNITS/ML VIAL SQ SCH (22:49)
[2017-08-11] MEDS ORDERED: SODIUM POLYSTYRENE SULFONATE SUSP 15 GM/60 ML CUP PO ONE (23:00)
[2017-08-11 23:18] VITALS: BP 107/59; PULSE 62; RESP 18; TEMP 97.2; O2SAT 92
[2017-08-12] VITALS (8 sets, daily range): BP systolic 109–122; BP diastolic 53–58; PULSE 54–83; RESP 17–18; TEMP 97.1–98.4; O2SAT 92–95
[2017-08-12 00:14] LABS: BACTERIA, URINE MANY /hpf; BILIRUBIN, URINE NEG (NEG); BLOOD, URINE NEG (NEG); GLUCOSE,URINE NEG (NEG); HYALINE CAST, URINE 13 /lpf (RARE); KETONE, URINE NEG (NEG); MUCUS URINE FEW /lpf (OCC); NITRITE,URINE POS (NEG); RENAL EPITHELIAL CELLS <1 /hpf; SQUAMOUS EPITHELIAL CELL URINE 1 /hpf (0-5); URINE COLOR YELLOW (YELLW/STRAW); URINE LEUKOCYTE ESTERASE LARGE (NEG)
[2017-08-12] MEDS: SODIUM CHLOR 0.9% 1000 ML INJ 1,000 ML IV SCH ×2 (07:33→17:33)
[2017-08-12 08:55] LABS: AUTOMATED NEUTROPHIL # 5.2 TH/MM3 (1.8-7.7); BASOPHIL % 0.1 % (0.0-2.0); EOSINOPHIL % 0.1 % (0.0-4.0); HEMATOCRIT 26.4 % (35.0-46.0); HEMOGLOBIN 8.8 GM/DL (11.6-15.3); LYMPH % 24.6 % (9.0-44.0); LYMPHOCYTE # 2.4 TH/MM3 (1.0-4.8); MEAN CELL VOLUME 77.9 FL (80.0-100.0); MEAN CORPUSCULAR HGB CONC 33.4 % (32.0-36.0); MEAN PLATELET VOLUME 12.3 FL (7.0-11.0); MONO % 20.6 % (0.0-8.0); NEUT % 54.6 % (16.0-70.0); PLATELET COUNT 116 TH/MM3 (150-450); RED BLOOD COUNT 3.39 MIL/MM3 (4.00-5.30); RED CELL DISTRIBUTION WIDTH 19.6 % (11.6-17.2); WHITE BLOOD COUNT 9.6 TH/MM3 (4.0-11.0)
[2017-08-12] MEDS: SODIUM CHLORIDE 0.9% FLUSH 10 ML FLUSH IV FLUSH SCH ×2 (09:00→21:00)
[2017-08-12] MEDS ORDERED: LISINOPRIL 20 MG TAB PO SCH (09:00)
[2017-08-12 09:23] LABS: BICARBONATE 20.7 MEQ/L (21.0-32.0); CALCIUM 9.8 MG/DL (8.5-10.1); CREATININE 2.57 MG/DL (0.50-1.00)
[2017-08-12] MEDS: HEPARIN SODIUM - SQ 10,000 UNITS/ML VIAL SQ SCH ×2 (11:22→21:02)
[2017-08-12] MEDS: FLUTICASONE PROPIONATE 44 MCG/ACT 10.6 GM INHALER INH SCH ×2 (11:22→21:00)
[2017-08-12] MEDS: ESCITALOPRAM OXALATE 20 MG TAB PO SCH (11:23)
[2017-08-12] MEDS: PRAVASTATIN SOD 40 MG TAB PO SCH (11:23)
[2017-08-12] MEDS: FERROUS SULFATE 325 MG (65 MG ELEMENTAL IRON) TAB PO SCH ×2 (11:23→18:33)
[2017-08-12] MEDS: CLOPIDOGREL 75 MG TAB PO SCH (11:23)
[2017-08-12] MEDS: PANTOPRAZOLE SOD 20 MG DELAYED RELEASE TAB PO SCH (11:24)
[2017-08-12] MEDS: DOCUSATE SODIUM 50 MG/SENNA 8.6 MG TAB PO SCH ×2 (11:24→21:00)
[2017-08-12] MEDS: ASPIRIN 81 MG CHEW TAB CHEW SCH (11:24)
[2017-08-12] MEDS: METOPROLOL TARTRATE 50 MG TAB PO SCH ×2 (11:24→21:00)
[2017-08-12] MEDS: UMECLIDINIUM 62.5 MCG/VILANTEROL 25 MCG INHALER INH SCH (11:25)
[2017-08-12] MEDS: DULoxetine HCl DR 20 MG CAP PO SCH (11:26)
--- NOTE | 2017-08-12 17:57 | HHI.PR ---
Subjective Remarks Patient seen earlier this afternoon. Not very talkative. Denies any pain, chest pain, shortness of breath, nausea or vomiting. She does admit to poor appetite. When asked where she is she knows she is in the hospital, however she cannot tell me the year, the [facility] or the state. When I tell her this is [place] and this is a [facility], she tells me "that is what I thought ". Objective Vitals Vital Signs Date Time Temp Pulse Resp B/P (MAP) Pulse Ox O2 Delivery O2 Flow Rate FiO2 08/12/17 12:00 97.6 66 17 113/56 (75) 94 08/12/17 08:00 98.1 70 18 117/56 (76) 93 08/12/17 06:31 97.1 60 18 114/53 (73) 92 08/12/17 00:49 98.1 83 17 115/58 (77) 94 08/11/17 18:45 96 Room Air 08/11/17 18:00 97.2 48 16 114/58 (76) 96 08/11/17 18:00 97.2 55 18 114/58 (76) 96 I/O 08/11/17 08/11/17 08/11/17 08/12/17 08/12/17 08/12/17 07:00 15:00 23:00 07:00 15:00 23:00 Intake Total 240 ml Output Total 350 ml Balance -110 ml Intake Oral 240 ml Output Urine Total 350 ml # Bowel Movements 3 Result Diagram: 08/12/17 0809 08/12/17 0809 Imaging Last Impressions Renal Ultrasound 08/11/17 0000 Signed Impressions: Service Date/Time: July 22:02 - CONCLUSION: 1. Small atrophic right kidney with small simple cyst. 2. Unremarkable left kidney. Torres Hernandez MD Objective Remarks GENERAL: female lying in bed, on her right side CARDIOVASCULAR: Regular rate and rhythm without murmurs RESPIRATORY: Clear to auscultation. Breath sounds equal bilaterally. No wheezes GASTROINTESTINAL: Abdomen soft, non-tender, nondistended. MUSCULOSKELETAL: Extremities without edema. NEUROLOGICAL: not very talkative but answers mainly w yes or no. moves lower and upper ext upon command, knows she is in the hospital but cannot states year , city or state A/P Assessment and Plan 1. Hyperkalemia Potassium 7.0 on admission but now down to 5.6. Status post calcium gluconate, insulin, Kayexalate and D50 in the ED No EKG changes, personally reviewed 2. Acute renal failure BUN/creatinine 64/2.82, baseline 0.9. Today Cr 2.57 Renal ultrasound shows small atrophic right kidney w small cyst. Unremarkable left kidney Continue IV fluid hydration Monitor renal function If renal function does not improve, consider nephrology consult 5. COPD/CAD/hypertension/hyperlipidemia/dementia Continue home medications FEN Renal diet Electrolytes: as above Heparin NS at 100 cc/hr Discharge Planning continue to monitor closely BUN/Cr levels and K levels. If worsening tomorrow, consult nephrology. Encourage po hydration Ava Monahan MD Aug 12, 2017 17:57
--- NOTE | 2017-08-12 20:46 | EKG ---
Date Performed: 08/11/2017 Time Performed: 18:19:14 PTAGE: 72 years EKG: SINUS BRADYCARDIA ST DEVIATION AND MODERATE T-WAVE ABNORMALITY, CONSIDER ANTERIOR ISCHEMIA PROFUSE NONSPECIFIC ST ABNORMALITY SIMILAR TO PRIOR TRACING. ABNORMAL ECG INTERPRETATION BASED ON Yogesh WHITEAULT AGE OF 42 YEARS PREVIOUS TRACING 05/19/17 @ 0745 DOCTOR: Jarrod Landers Interpretating Date/Time 08/12/2017 20:45:02
[2017-08-12] MEDS: cefTRIAXone INJ 1,000 MG in SODIUM CHLORIDE 0.9% INJ 100 ML IV SCH (21:00)
[2017-08-13] VITALS (9 sets, daily range): BP systolic 109–141; BP diastolic 53–64; PULSE 50–62; RESP 17–18; TEMP 97.8–98.6; O2SAT 92–95
[2017-08-13] MEDS: SODIUM CHLOR 0.9% 1000 ML INJ 1,000 ML IV SCH ×3 (02:28→23:33)
[2017-08-13 07:27] LABS: AUTOMATED NEUTROPHIL # 3.3 TH/MM3 (1.8-7.7); BASOPHIL % 0.4 % (0.0-2.0); EOSINOPHIL % 0.1 % (0.0-4.0); HEMATOCRIT 22.8 % (35.0-46.0); HEMOGLOBIN 7.5 GM/DL (11.6-15.3); LYMPH % 33.3 % (9.0-44.0); LYMPHOCYTE # 2.3 TH/MM3 (1.0-4.8); MEAN CELL VOLUME 78.6 FL (80.0-100.0); MEAN CORPUSCULAR HEMOGLOBIN 25.9 PG (27.0-34.0); MEAN CORPUSCULAR HGB CONC 32.9 % (32.0-36.0); MEAN PLATELET VOLUME 12.3 FL (7.0-11.0); MONO % 18.6 % (0.0-8.0); MONOCYTE # 1.3 TH/MM3 (0-0.9); NEUT % 47.6 % (16.0-70.0); PLATELET COUNT 101 TH/MM3 (150-450); RED BLOOD COUNT 2.89 MIL/MM3 (4.00-5.30); RED CELL DISTRIBUTION WIDTH 19.6 % (11.6-17.2); WHITE BLOOD COUNT 6.9 TH/MM3 (4.0-11.0)
[2017-08-13 07:51] LABS: BICARBONATE 18.8 MEQ/L (21.0-32.0); CALCIUM 8.6 MG/DL (8.5-10.1); CREATININE 1.77 MG/DL (0.50-1.00)
[2017-08-13] MEDS: ESCITALOPRAM OXALATE 20 MG TAB PO SCH (08:31)
[2017-08-13] MEDS: CLOPIDOGREL 75 MG TAB PO SCH (08:31)
[2017-08-13] MEDS: PANTOPRAZOLE SOD 20 MG DELAYED RELEASE TAB PO SCH (08:31)
[2017-08-13] MEDS: METOPROLOL TARTRATE 50 MG TAB PO SCH ×2 (08:31→20:58)
[2017-08-13] MEDS: DULoxetine HCl DR 20 MG CAP PO SCH (08:31)
[2017-08-13] MEDS: DOCUSATE SODIUM 50 MG/SENNA 8.6 MG TAB PO SCH ×2 (08:31→20:58)
[2017-08-13] MEDS: FERROUS SULFATE 325 MG (65 MG ELEMENTAL IRON) TAB PO SCH ×2 (08:32→19:23)
[2017-08-13] MEDS: HEPARIN SODIUM - SQ 10,000 UNITS/ML VIAL SQ SCH ×2 (08:32→20:58)
[2017-08-13] MEDS: ASPIRIN 81 MG CHEW TAB CHEW SCH (08:32)
[2017-08-13] MEDS: SODIUM CHLORIDE 0.9% FLUSH 10 ML FLUSH IV FLUSH SCH ×2 (08:32→20:59)
[2017-08-13] MEDS: PRAVASTATIN SOD 40 MG TAB PO SCH (08:32)
[2017-08-13] MEDS: UMECLIDINIUM 62.5 MCG/VILANTEROL 25 MCG INHALER INH SCH (08:33)
[2017-08-13] MEDS: FLUTICASONE PROPIONATE 44 MCG/ACT 10.6 GM INHALER INH SCH ×2 (08:33→21:00)
--- NOTE | 2017-08-13 20:03 | HHI.PR ---
Subjective Remarks Follow-up ARF/UTI-Klebsiella 08/13/17-patient seen and examined; Afebrile and Renal indices improving. No CP Objective Vitals Vital Signs Date Time Temp Pulse Resp B/P (MAP) Pulse Ox O2 Delivery O2 Flow Rate FiO2 08/13/17 16:00 98.4 55 18 138/63 (88) 92 08/13/17 12:00 98.0 54 18 118/61 (80) 94 08/13/17 07:25 62 08/13/17 07:01 97.8 61 18 109/53 (71) 95 08/13/17 04:00 98.3 50 18 115/53 (73) 94 08/13/17 03:42 51 08/13/17 00:00 98.6 51 17 111/56 (74) 94 08/12/17 23:56 58 08/12/17 22:32 Room Air I/O 08/12/17 08/12/17 08/12/17 08/13/17 08/13/17 08/13/17 07:00 15:00 23:00 07:00 15:00 23:00 Intake Total 240 ml 650 ml 1600 ml 600 ml Output Total 350 ml 475 ml Balance -110 ml 175 ml 1600 ml 600 ml Intake Oral 240 ml 550 ml 600 ml 600 ml IV Total 100 ml 1000 ml Output Urine Total 350 ml 475 ml # Voids 1 5 # Bowel Movements 3 0 0 Result Diagram: 08/13/17 0655 08/13/17 0635 Imaging Last Impressions Renal Ultrasound 08/11/17 0000 Signed Impressions: Service Date/Time: July 22:02 - CONCLUSION: 1. Small atrophic right kidney with small simple cyst. 2. Unremarkable left kidney. Torres Hernandez MD Objective Remarks GENERAL: NAD SKIN: Warm and dry. HEAD: Normocephalic. EYES: No scleral icterus. No injection or drainage. NECK: Supple, trachea midline. No JVD or lymphadenopathy. CARDIOVASCULAR: Regular rate and rhythm without murmurs, gallops, or rubs. RESPIRATORY: Breath sounds equal bilaterally. No accessory muscle use. GASTROINTESTINAL: Abdomen soft, non-tender, nondistended. MUSCULOSKELETAL: No cyanosis, or edema. BACK: Nontender without obvious deformity. No CVA tenderness. A/P Assessment and Plan 1. Hyperkalemia-Resolved Potassium 7.0 on admission but now down to 5.6. Status post calcium gluconate, insulin, Kayexalate and D50 in the ED 2. Acute renal failure Renal indices improving Renal ultrasound shows small atrophic right kidney w small cyst. Unremarkable left kidney Continue IV fluid hydration Monitor renal function 3. UTI-Klebsiella ID consultation pending Continue with current antibiotic 4. COPD/CAD/hypertension/hyperlipidemia/dementia Continue home medications Edenilson Lundy MD Aug 13, 2017 20:03
[2017-08-13] MEDS: cefTRIAXone INJ 1,000 MG in SODIUM CHLORIDE 0.9% INJ 100 ML IV SCH (20:59)
[2017-08-14] VITALS (11 sets, daily range): BP systolic 125–181; BP diastolic 60–93; PULSE 43–56; RESP 18–24; TEMP 97.7–99.4; O2SAT 93–98
[2017-08-14] MEDS: DULoxetine HCl DR 20 MG CAP PO SCH (08:03)
[2017-08-14] MEDS: SODIUM CHLOR 0.9% 1000 ML INJ 1,000 ML IV SCH ×2 (08:03→21:42)
[2017-08-14] MEDS: ASPIRIN 81 MG CHEW TAB CHEW SCH (08:04)
[2017-08-14] MEDS: PANTOPRAZOLE SOD 20 MG DELAYED RELEASE TAB PO SCH (08:04)
[2017-08-14] MEDS: PRAVASTATIN SOD 40 MG TAB PO SCH (08:04)
[2017-08-14] MEDS: ESCITALOPRAM OXALATE 20 MG TAB PO SCH (08:04)
[2017-08-14] MEDS: DOCUSATE SODIUM 50 MG/SENNA 8.6 MG TAB PO SCH ×2 (08:04→21:00)
[2017-08-14] MEDS: FERROUS SULFATE 325 MG (65 MG ELEMENTAL IRON) TAB PO SCH ×2 (08:05→18:16)
[2017-08-14] MEDS: CLOPIDOGREL 75 MG TAB PO SCH (08:05)
[2017-08-14] MEDS: METOPROLOL TARTRATE 50 MG TAB PO SCH ×2 (08:05→21:00)
[2017-08-14 08:10] LABS: AUTOMATED NEUTROPHIL # 1.9 TH/MM3 (1.8-7.7); BASOPHIL % 0.3 % (0.0-2.0); EOSINOPHIL % 0.4 % (0.0-4.0); MEAN CELL VOLUME 79.2 FL (80.0-100.0); MEAN CORPUSCULAR HEMOGLOBIN 25.9 PG (27.0-34.0); MEAN CORPUSCULAR HGB CONC 32.7 % (32.0-36.0); MEAN PLATELET VOLUME 11.9 FL (7.0-11.0); MONO % 20.1 % (0.0-8.0); NEUT % 38.2 % (16.0-70.0); PLATELET COUNT 90 TH/MM3 (150-450); RED BLOOD COUNT 2.57 MIL/MM3 (4.00-5.30); RED CELL DISTRIBUTION WIDTH 18.8 % (11.6-17.2); WHITE BLOOD COUNT 4.9 TH/MM3 (4.0-11.0)
[2017-08-14] MEDS: HEPARIN SODIUM - SQ 10,000 UNITS/ML VIAL SQ SCH ×2 (08:20→21:58)
[2017-08-14] MEDS: UMECLIDINIUM 62.5 MCG/VILANTEROL 25 MCG INHALER INH SCH (08:21)
[2017-08-14] MEDS: FLUTICASONE PROPIONATE 44 MCG/ACT 10.6 GM INHALER INH SCH ×2 (08:21→21:43)
[2017-08-14] MEDS: SODIUM CHLORIDE 0.9% FLUSH 10 ML FLUSH IV FLUSH SCH ×2 (08:25→21:42)
[2017-08-14 08:33] LABS: BICARBONATE 18.6 MEQ/L (21.0-32.0); CALCIUM 8.5 MG/DL (8.5-10.1); CREATININE 0.97 MG/DL (0.50-1.00)
[2017-08-14 09:08] LABS: HEMATOCRIT 20.4 % (35.0-46.0); HEMOGLOBIN 6.7 GM/DL (11.6-15.3)
[2017-08-14] MEDS ORDERED: ACETAMINOPHEN 325 MG TAB PO PRN (10:30)
[2017-08-14] MEDS ORDERED: SODIUM CHLOR 0.9% 250 ML INJ 250 ML IV ONE (10:30)
[2017-08-14] MEDS ORDERED: FUROSEMIDE 20 MG/2 ML VIAL IV PUSH ONE (10:30)
[2017-08-14] MEDS ORDERED: diphenhydrAMINE HCL 25 MG CAP PO PRN (10:30)
--- NOTE | 2017-08-14 10:37 | HHI.PR ---
Subjective Remarks Follow-up ARF/UTI-Klebsiella and now anemia 08/13/17-patient seen and examined; Afebrile and Renal indices improving. No CP 08/14/17-patient seen and examined H&H dropping of the patient denies any GI bleed. Denies any chest pain or shortness of breath. Currently afebrile. Renal indices improving Objective Vitals Vital Signs Date Time Temp Pulse Resp B/P (MAP) Pulse Ox O2 Delivery O2 Flow Rate FiO2 08/14/17 08:29 Room Air 08/14/17 07:43 98.1 53 20 181/72 (108) 96 08/14/17 06:04 Room Air 08/14/17 05:39 98.0 56 18 146/66 (92) 93 08/14/17 01:36 99.4 56 18 125/60 (81) 98 08/14/17 00:30 52 08/13/17 22:00 50 08/13/17 21:30 Room Air 08/13/17 20:58 98.5 51 18 141/64 (89) 93 08/13/17 16:00 98.4 55 18 138/63 (88) 92 08/13/17 12:00 98.0 54 18 118/61 (80) 94 I/O 08/13/17 08/13/17 08/13/17 08/14/17 08/14/17 08/14/17 07:00 15:00 23:00 07:00 15:00 23:00 Intake Total 1600 ml 1840 ml Balance 1600 ml 1840 ml Intake Oral 600 ml 840 ml IV Total 1000 ml 1000 ml # Voids 1 6 2 # Bowel Movements 0 Result Diagram: 08/14/17 0737 08/14/17 0725 Imaging Last Impressions Renal Ultrasound 08/11/17 0000 Signed Impressions: Service Date/Time: July 22:02 - CONCLUSION: 1. Small atrophic right kidney with small simple cyst. 2. Unremarkable left kidney. Torres Hernandez MD Objective Remarks GENERAL: NAD SKIN: Warm and dry. HEAD: Normocephalic. EYES: No scleral icterus. No injection or drainage. NECK: Supple, trachea midline. No JVD or lymphadenopathy. CARDIOVASCULAR: Regular rate and rhythm without murmurs, gallops, or rubs. RESPIRATORY: Breath sounds equal bilaterally. No accessory muscle use. GASTROINTESTINAL: Abdomen soft, non-tender, nondistended. MUSCULOSKELETAL: No cyanosis, or edema. BACK: Nontender without obvious deformity. No CVA tenderness. A/P Problem List: (1) Acute renal insufficiency ICD Code: N28.9 - Disorder of kidney and ureter, unspecified Status: Acute (2) Normochromic normocytic anemia ICD Code: D64.9 - Anemia, unspecified (3) Hyperkalemia ICD Code: E87.5 - Hyperkalemia Status: Acute Assessment and Plan 72-year-old female with 1. Hyperkalemia-Resolved Potassium 7.0 on admission but now down to 5.6. Status post calcium gluconate, insulin, Kayexalate and D50 in the ED 2. Acute renal failure Renal indices improving Renal ultrasound shows small atrophic right kidney w small cyst. Unremarkable left kidney Continue IV fluid hydration Monitor renal function 3. UTI-Klebsiella ID consultation pending Continue with current antibiotic 4. Normochromic normocytic anemia Check Hemoccult, iron study, LDL, reticulocyte count Transfuse 2 units packed red blood cell today 08/14/17 Monitor H&H 5. COPD/CAD/hypertension/hyperlipidemia/dementia Continue home medications 6. Thrombocytopenia Monitor Platelets count Edenilson Lundy MD Aug 14, 2017 10:37
[2017-08-14 13:03] LABS: % SATURATION IRON PROFILE 12.9 % (20-50); IRON (FE) 29 MCG/DL (50-170); TOTAL IRON BINDING CAPACITY 225 MCG/DL (250-450)
--- NOTE | 2017-08-14 15:54 | PD.ID.CON ---
History of Present Illness Service ID Consult Requested By Dr Lundy Reason for Consult ESBL + UTI Primary Care Physician Unknown Diagnoses: History of Present Illness 72 yo F demented and unable to provide history She has MDS and she presented with abnormal CBC Hb is low so are plts No clincially apparent bleeding She also was found tohave ZEINA with creatinine near 3 Noted to have abnormal UA, C+S with ESBL + org Pt is incontinent of urine Her renal function is improving Review of Systems ROS Limitations: Altered Mental Status (confused), Poor Historian Except as stated in HPI: all other systems reviewed are Neg Past Family Social History Allergies: Coded Allergies: codeine (Verified Allergy, Unknown, 05/19/17) Past Medical History 1. Myelodysplastic syndrome, on Procrit. 2. Chronic obstructive pulmonary disease. 3. Coronary artery disease. 4. Depression. 5. Hypercholesterolemia. 6. Hypertension. 7. Osteoporosis. 8. History of stroke with residual right hemiparesis. Past Surgical History cardiac stents Active Ordered Medications Medications where reviewed in EMR Antibiotics Include: CFTX Family History Cardiovascular disease and stroke Social History 1 ppd cigarettes for over 47 years. Denies any alcohol use. Denies any illicit drug use. Physical Exam Vital Signs Vital Signs Date Time Temp Pulse Resp B/P (MAP) Pulse Ox O2 Delivery O2 Flow Rate FiO2 08/14/17 15:15 97.7 50 24 155/70 96 08/14/17 12:43 98.9 48 20 166/75 (105) 98 08/14/17 08:29 Room Air 08/14/17 07:43 98.1 53 20 181/72 (108) 96 08/14/17 06:04 Room Air 08/14/17 05:39 98.0 56 18 146/66 (92) 93 08/14/17 01:36 99.4 56 18 125/60 (81) 98 08/14/17 00:30 52 08/13/17 22:00 50 08/13/17 21:30 Room Air 08/13/17 20:58 98.5 51 18 141/64 (89) 93 08/13/17 16:00 98.4 55 18 138/63 (88) 92 Physical Exam CONSTITUTIONAL/GENERAL: This is an adequately nourished patient, in no apparent distress. TUBES/LINES/DRAINS: SKIN: No jaundice, rashes, or lesions. Ecchymoses on upper extremities. No wounds seen anteriorly. Skin temperature appropriate. Not diaphoretic. HEAD: Atraumatic. Normocephalic. EYES: Pupils equal and round and reactive. Extraocular motions intact. No scleral icterus. No injection or drainage. Fundi not examined. ENT: Hearing grossly normal. Nose without bleeding or purulent drainage. Oral mucosae without visible erythema, exudates, masses, or lesions. NECK: Trachea midline. Supple, nontender. CARDIOVASCULAR: Regular rate and rhythm without murmurs, gallops, or rubs. No JVD. Peripheral pulses symmetric. RESPIRATORY/CHEST: Symmetric, unlabored respirations. Clear to auscultation. Breath sounds equal bilaterally. No wheezes, rales, or rhonchi. GASTROINTESTINAL: Abdomen soft, non-tender, nondistended. No hepato-splenomegaly , or palpable masses. No guarding. Bowel sounds present. GENITOURINARY: Without palpable bladder distension. MUSCULOSKELETAL: Extremities without clubbing, cyanosis, or edema. No joint tenderness or effusion noted. No calf tenderness. No mottling or clubbing. LYMPHATICS: No palpable cervical or supraclavicular adenopathy. NEUROLOGICAL: Awake and alert. Motor and sensory grossly within normal limits. Follows commands. Confused. Demonstrates obvious memory deficits Moves all extremities. PSYCHIATRIC: No obvious anxiety/depression. no apparent hallucinations or other psychotic thought process.Flat affect Laboratory Laboratory Tests Test 08/14/17 07:25 08/14/17 07:37 08/14/17 11:58 Blood Urea Nitrogen 20 Creatinine 0.97 Random Glucose 88 Calcium Level 8.5 Sodium Level 142 Potassium Level 3.6 Chloride Level 114 Carbon Dioxide Level 18.6 Anion Gap 9 Estimat Glomerular Filtration Rate 57 White Blood Count 4.9 Red Blood Count 2.57 Hemoglobin 6.7 Hematocrit 20.4 Mean Corpuscular Volume 79.2 Mean Corpuscular Hemoglobin 25.9 Mean Corpuscular Hemoglobin Concent 32.7 Red Cell Distribution Width 18.8 Platelet Count 90 Mean Platelet Volume 11.9 Neutrophils (%) (Auto) 38.2 Lymphocytes (%) (Auto) 41.0 Monocytes (%) (Auto) 20.1 Eosinophils (%) (Auto) 0.4 Basophils (%) (Auto) 0.3 Neutrophils # (Auto) 1.9 Lymphocytes # (Auto) 2.0 Monocytes # (Auto) 1.0 Eosinophils # (Auto) 0.0 Basophils # (Auto) 0.0 CBC Comment AUTO DIFF Differential Comment AUTO DIFF CONFIRMED Platelet Estimate LOW Platelet Morphology Comment ENLARGED Iron Level 29 Total Iron Binding Capacity 225 Percent Iron Saturation 12.9 Date/Time Source Procedure Growth Status 08/11/17 23:30 Urine Catheterized Urine Urine Culture - Final Escherichia Coli Esbl Positive Multi-Drug Resistant Complete Result Diagram: 08/14/17 0737 08/14/17 0725 Imaging Last Impressions Renal Ultrasound 08/11/17 0000 Signed Impressions: Service Date/Time: July 22:02 - CONCLUSION: 1. Small atrophic right kidney with small simple cyst. 2. Unremarkable left kidney. Torres Hernandez MD Assessment and Plan Assessment and Plan ESBL + E.coli UTI MDS ZEINA - resolving REC's: change abx to Ertapenem Marci Jeffries MD Aug 14, 2017 15:54
[2017-08-14] MEDS ORDERED: ASP: Documented ESBL, MDR A baumannii or P. aeruginosa PRN (16:00)
[2017-08-14] MEDS ORDERED: MISCELLANEOUS PHARMACY INFORMATION XX PRN (16:00)
[2017-08-14] MEDS: ERTAPENEM INJ 1,000 MG in SODIUM CHLORIDE 0.9% INJ 100 ML IV SCH (21:42)
[2017-08-15] VITALS (8 sets, daily range): BP systolic 152–183; BP diastolic 70–84; PULSE 40–50; RESP 16–20; TEMP 97.4–98.2; O2SAT 94–98
[2017-08-15] MEDS: METOPROLOL TARTRATE 50 MG TAB PO SCH ×3 (01:58→20:56)
[2017-08-15] MEDS: SODIUM CHLOR 0.9% 1000 ML INJ 1,000 ML IV SCH ×2 (05:33→15:53)
[2017-08-15] MEDS: DOCUSATE SODIUM 50 MG/SENNA 8.6 MG TAB PO SCH ×2 (08:12→20:56)
[2017-08-15] MEDS: DULoxetine HCl DR 20 MG CAP PO SCH (08:12)
[2017-08-15] MEDS: PRAVASTATIN SOD 40 MG TAB PO SCH (08:12)
[2017-08-15] MEDS: PANTOPRAZOLE SOD 20 MG DELAYED RELEASE TAB PO SCH (08:12)
[2017-08-15] MEDS: ASPIRIN 81 MG CHEW TAB CHEW SCH (08:13)
[2017-08-15] MEDS: FERROUS SULFATE 325 MG (65 MG ELEMENTAL IRON) TAB PO SCH ×2 (08:13→17:42)
[2017-08-15] MEDS: CLOPIDOGREL 75 MG TAB PO SCH (08:13)
[2017-08-15] MEDS: ESCITALOPRAM OXALATE 20 MG TAB PO SCH (08:13)
[2017-08-15] MEDS: HEPARIN SODIUM - SQ 10,000 UNITS/ML VIAL SQ SCH ×2 (08:16→20:59)
[2017-08-15] MEDS: FLUTICASONE PROPIONATE 44 MCG/ACT 10.6 GM INHALER INH SCH ×2 (08:17→20:57)
[2017-08-15] MEDS: SODIUM CHLORIDE 0.9% FLUSH 10 ML FLUSH IV FLUSH SCH ×2 (08:17→20:57)
[2017-08-15] MEDS: UMECLIDINIUM 62.5 MCG/VILANTEROL 25 MCG INHALER INH SCH (08:17)
[2017-08-15 10:47] LABS: AUTOMATED NEUTROPHIL # 2.3 TH/MM3 (1.8-7.7); BASOPHIL % 0.4 % (0.0-2.0); EOSINOPHIL % 0.7 % (0.0-4.0); HEMATOCRIT 29.7 % (35.0-46.0); HEMOGLOBIN 10.1 GM/DL (11.6-15.3); LYMPH % 39.3 % (9.0-44.0); LYMPHOCYTE # 2.2 TH/MM3 (1.0-4.8); MEAN CELL VOLUME 80.2 FL (80.0-100.0); MEAN CORPUSCULAR HEMOGLOBIN 27.2 PG (27.0-34.0); MEAN CORPUSCULAR HGB CONC 33.9 % (32.0-36.0); MEAN PLATELET VOLUME 12.1 FL (7.0-11.0); MONO % 18.4 % (0.0-8.0); NEUT % 41.2 % (16.0-70.0); PLATELET COUNT 96 TH/MM3 (150-450); WHITE BLOOD COUNT 5.6 TH/MM3 (4.0-11.0)
[2017-08-15 10:56] LABS: BICARBONATE 18.6 MEQ/L (21.0-32.0); CALCIUM 8.7 MG/DL (8.5-10.1); CREATININE 0.79 MG/DL (0.50-1.00)
--- NOTE | 2017-08-15 11:05 | HHI.PR ---
Subjective Remarks Follow-up ARF/UTI-Klebsiella and now anemia 08/13/17-patient seen and examined; Afebrile and Renal indices improving. No CP 08/14/17-patient seen and examined H&H dropping of the patient denies any GI bleed. Denies any chest pain or shortness of breath. Currently afebrile. Renal indices improving 08/15/17-patient seen and examined; transfused 2 units yesterday; Currently on Ertapenem; Afebrile. CBC pending Objective Vitals Vital Signs Date Time Temp Pulse Resp B/P (MAP) Pulse Ox O2 Delivery O2 Flow Rate FiO2 08/15/17 08:00 98.0 45 16 176/77 (110) 95 08/15/17 08:00 Room Air 08/15/17 05:36 98.2 43 20 183/84 (117) 94 08/15/17 04:35 44 178/75 (109) 08/15/17 04:02 44 08/15/17 04:02 44 08/15/17 01:00 97.4 47 18 175/79 (111) 96 08/14/17 23:53 52 08/14/17 22:30 Room Air 08/14/17 21:00 98.0 45 18 155/93 98 08/14/17 20:00 98.1 45 18 161/69 (99) 96 08/14/17 19:58 43 08/14/17 15:45 97.7 50 20 147/69 97 08/14/17 15:15 97.7 50 24 155/70 96 08/14/17 12:43 98.9 48 20 166/75 (105) 98 I/O 08/14/17 08/14/17 08/14/17 08/15/17 08/15/17 08/15/17 07:00 15:00 23:00 07:00 15:00 23:00 Intake Total 1480 ml Balance 1480 ml Intake Oral 660 ml Packed Cells 800 ml Blood Product IV Normal Saline Flush 20 ml # Voids 2 4 3 # Bowel Movements 3 1 Result Diagram: 08/14/17 0737 08/15/17 0804 Imaging Last Impressions Renal Ultrasound 08/11/17 0000 Signed Impressions: Service Date/Time: July 22:02 - CONCLUSION: 1. Small atrophic right kidney with small simple cyst. 2. Unremarkable left kidney. Torres Hernandez MD Objective Remarks GENERAL: NAD SKIN: Warm and dry. HEAD: Normocephalic. EYES: No scleral icterus. No injection or drainage. NECK: Supple, trachea midline. No JVD or lymphadenopathy. CARDIOVASCULAR: Regular rate and rhythm without murmurs, gallops, or rubs. RESPIRATORY: Breath sounds equal bilaterally. No accessory muscle use. GASTROINTESTINAL: Abdomen soft, non-tender, nondistended. MUSCULOSKELETAL: No cyanosis, or edema. BACK: Nontender without obvious deformity. No CVA tenderness. A/P Problem List: (1) Acute renal insufficiency ICD Code: N28.9 - Disorder of kidney and ureter, unspecified Status: Acute (2) Normochromic normocytic anemia ICD Code: D64.9 - Anemia, unspecified (3) Hyperkalemia ICD Code: E87.5 - Hyperkalemia Status: Acute (4) Iron deficiency anemia ICD Code: D50.9 - Iron deficiency anemia, unspecified Assessment and Plan 72-year-old female with 1. Hyperkalemia-Resolved Potassium 7.0 on admission but now down to 5.6. Status post calcium gluconate, insulin, Kayexalate and D50 in the ED 2. Acute renal failure Renal indices improving Renal ultrasound shows small atrophic right kidney w small cyst. Unremarkable left kidney Continue IV fluid hydration Monitor renal function 3. UTI-Klebsiella ID consultation appreciated Continue with Ertapenem 4. Normochromic normocytic anemia Transfused 2 units packed red blood cell 08/14/17 Monitor H&H 5. Iron deficiency anemia Will transfuse Venofer 08/15 6. COPD/CAD/hypertension/hyperlipidemia/dementia Continue home medications 7. Thrombocytopenia Monitor Platelets count 8. Hypokalemia Give K 60Meq X 1 now Edenilson Lundy MD Aug 15, 2017 11:05
[2017-08-15] MEDS ORDERED: POTASSIUM CHLORIDE 10 MEQ CONTROLLED RELEASE TAB PO ONE (11:15)
[2017-08-15] MEDS: IRON SUCROSE INJ 200 MG in SODIUM CHLORIDE 0.9% INJ 100 ML IV SCH (15:53)
[2017-08-15] MEDS: hydrALAZINE HCL 25 MG TAB PO PRN (17:43)
[2017-08-15] MEDS: ERTAPENEM INJ 1,000 MG in SODIUM CHLORIDE 0.9% INJ 100 ML IV SCH (17:43)
--- NOTE | 2017-08-15 19:45 | HHI.IDPN ---
Subjective Subjective Remarks afebrile doing ok stable sp transfusion WBC wnl Antibiotics Ertapenem Allergies: Coded Allergies: codeine (Verified Allergy, Unknown, 05/19/17) Objective . Vital Signs Date Time Temp Pulse Resp B/P (MAP) Pulse Ox O2 Delivery O2 Flow Rate FiO2 08/15/17 16:00 98.1 41 19 169/75 (106) 98 08/15/17 12:00 98.2 44 17 173/76 (108) 97 08/15/17 08:00 98.0 45 16 176/77 (110) 95 08/15/17 08:00 Room Air 08/15/17 08:00 40 08/15/17 05:36 98.2 43 20 183/84 (117) 94 08/15/17 04:35 44 178/75 (109) 08/15/17 04:02 44 08/15/17 04:02 44 08/15/17 01:00 97.4 47 18 175/79 (111) 96 08/14/17 23:53 52 08/14/17 22:30 Room Air 08/14/17 21:00 98.0 45 18 155/93 98 08/14/17 20:00 98.1 45 18 161/69 (99) 96 08/14/17 19:58 43 08/15/17 08/15/17 08/16/17 15:00 23:00 07:00 # Voids 3 . Laboratory Tests Test 08/14/17 07:37 08/15/17 08:04 White Blood Count 4.9 TH/MM3 5.6 TH/MM3 Red Blood Count 2.57 MIL/MM3 3.70 MIL/MM3 Hemoglobin 6.7 GM/DL 10.1 GM/DL Hematocrit 20.4 % 29.7 % Mean Corpuscular Volume 79.2 FL 80.2 FL Mean Corpuscular Hemoglobin 25.9 PG 27.2 PG Mean Corpuscular Hemoglobin Concent 32.7 % 33.9 % Red Cell Distribution Width 18.8 % 18.0 % Platelet Count 90 TH/MM3 96 TH/MM3 Mean Platelet Volume 11.9 FL 12.1 FL Neutrophils (%) (Auto) 38.2 % 41.2 % Lymphocytes (%) (Auto) 41.0 % 39.3 % Monocytes (%) (Auto) 20.1 % 18.4 % Eosinophils (%) (Auto) 0.4 % 0.7 % Basophils (%) (Auto) 0.3 % 0.4 % Neutrophils # (Auto) 1.9 TH/MM3 2.3 TH/MM3 Lymphocytes # (Auto) 2.0 TH/MM3 2.2 TH/MM3 Monocytes # (Auto) 1.0 TH/MM3 1.0 TH/MM3 Eosinophils # (Auto) 0.0 TH/MM3 0.0 TH/MM3 Basophils # (Auto) 0.0 TH/MM3 0.0 TH/MM3 CBC Comment AUTO DIFF AUTO DIFF Differential Comment AUTO DIFF CONFIRMED AUTO DIFF CONFIRMED Platelet Estimate LOW LOW Platelet Morphology Comment ENLARGED ENLARGED Laboratory Tests Test 08/14/17 07:25 08/14/17 11:58 08/15/17 08:04 Blood Urea Nitrogen 20 MG/DL 10 MG/DL Creatinine 0.97 MG/DL 0.79 MG/DL Random Glucose 88 MG/DL 77 MG/DL Calcium Level 8.5 MG/DL 8.7 MG/DL Sodium Level 142 MEQ/L 140 MEQ/L Potassium Level 3.6 MEQ/L 3.2 MEQ/L Chloride Level 114 MEQ/L 111 MEQ/L Carbon Dioxide Level 18.6 MEQ/L 18.6 MEQ/L Anion Gap 9 MEQ/L 10 MEQ/L Estimat Glomerular Filtration Rate 57 ML/MIN 72 ML/MIN Iron Level 29 MCG/DL Total Iron Binding Capacity 225 MCG/DL Percent Iron Saturation 12.9 % Imaging Last Impressions Renal Ultrasound 08/11/17 0000 Signed Impressions: Service Date/Time: July 22:02 - CONCLUSION: 1. Small atrophic right kidney with small simple cyst. 2. Unremarkable left kidney. Torres Hernandez MD Physical Exam CONSTITUTIONAL/GENERAL: This is an adequately nourished patient, in no apparent distress. TUBES/LINES/DRAINS: SKIN: No jaundice, rashes, or lesions. CARDIOVASCULAR: Regular rate and rhythm without murmurs, gallops, or rubs. No JVD. Peripheral pulses symmetric. RESPIRATORY/CHEST: Symmetric, unlabored respirations. Clear to auscultation. Breath sounds equal bilaterally. No wheezes, rales, or rhonchi. GASTROINTESTINAL: Abdomen soft, non-tender, nondistended. No hepato-splenomegaly , or palpable masses. No guarding. Bowel sounds present. GENITOURINARY: Without palpable bladder distension. MUSCULOSKELETAL: Extremities without clubbing, cyanosis, or edema. NEUROLOGICAL: Awake and alert. Motor and sensory grossly within normal limits. Follows commands. Confused. Demonstrates obvious memory deficits Moves all extremities. PSYCHIATRIC: No obvious anxiety/depression. no apparent hallucinations or other psychotic thought process.Flat affect Assessment & Plan Remarks ESBL + E.coli UTI MDS ZEINA - resolved REC's: cont Ertapenem x 2 weeks OPAT PICC or midline Marci Jeffries MD Aug 15, 2017 19:45
--- NOTE | 2017-08-15 19:46 | HHI.FF ---
Infusion Therapy Location of Infusion Therapy: Home [facility] IV Infusion Order Patient Information Patient Weight 64.5 kg Diagnosis: Coded Allergies: codeine (Verified Allergy, Unknown, 05/19/17) Administer Medication Ertapenem 1 gram IV q 24 hours Start Treatment: Aug 16, 2017 Stop Treatment: Aug 27, 2017 Additional Information Venous access: PICC Line Additional Instructions [x] Peripheral flush and dressing changes per protocol [x] Implanted port and central slackline operator: * Implanted port: 10 ml Normal Saline followed by 5 ml Heparin 100 units/ml Heparin flush after each use and monthly to maintain. [] May leave port accessed during therapy. [] May leave peripheral site accessed for duration of therapy. [x] If patient has SOB or respiratory distress, check oxygen saturation. If less than 90% or clinical signs of respiratory distress, administer oxygen at 2 L/min. via nasal cannula and notify physician. [x] Anaphylaxis/Reaction orders: * Stop infusion. * Keep IV line open with saline flush. * Notify physician. * Monitor vital signs every 15 minutes until symptoms resolve. * Check Oxygen saturation; Oxygen at 2 L/min. via nasal cannula if less than 90% or clinical signs of respiratory distress. * Administer diphenhydramine (Benadryl) 25 mg IV STAT, (unless patient has received as pre-med). May repeat once, if necessary. * Solu-Cortef 250 mg IVP over 30-60 seconds, use 100 mg vials for each dissolution. * Epinephrine (1mg/1 ml) 0.3 mg subcutaneously or IVP now with any signs of respiratory distress. * Check with physician for new additional pre-med orders if patient is re- challenged or re-treated. [x] May remove PICC line when treatment complete, after confirming with Physician. [x] If the patient is admitted to the hospital, the ED, or transferred via [facility] , complete transfer form including medication reconciliation order sheet. Laboratory Tests Weekly Labs: CBC w/diff, Creatinine Marci Jeffries MD Aug 15, 2017 19:46
[2017-08-16] VITALS (9 sets, daily range): BP systolic 149–181; BP diastolic 69–89; PULSE 41–68; RESP 17–22; TEMP 97.4–98.6; O2SAT 94–98
[2017-08-16] MEDS: SODIUM CHLOR 0.9% 1000 ML INJ 1,000 ML IV SCH (02:30)
[2017-08-16 07:21] LABS: AUTOMATED NEUTROPHIL # 2.6 TH/MM3 (1.8-7.7); BASOPHIL % 0.3 % (0.0-2.0); EOSINOPHIL % 0.5 % (0.0-4.0); HEMATOCRIT 31.8 % (35.0-46.0); HEMOGLOBIN 10.7 GM/DL (11.6-15.3); LYMPH % 33.3 % (9.0-44.0); MEAN CELL VOLUME 79.4 FL (80.0-100.0); MEAN CORPUSCULAR HEMOGLOBIN 26.8 PG (27.0-34.0); MEAN CORPUSCULAR HGB CONC 33.7 % (32.0-36.0); MEAN PLATELET VOLUME 11.2 FL (7.0-11.0); MONO % 22.2 % (0.0-8.0); MONOCYTE # 1.3 TH/MM3 (0-0.9); NEUT % 43.7 % (16.0-70.0); PLATELET COUNT 96 TH/MM3 (150-450); RED BLOOD COUNT 4.01 MIL/MM3 (4.00-5.30); RED CELL DISTRIBUTION WIDTH 17.7 % (11.6-17.2); WHITE BLOOD COUNT 5.9 TH/MM3 (4.0-11.0)
[2017-08-16 07:47] LABS: CALCIUM 8.2 MG/DL (8.5-10.1); CREATININE 0.64 MG/DL (0.50-1.00)
[2017-08-16] MEDS: DOCUSATE SODIUM 50 MG/SENNA 8.6 MG TAB PO SCH ×2 (09:18→20:58)
[2017-08-16] MEDS: PANTOPRAZOLE SOD 20 MG DELAYED RELEASE TAB PO SCH (09:18)
[2017-08-16] MEDS: ASPIRIN 81 MG CHEW TAB CHEW SCH (09:19)
[2017-08-16] MEDS: FERROUS SULFATE 325 MG (65 MG ELEMENTAL IRON) TAB PO SCH ×2 (09:19→17:25)
[2017-08-16] MEDS: ESCITALOPRAM OXALATE 20 MG TAB PO SCH (09:19)
[2017-08-16] MEDS: DULoxetine HCl DR 20 MG CAP PO SCH (09:19)
[2017-08-16] MEDS: CLOPIDOGREL 75 MG TAB PO SCH (09:19)
[2017-08-16] MEDS: PRAVASTATIN SOD 40 MG TAB PO SCH (09:19)
[2017-08-16] MEDS: METOPROLOL TARTRATE 50 MG TAB PO SCH ×2 (09:19→20:58)
[2017-08-16] MEDS: HEPARIN SODIUM - SQ 10,000 UNITS/ML VIAL SQ SCH ×2 (09:20→20:59)
[2017-08-16] MEDS: FLUTICASONE PROPIONATE 44 MCG/ACT 10.6 GM INHALER INH SCH ×2 (09:21→21:00)
[2017-08-16] MEDS: UMECLIDINIUM 62.5 MCG/VILANTEROL 25 MCG INHALER INH SCH (09:21)
[2017-08-16] MEDS: IRON SUCROSE INJ 200 MG in SODIUM CHLORIDE 0.9% INJ 100 ML IV SCH ×2 (09:22→10:42)
[2017-08-16] MEDS: SODIUM CHLORIDE 0.9% FLUSH 10 ML FLUSH IV FLUSH SCH ×2 (09:22→20:58)
--- NOTE | 2017-08-16 10:55 | HHI.PR ---
Subjective Remarks Follow-up ARF/UTI-Klebsiella and now anemia 08/13/17-patient seen and examined; Afebrile and Renal indices improving. No CP 08/14/17-patient seen and examined H&H dropping of the patient denies any GI bleed. Denies any chest pain or shortness of breath. Currently afebrile. Renal indices improving 08/15/17-patient seen and examined; transfused 2 units yesterday; Currently on Ertapenem; Afebrile. CBC pending 08/16/2017-patient seen and examined, no acute event overnight, BP labile however she denies any chest pain, dizziness, shortness of breath.. Objective Vitals Vital Signs Date Time Temp Pulse Resp B/P (MAP) Pulse Ox O2 Delivery O2 Flow Rate FiO2 08/16/17 04:00 98.6 46 18 177/74 (108) 97 08/16/17 00:00 98.3 45 18 160/70 (100) 97 08/15/17 20:00 98.2 50 18 152/70 (97) 97 08/15/17 16:00 98.1 41 19 169/75 (106) 98 08/15/17 12:00 98.2 44 17 173/76 (108) 97 I/O 08/15/17 08/15/17 08/15/17 08/16/17 08/16/17 08/16/17 07:00 15:00 23:00 07:00 15:00 23:00 Intake Total 2303 ml Output Total 250 ml 1000 ml Balance 2053 ml -1000 ml IV Total 2303 ml Output Urine Total 250 ml 1000 ml # Voids 3 3 # Bowel Movements 1 Result Diagram: 08/16/17 0657 08/16/17 0657 Imaging Last Impressions Renal Ultrasound 08/11/17 0000 Signed Impressions: Service Date/Time: July 22:02 - CONCLUSION: 1. Small atrophic right kidney with small simple cyst. 2. Unremarkable left kidney. Torres Hernandez MD Objective Remarks GENERAL: NAD SKIN: Warm and dry. HEAD: Normocephalic. EYES: No scleral icterus. No injection or drainage. NECK: Supple, trachea midline. No JVD or lymphadenopathy. CARDIOVASCULAR: Regular rate and rhythm without murmurs, gallops, or rubs. RESPIRATORY: Breath sounds equal bilaterally. No accessory muscle use. GASTROINTESTINAL: Abdomen soft, non-tender, nondistended. MUSCULOSKELETAL: No cyanosis, or edema. BACK: Nontender without obvious deformity. No CVA tenderness. Procedures None A/P Problem List: (1) Acute renal insufficiency ICD Code: N28.9 - Disorder of kidney and ureter, unspecified Status: Resolved (2) Normochromic normocytic anemia ICD Code: D64.9 - Anemia, unspecified (3) Hyperkalemia ICD Code: E87.5 - Hyperkalemia Status: Acute (4) Iron deficiency anemia ICD Code: D50.9 - Iron deficiency anemia, unspecified (5) Hypokalemia ICD Code: E87.6 - Hypokalemia Assessment and Plan 72-year-old female with 1. Hyperkalemia-Resolved Potassium 7.0 on admission but now down to 5.6. Status post calcium gluconate, insulin, Kayexalate and D50 in the ED 2. Acute renal failure Renal indices improved Renal ultrasound shows small atrophic right kidney w small cyst. Unremarkable left kidney D/c IV fluid hydration Monitor renal function 3. UTI-Klebsiella ID consultation appreciated Continue with Ertapenem until 08/27/17 4. Normochromic normocytic anemia Transfused 2 units packed red blood cell 08/14/17 Monitor H&H 5. Iron deficiency anemia On Venofer 08/15 and end date 08/17/17 6. COPD/CAD/hypertension/hyperlipidemia/dementia Continue home medications 7. Thrombocytopenia Monitor Platelets count Hematology consult PRN 8. Hypokalemia Give K 80Meq X 1 now Edenilson Lundy MD Aug 16, 2017 10:55
[2017-08-16] MEDS ORDERED: POTASSIUM CHLORIDE 20 MEQ CONTROLLED RELEASE TAB PO ONE (11:00)
[2017-08-16] MEDS ORDERED: RESP: ALBUTEROL 2.5 MG/IPRATROPIUM 0.5 MG NEB (PRN) NEB (12:00)
--- NOTE | 2017-08-16 13:23 | RADRPT ---
EXAM DATE/TIME: 08/16/2017 12:48 [facility] COMPARISON: CHEST SINGLE AP, May 19, 2017, 7:01. INDICATIONS : Short of breath MEDICAL HISTORY : Hypertension. Chronic obstructive pulmonary disease. Cardiovascular disease. dementia, CVA, hemip legia, anemia SURGICAL HISTORY : Coronary artery stent. ENCOUNTER: Subsequent ACUITY: 4 - 6 days PAIN SCORE: Non-responsive. LOCATION: Bilateral chest FINDINGS: Lungs are hyperinflated but otherwise clear. Heart mediastinal structures are stable. Heart is mildly enlarged. Posttraumatic deformity of the right humeral head is noted. Osseous structures are otherwise intact. CONCLUSION: COPD Mild cardiomegaly No acute process Yann Walton MD on August 16, 2017 at 13:20 Board Certified Radiologist. This report was verified electronically.
[2017-08-16] MEDS: ERTAPENEM INJ 1,000 MG in SODIUM CHLORIDE 0.9% INJ 100 ML IV SCH (17:25)
[2017-08-16] MEDS: hydrALAZINE HCL 25 MG TAB PO PRN (17:38)
[2017-08-17] VITALS (8 sets, daily range): BP systolic 105–161; BP diastolic 63–89; PULSE 45–111; RESP 17–20; TEMP 97.3–99.3; O2SAT 93–98
[2017-08-17 09:10] LABS: AUTOMATED NEUTROPHIL # 2.6 TH/MM3 (1.8-7.7); BASOPHIL % 0.4 % (0.0-2.0); EOSINOPHIL % 0.4 % (0.0-4.0); HEMOGLOBIN 10.7 GM/DL (11.6-15.3); LYMPH % 35.2 % (9.0-44.0); LYMPHOCYTE # 2.2 TH/MM3 (1.0-4.8); MEAN CELL VOLUME 79.9 FL (80.0-100.0); MEAN CORPUSCULAR HEMOGLOBIN 26.7 PG (27.0-34.0); MEAN CORPUSCULAR HGB CONC 33.4 % (32.0-36.0); MEAN PLATELET VOLUME 11.7 FL (7.0-11.0); MONO % 21.9 % (0.0-8.0); MONOCYTE # 1.4 TH/MM3 (0-0.9); NEUT % 42.1 % (16.0-70.0); PLATELET COUNT 100 TH/MM3 (150-450); RED BLOOD COUNT 4.01 MIL/MM3 (4.00-5.30); RED CELL DISTRIBUTION WIDTH 17.5 % (11.6-17.2); WHITE BLOOD COUNT 6.2 TH/MM3 (4.0-11.0)
[2017-08-17 09:37] LABS: ALBUMIN 2.3 GM/DL (3.4-5.0); BICARBONATE 21.1 MEQ/L (21.0-32.0); BLOOD UREA NITROGEN 7 MG/DL (7-18); CALCIUM 8.5 MG/DL (8.5-10.1); CHLORIDE 108 MEQ/L (98-107); CREATININE 0.66 MG/DL (0.50-1.00); GLOMERULAR FILTRATION RATE 89 ML/MIN (>89); GLUCOSE,RANDOM 90 MG/DL (74-106); SODIUM (NA) 138 MEQ/L (136-145)
[2017-08-17 09:38] LABS: ALT (GPT) 14 U/L (10-53); AST (GOT) 20 U/L (15-37)
[2017-08-17 09:40] LABS: ALKALINE PHOSPHATASE 100 U/L (45-117); TOTAL BILIRUBIN ADULT 0.6 MG/DL (0.2-1.0); TOTAL PROTEIN 7.6 GM/DL (6.4-8.2)
[2017-08-17] MEDS: IRON SUCROSE INJ 200 MG in SODIUM CHLORIDE 0.9% INJ 100 ML IV SCH (10:25)
[2017-08-17] MEDS: HEPARIN SODIUM - SQ 10,000 UNITS/ML VIAL SQ SCH ×2 (10:26→20:38)
[2017-08-17] MEDS: ESCITALOPRAM OXALATE 20 MG TAB PO SCH (10:28)
[2017-08-17] MEDS: FERROUS SULFATE 325 MG (65 MG ELEMENTAL IRON) TAB PO SCH ×2 (10:28→18:11)
[2017-08-17] MEDS: ASPIRIN 81 MG CHEW TAB CHEW SCH (10:28)
[2017-08-17] MEDS: DOCUSATE SODIUM 50 MG/SENNA 8.6 MG TAB PO SCH ×2 (10:29→20:38)
[2017-08-17] MEDS: PANTOPRAZOLE SOD 20 MG DELAYED RELEASE TAB PO SCH (10:29)
[2017-08-17] MEDS: DULoxetine HCl DR 20 MG CAP PO SCH (10:29)
[2017-08-17] MEDS: METOPROLOL TARTRATE 50 MG TAB PO SCH (10:29)
[2017-08-17] MEDS: CLOPIDOGREL 75 MG TAB PO SCH (10:29)
[2017-08-17] MEDS: PRAVASTATIN SOD 40 MG TAB PO SCH (10:29)
[2017-08-17] MEDS: UMECLIDINIUM 62.5 MCG/VILANTEROL 25 MCG INHALER INH SCH (10:30)
[2017-08-17] MEDS: SODIUM CHLORIDE 0.9% FLUSH 10 ML FLUSH IV FLUSH SCH ×2 (10:30→20:38)
[2017-08-17] MEDS: FLUTICASONE PROPIONATE 44 MCG/ACT 10.6 GM INHALER INH SCH ×2 (10:30→20:38)
--- NOTE | 2017-08-17 15:23 | HHI.PR ---
Subjective Remarks "I am feeling fine" Resting comfortably in bed No event overnight Denied chest and or short of breath No fever or chills Objective Vitals Vital Signs Date Time Temp Pulse Resp B/P (MAP) Pulse Ox O2 Delivery O2 Flow Rate FiO2 08/17/17 12:03 98.0 47 18 159/72 (101) 98 08/17/17 08:42 99.3 48 18 157/70 (99) 93 08/17/17 05:00 98.6 65 19 129/89 (102) 97 08/17/17 03:47 50 08/17/17 00:35 45 08/17/17 00:03 97.6 66 19 138/80 (99) 97 08/16/17 23:46 41 08/16/17 20:50 98.1 68 17 149/89 (109) 96 08/16/17 20:00 61 08/16/17 16:00 97.4 49 22 181/76 (111) 94 I/O 08/16/17 08/16/17 08/16/17 08/17/17 08/17/17 08/17/17 07:00 15:00 23:00 07:00 15:00 23:00 Intake Total 2303 ml 610 ml 400 ml Output Total 250 ml 1000 ml 1000 ml 350 ml Balance 2053 ml -1000 ml -390 ml 50 ml Intake Oral 400 ml 400 ml IV Total 2303 ml 210 ml Output Urine Total 250 ml 1000 ml 1000 ml 350 ml # Voids 1 # Bowel Movements 1 0 0 Result Diagram: 08/17/17 0835 08/17/17 0835 Objective Remarks GENERAL: This is a well-nourished, well-developed patient, in no apparent distress. CARDIOVASCULAR: RRR, no gallops, or rubs. RESPIRATORY: Fair air entry bilaterally. No W, R, or R GASTROINTESTINAL: Abdomen soft, non-tender, nondistended. Positive bowel sounds MUSCULOSKELETAL: Extremities without clubbing, cyanosis, or edema. Pedal pulses appreciated NEUROLOGICAL: Awake and alert. Moves all extremity. Normal speech.no focal neurological deficit Procedures None A/P Problem List: (1) Acute renal insufficiency ICD Code: N28.9 - Disorder of kidney and ureter, unspecified Status: Resolved (2) Normochromic normocytic anemia ICD Code: D64.9 - Anemia, unspecified (3) Hyperkalemia ICD Code: E87.5 - Hyperkalemia Status: Acute (4) Iron deficiency anemia ICD Code: D50.9 - Iron deficiency anemia, unspecified (5) Hypokalemia ICD Code: E87.6 - Hypokalemia Assessment and Plan 72-year-old female with 1. Electrolyte imbalance with hyper and hypokalemia Monitor BMP and Coreg accordingly 2. Acute renal failure Renal indices improved Renal ultrasound shows small atrophic right kidney w small cyst. Unremarkable left kidney D/c IV fluid hydration Monitor renal function 3. UTI-Klebsiella ID consultation appreciated Continue with Ertapenem until 08/27/17 4. Normochromic normocytic anemia with thrombocytopenia Patient has transfused 2 units packed red blood cell 08/14/17 I reviewed the iron panel, low TIBC, I ordered ferritin level, unlikely related to BEATRIZ, mostly MDS which patient has possible history of I will hold on the rest of the Venofer 5. COPD/CAD/hypertension/hyperlipidemia/dementia Continue home medications DVT prophylaxis Eileen Cedillo MD Aug 17, 2017 15:23
[2017-08-17] MEDS ORDERED: METOPROLOL TARTRATE 5 MG/5 ML VIAL IV PUSH PRN (15:45)
[2017-08-17] MEDS: METOPROLOL TARTRATE 25 MG TAB PO SCH ×2 (16:50→20:38)
[2017-08-17] MEDS: ERTAPENEM INJ 1,000 MG in SODIUM CHLORIDE 0.9% INJ 100 ML IV SCH (18:11)
[2017-08-17 18:30] LABS: FREE T3 1.92 PG/ML (2.18-3.98); FREE T4 1.22 NG/DL (0.76-1.46)
[2017-08-18] VITALS: BP 147/67; PULSE 51; RESP 17; TEMP 99.4; O2SAT 98
[2017-08-18] MEDS: METOPROLOL TARTRATE 25 MG TAB PO SCH ×2 (06:29→14:00)
[2017-08-18 06:34] VITALS: BP 139/69; PULSE 58; RESP 21; TEMP 98; O2SAT 96
[2017-08-18 08:03] VITALS: BP 149/66; PULSE 51; RESP 18; TEMP 98.5; O2SAT 97
[2017-08-18] MEDS: DOCUSATE SODIUM 50 MG/SENNA 8.6 MG TAB PO SCH (09:00)
[2017-08-18] MEDS: ESCITALOPRAM OXALATE 20 MG TAB PO SCH (09:28)
[2017-08-18] MEDS: CLOPIDOGREL 75 MG TAB PO SCH (09:28)
[2017-08-18] MEDS: PRAVASTATIN SOD 40 MG TAB PO SCH (09:28)
[2017-08-18] MEDS: FERROUS SULFATE 325 MG (65 MG ELEMENTAL IRON) TAB PO SCH (09:28)
[2017-08-18] MEDS: HEPARIN SODIUM - SQ 10,000 UNITS/ML VIAL SQ SCH (09:29)
[2017-08-18] MEDS: PANTOPRAZOLE SOD 20 MG DELAYED RELEASE TAB PO SCH (09:29)
[2017-08-18] MEDS: DULoxetine HCl DR 20 MG CAP PO SCH (09:29)
[2017-08-18] MEDS: ASPIRIN 81 MG CHEW TAB CHEW SCH (09:29)
[2017-08-18] MEDS: UMECLIDINIUM 62.5 MCG/VILANTEROL 25 MCG INHALER INH SCH (09:31)
[2017-08-18] MEDS: FLUTICASONE PROPIONATE 44 MCG/ACT 10.6 GM INHALER INH SCH (09:31)
[2017-08-18] MEDS: SODIUM CHLORIDE 0.9% FLUSH 10 ML FLUSH IV FLUSH SCH (09:32)
[2017-08-18 10:41] VITALS: PULSE 49
[2017-08-18 11:37] VITALS: BP 155/69; PULSE 56; RESP 20; TEMP 98.7; O2SAT 95
[2017-08-18 12:00] VITALS: PULSE 45
--- NOTE | 2017-08-18 19:42 | HHI.DS ---
Discharge Summary Admission Date Aug 11, 2017 at 20:33 Discharge Date: Aug 18, 2017 Admitting Diagnosis ARF; HyperK (1) Acute renal insufficiency ICD Code: N28.9 - Disorder of kidney and ureter, unspecified Status: Resolved (2) Normochromic normocytic anemia ICD Code: D64.9 - Anemia, unspecified (3) Hyperkalemia ICD Code: E87.5 - Hyperkalemia Status: Acute (4) Iron deficiency anemia ICD Code: D50.9 - Iron deficiency anemia, unspecified (5) Hypokalemia ICD Code: E87.6 - Hypokalemia Procedures See below Brief History - From Admission 72-year-old female with a past medical history significant for dementia, hyperlipidemia, depression, hemiplegia status post CVA, COPD, CAD and hypertension resents to the emergency department from her assisted living facility for the evaluation of abnormal labs. The patient denies any chest pain or shortness of breath. She does report feeling dizzy and having intermittent emesis although she cannot specify length of time. Lab velasco significant for a potassium of 7.0 with acute kidney injury. CBC/BMP: 08/17/17 0835 08/17/17 0835 Significant Findings Laboratory Tests Test 08/16/17 06:57 08/17/17 08:35 Hemoglobin 10.7 GM/DL (11.6-15.3) 10.7 GM/DL (11.6-15.3) Hematocrit 31.8 % (35.0-46.0) 32.0 % (35.0-46.0) Mean Corpuscular Volume 79.4 FL (80.0-100.0) 79.9 FL (80.0-100.0) Mean Corpuscular Hemoglobin 26.8 PG (27.0-34.0) 26.7 PG (27.0-34.0) Red Cell Distribution Width 17.7 % (11.6-17.2) 17.5 % (11.6-17.2) Platelet Count 96 TH/MM3 (150-450) 100 TH/MM3 (150-450) Mean Platelet Volume 11.2 FL (7.0-11.0) 11.7 FL (7.0-11.0) Monocytes (%) (Auto) 22.2 % (0.0-8.0) 21.9 % (0.0-8.0) Monocytes # (Auto) 1.3 TH/MM3 (0-0.9) 1.4 TH/MM3 (0-0.9) Platelet Estimate LOW (NORMAL) Platelet Morphology Comment ENLARGED (NORMAL) Blood Urea Nitrogen 6 MG/DL (7-18) Calcium Level 8.2 MG/DL (8.5-10.1) Potassium Level 3.3 MEQ/L (3.5-5.1) Chloride Level 110 MEQ/L (98-107) 108 MEQ/L (98-107) B-Type Natriuretic Peptide 222 PG/ML (0-100) Albumin 2.3 GM/DL (3.4-5.0) Ferritin 734 NG/ML (8-252) Free Triiodothyronine (T3) pg/dL 1.92 PG/ML (2.18-3.98) PE at Discharge GENERAL: This is a well-nourished, well-developed patient, in no apparent distress. CARDIOVASCULAR: RRR, no gallops, or rubs. RESPIRATORY: Fair air entry bilaterally. No W, R, or R GASTROINTESTINAL: Abdomen soft, non-tender, nondistended. Positive bowel sounds MUSCULOSKELETAL: Extremities without clubbing, cyanosis, or edema. Pedal pulses appreciated NEUROLOGICAL: Awake and alert. Moves all extremity. Normal speech.no focal neurological deficit Hospital Course 72 years old female admitted with acute renal failure, electrolyte imbalance, anemia of chronic disease, COPD, patient treated with IV fluids, ID consulted for UTI with Klebsiella she was placed on ertapenem, she was transfused 2 units of PRBC, iron panel not consistent with iron deficiency anemia likely related to chronic disease versus MDS patient need to follow-up as an outpatient Patient stabilized for discharge today she is very happy about getting discharged, [id number] encounter performed with the patient on discharge day, as well as physical exam, summary of hospitalization course and postdischarge plan has been D/W the patient. D/W nurse D/W onsite case manager. Discharge medications reviewed and printed and signed, post discharge follow up visit with PCP and other specialist as well as Brief hospital course and discharge summary has been placed. Pt Condition on Discharge: Fair Discharge Disposition: Discharge to SNF Discharge Time: > 30 minutes Discharge Instructions DIET: Follow Instructions for: Heart Healthy Diet Activities you can perform: See Additionl Instruction Other Activity Instructions: pt rec Continued Medications: Acetaminophen (Acetaminophen) 325 Mg Capsule Alendronate (Fosamax) 70 Mg Tab 70 MG PO Q7D for Osteoporosis Treatment, #4 TAB 0 Refills Amlodipine (Amlodipine) 10 Mg Tab 10 MG PO DAILY for Blood Pressure Management, #30 TAB 0 Refills Ascorbic Acid ER (Vitamin C ER) 500 Mg Marcello 500 MG PO for Nutritional Supplement, TAB 0 Refills Aspirin (Aspirin) 81 Mg Chew 81 MG CHEW DAILY, TAB 0 Refills Bisacodyl Supp (Bisacodyl Supp) 10 Mg Supp 10 MG RECTAL DAILY PRN for CONSTIPATION, SUPP 0 Refills Clopidogrel (Clopidogrel) 75 Mg Tab 75 MG PO DAILY for Blood Clot Prevention, #30 TAB 0 Refills Darbepoetin Brock Inj (Aranesp (Albumin Free) Inj) 200 Mcg/0.4 Ml Inj 200 MCG SQ Q7D for Anemia, INJECTION [address] (Duloxetine DR) 20 Mg Capdr 20 MG PO DAILY, #30 CAP 0 Refills Escitalopram (Escitalopram) 20 Mg Tab 20 MG PO DAILY, #30 TAB 0 Refills Fluticasone 10.6 GM Inh (Flovent Hfa 10.6 GM Inh) 44 Mcg/Act Inh 2 PUFF INH BID for Asthma Management, #1 INHALER 0 Refills Use daily at the same time. Hydrocodone-Acetaminophen (Amboy) 7.5-325 mg Tab 1 TAB PO Q4H PRN for PAIN, #42 TAB 0 Refills Lisinopril (Lisinopril) 40 Mg Tab 40 MG PO DAILY for Blood Pressure Management, #30 TAB 0 Refills Loperamide (Loperamide) 2 Mg Cap 2 MG PO DIRECTED PRN for DIARRHEA, CAP 0 Refills One capsule after each loose stool. Not to exceed 8 capsules per day. Metoprolol Tartrate (Metoprolol Tartrate) 25 Mg Tab 25 MG PO DAILY, #30 TAB 0 Refills Metoprolol Tartrate (Metoprolol Tartrate) 50 Mg Tab 50 MG PO BID, #60 TAB 0 Refills Multiple Vitamins W/ Minerals (Centrum) 1 Chew 1 TAB CHEW DAILY for Nutritional Supplement, TAB 0 Refills Omeprazole (Omeprazole) 20 Mg Tab 20 MG PO DAILY, #30 TAB 0 Refills Pravastatin (Pravastatin) 40 Mg Tab 40 MG PO DAILY for Cholesterol Management, #30 TAB 0 Refills Umeclidinium-Vilanterol Inh (Anoro Ellipta Inh) 62.5-25 Mcg/Act Aero 1 PUFF INH DAILY for COPD, #1 INHALER 0 Refills Eileen Cedillo MD Aug 18, 2017 19:42
== END 2017-08-18 17:26 | DRG 683 ==
LOC: NEPE 17:34 → NEDA 20:33 → N06B 21:43 → N05B 08-13 18:44
PROVIDERS: ADMIT Hospitalist; ATTEND Hospitalist
PROC: 0T9B70Z Drainage of Bladder with Drainage Device, Via Natural or Artificial Opening (ICD-10-PCS; principal; 2017-08-11)
PROC: 30233N1 Transfusion of Nonautologous Red Blood Cells into Peripheral Vein, Percutaneous Approach (ICD-10-PCS; 2017-08-14)
DX: N17.9 Acute kidney failure, unspecified (principal); I69.351 Hemiplegia and hemiparesis following cerebral infarction affecting right dominant side; D69.6 Thrombocytopenia, unspecified; E87.5 Hyperkalemia; F03.90 Unspecified dementia, unspecified severity, without behavioral disturbance, psychotic disturbance, mood disturbance, and anxiety; J44.9 Chronic obstructive pulmonary disease, unspecified; N39.0 Urinary tract infection, site not specified; N28.1 Cyst of kidney, acquired; D46.9 Myelodysplastic syndrome, unspecified; I10 Essential (primary) hypertension; B96.20 Unspecified Escherichia coli [E. coli] as the cause of diseases classified elsewhere; I25.10 Atherosclerotic heart disease of native coronary artery without angina pectoris; E78.5 Hyperlipidemia, unspecified; Z82.3 Family history of stroke; Z82.49 Family history of ischemic heart disease and other diseases of the circulatory system; F17.210 Nicotine dependence, cigarettes, uncomplicated; R32 Unspecified urinary incontinence; F32.9 Major depressive disorder, single episode, unspecified; M81.0 Age-related osteoporosis without current pathological fracture; D50.9 Iron deficiency anemia, unspecified; D63.8 Anemia in other chronic diseases classified elsewhere; E87.6 Hypokalemia
CPT/HCPCS: 36430; 36569; 71045; 76775; 76937; 80048; 80053; 81001; 82550; 82728; 83540; 83550; 83880; 84132; 84439; 84443; 84481; 85025; 85610; 85730; 86850; 86900; 86901; 86920; 87077; 87086; 87186; 93005; 94640; 94664; 96374; 96375; J0610; J0696; J1335; J1644; J1756; J1815; J1940; J7030; J7050; J7613; P9016

== ENCOUNTER 2017-08-27 18:50 | Emergency (ER) | payer MEDICARE, OTHER ==
[~2017-08-27] VITALS: Ht 157.5 cm; Wt 65.0 kg
--- NOTE | 2017-08-27 19:20 | PD ---
HPI Chief Complaint: Abnormal Results Time Seen by Provider: 19:03 Travel History International Travel<30 days: No Contact w/Intl Traveler<30days: No Traveled to known affect area: No History of Present Illness HPI 72-year-old female that presents to the ED for evaluation of abnormal labs. Per report given to ED nurse patient apparently had blood work done yesterday that show low platelets of 37. Patient has no history of this in the past. Patient was recently admitted and had platelets in the 100s. Patient denies any symptoms and states that she feels fine but she does have a history of dementia and is not a good historian overall. Most of the history is obtained from the paperwork provided by [facility]. Patient came here by [employer]. Patient does have some bruising on the abdomen as well as in the arms and legs that appears to be chronic. She does take Plavix. No signs of injuries or falls. Patient herself denies any issues. I did review the records and patient does appear to have a low platelet count per the blood work that was done in an outside facility. This was done yesterday. I did review her records from when she was admitted recently and she did had a lately count in the 100s. PFSH Past Medical History Anemia: Yes Anxiety: Yes Depression: Yes Cancer: No Cardiovascular Problems: Yes (AHD) High Cholesterol: Yes COPD: Yes Cerebrovascular Accident: Yes (L SIDE DEFICIT) Coronary Artery Disease: Yes Dementia: Yes Diabetes: No Endocrine: No Gastrointestinal Disorders: Yes (CONSTIPATION) Genitourinary: Yes Hypertension: Yes Immune Disorder: No Musculoskeletal: Yes (HEMIPLEGIA) Neurologic: No Psychiatric: Yes Reproductive: No Respiratory: Yes Immunizations Current: Yes Renal Failure: Yes Thyroid Disease: No Past Surgical History AICD: No Arteriovenous Shunt: No Insulin Pump: No Joint Replacement: No Pacemaker: No Other Surgery: No Social History Alcohol Use: No Tobacco Use: No Substance Use: No Allergies-Medications (Allergen,Severity, Reaction): Coded Allergies: codeine (Verified Allergy, Unknown, 05/19/17) Reported Meds & Prescriptions Reported Meds & Active Scripts Active Macrobid (Nitrofurantoin Monoh/Nitrofur Macro) 100 Mg Cap 100 Mg PO BID 7 Days [place] (Hydrocodone-Acetaminophen) 7.5-325 mg Tab 1 Tab PO Q4H PRN Walker/Adult/Folding (Device) 1 Mis Mis Ea .ROUTE DIRECTED Reported Loperamide (Loperamide HCl) 2 Mg Cap 2 Mg PO DIRECTED PRN One capsule after each loose stool. Not to exceed 8 capsules per day. Bisacodyl Supp (Bisacodyl) 10 Mg Supp 10 Mg RECTAL DAILY PRN Acetaminophen 325 Mg Capsule Aranesp (Albumin Free) Inj (Darbepoetin Brock Inj) 200 Mcg/0.4 Ml Inj 200 Mcg SQ Q7D Anoro Ellipta Inh (Umeclidinium/Vilanterol) 62.5-25 Mcg/Act Aero 1 Puff INH DAILY Lorazepam 1 Mg Tab 1 Mg PO Q6H PRN Centrum (Multiple Vitamins W/ Minerals) 1 Chew 1 Tab CHEW DAILY Metoprolol Tartrate 50 Mg Tab 50 Mg PO BID Ferrous Sulfate 325 Mg (65 Mg Iron) Tablet 325 Mg PO BIDPC Escitalopram (Escitalopram Oxalate) 20 Mg Tab 20 Mg PO DAILY Vitamin C ER (Ascorbic Acid) 500 Mg Marcello 500 Mg PO Polyethylene Glycol 3350 Powder (Polyethylene Glycol) 17 Gram Pow 17 Gm PO DAILY Ondansetron (Ondansetron HCl) 4 Mg Tab Anoro Ellipta Inh (Umeclidinium/Vilanterol) 62.5-25 Mcg/Act Aero 1 Puff INH DAILY Pravastatin 40 Mg Tab 40 Mg PO DAILY Omeprazole 20 Mg Tab 20 Mg PO DAILY Metoprolol Tartrate 25 Mg Tab 25 Mg PO DAILY Lisinopril 40 Mg Tab 40 Mg PO DAILY Flovent Hfa 10.6 GM Inh (Fluticasone Propionate) 44 Mcg/Act Inh 2 Puff INH BID Use daily at the same time. Duloxetine DR (Duloxetine HCl) 20 Mg Capdr 20 Mg PO DAILY Clopidogrel (Clopidogrel Bisulfate) 75 Mg Tab 75 Mg PO DAILY Aspirin 81 Mg Chew 81 Mg CHEW DAILY Amlodipine (Amlodipine Besylate) 10 Mg Tab 10 Mg PO DAILY Fosamax (Alendronate Sodium) 70 Mg Tab 70 Mg PO Q7D Review of Systems ROS Limitations: Poor Historian Except as stated in HPI: all other systems reviewed are Neg Physical Exam Exam Limitations: Poor Historian Narrative GENERAL: SKIN: Warm and dry. Patient does have some bruising on the lower abdomen but appear to be chronic as well as some on the legs. HEAD: Atraumatic. Normocephalic. EYES: Pupils equal and round. No scleral icterus. No injection or drainage. ENT: No nasal bleeding or discharge. Mucous membranes pink and moist. NECK: Trachea midline. No JVD. CARDIOVASCULAR: Regular rate and rhythm. No murmurs, S3, S4. RESPIRATORY: No accessory muscle use. Clear to auscultation. Breath sounds equal bilaterally. GASTROINTESTINAL: Abdomen soft, non-tender, nondistended. Hepatic and splenic margins not palpable. MUSCULOSKELETAL: Extremities without clubbing, cyanosis, or edema. No obvious deformities. Full range of motion of the upper and lower extremities bilaterally. 2+ pulses bilaterally. NEUROLOGICAL: Awake and alert. No obvious cranial nerve deficits. Motor grossly within normal limits. Five out of 5 muscle strength in the arms and legs. Normal speech. PSYCHIATRIC: Demented mood and affect; insight and judgment minimal Data Data Last Documented VS Vital Signs Date Time Temp Pulse Resp B/P (MAP) Pulse Ox O2 Delivery O2 Flow Rate FiO2 08/27/17 19:26 49 18 97 Room Air 08/27/17 19:23 98.4 131/62 (85) Orders Orders Complete Blood Count With Diff (08/27/17 19:09) Comprehensive Metabolic Panel (08/27/17 19:09) Prothrombin Time / Inr (Pt) (08/27/17 19:09) Act Partial Throm Time (Ptt) (08/27/17 19:09) Iv Access Insert/Monitor (08/27/17 19:09) Type And Screen (08/27/17 19:09) Ed Discharge Order (08/27/17 20:44) Labs Laboratory Tests Test 08/27/17 19:30 White Blood Count 6.3 TH/MM3 Red Blood Count 4.12 MIL/MM3 Hemoglobin 11.0 GM/DL Hematocrit 33.4 % Mean Corpuscular Volume 81.1 FL Mean Corpuscular Hemoglobin 26.8 PG Mean Corpuscular Hemoglobin Concent 33.1 % Red Cell Distribution Width 17.6 % Platelet Count 50 TH/MM3 Mean Platelet Volume 15.0 FL CBC Comment AUTO DIFF Differential Total Cells Counted 100 Neutrophils % (Manual) 42 % Band Neutrophils % 3 % Lymphocytes % 37 % Monocytes % 18 % Neutrophils # (Manual) 2.8 TH/MM3 Differential Comment FINAL DIFF MANUAL Toxic Vacuolation PRESENT Platelet Estimate LOW Platelet Morphology Comment ENLARGED Prothrombin Time 12.5 SEC Prothromb Time International Ratio 1.2 RATIO Activated Partial Thromboplast Time 27.7 SEC Blood Urea Nitrogen 11 MG/DL Creatinine 0.83 MG/DL Random Glucose 114 MG/DL Total Protein 7.9 GM/DL Albumin 2.6 GM/DL Calcium Level 8.6 MG/DL Alkaline Phosphatase 107 U/L Aspartate Amino Transf (AST/SGOT) 66 U/L Alanine Aminotransferase (ALT/SGPT) 28 U/L Total Bilirubin 0.6 MG/DL Sodium Level 141 MEQ/L Potassium Level 3.4 MEQ/L Chloride Level 105 MEQ/L Carbon Dioxide Level 25.7 MEQ/L Anion Gap 10 MEQ/L Estimat Glomerular Filtration Rate 68 ML/MIN MDM Medical Decision Making Medical Screen Exam Complete: Yes Emergency Medical Condition: Yes Medical Record Reviewed: Yes Interpretation(s) CBC & BMP Diagram 08/27/17 19:30 Total Protein 7.9, Albumin 2.6 L, Calcium Level 8.6, Alkaline Phosphatase 107, Aspartate Amino Transf (AST/SGOT) 66 H, Alanine Aminotransferase (ALT/SGPT) 28, Total Bilirubin 0.6 Differential Diagnosis Low platelets versus abnormal labs versus normal exam versus bleeding Narrative Course 72-year-old female that presents to the ED for evaluation of low platelets. Patient was properly examined and was found to have signs and symptoms consistent with abnormal results. We will recheck them here. I did order type and screen as well as coags. Patient does have bruising noted on the abdomen and legs. Bruising on the abdomen appears to be likely from heparin. The review the patient's medical records and when she was admitted here she received heparin a.m. and likely the source of this bruising. She does not appear to be tender on exam. Bruising does appear to be old and not new. Labs and imaging here were essentially unremarkable other than low platelets at 50. H&H actually improved from previous admission and patient actually was anemic on her last admission. She has no signs of bleeding. Case discussed with my attending Dr. Link who recommends to speak with him on. Spoke with Dr. Vázquez who stated that is up to us whether we want to keep her for further eval or not if she has never had a workup. I did review her chart in more detail and she actually had a workup for this in 2017 having had a bone marrow biopsy and multiple test. It was found that she has been thrombocytopenic chronically and her platelets have been up and down multiple visits here in the ED. Last time she had platelets in the 37 was actually in May of this year. At this time recommendation is for outpatient workup by hematology oncology and further treatment if needed. My attending Dr. Link was made aware of this and agrees with plan. See ED if worsening symptoms. Follow-up with PCP. Diagnosis Primary Impression: Thrombocytopenia Patient Instructions: General Instructions Additional Instructions: platelets here of 50. Previous work up for this in 2017. Needs f/u with Heme/ Onc outpatient. See ED if worst. F/u with PCP. Med/Other Pt SpecificInfo: No Change to Meds Disposition: 01 DISCHARGE HOME Condition: Stable Agapito Hernandez Aug 27, 2017 19:20
[2017-08-27 19:23] VITALS: BP 131/62; PULSE 49; RESP 18; TEMP 98.4; O2SAT 97
[2017-08-27 19:40] LABS: HEMATOCRIT 33.4 % (35.0-46.0); MEAN CELL VOLUME 81.1 FL (80.0-100.0); MEAN CORPUSCULAR HEMOGLOBIN 26.8 PG (27.0-34.0); MEAN CORPUSCULAR HGB CONC 33.1 % (32.0-36.0); PLATELET COUNT 50 TH/MM3 (150-450); RED BLOOD COUNT 4.12 MIL/MM3 (4.00-5.30); RED CELL DISTRIBUTION WIDTH 17.6 % (11.6-17.2); WHITE BLOOD COUNT 6.3 TH/MM3 (4.0-11.0)
[2017-08-27 19:51] LABS: INTERNATIONAL NORMALIZED RATIO 1.2 RATIO; PROTHROMBIN TIME - PATIENT 12.5 SEC (9.8-11.6)
[2017-08-27 20:11] LABS: ALT (GPT) 28 U/L (10-53)
[2017-08-27 20:13] LABS: ALKALINE PHOSPHATASE 107 U/L (45-117); TOTAL BILIRUBIN ADULT 0.6 MG/DL (0.2-1.0); TOTAL PROTEIN 7.9 GM/DL (6.4-8.2)
[2017-08-27 20:16] LABS: ALBUMIN 2.6 GM/DL (3.4-5.0); AST (GOT) 66 U/L (15-37); BICARBONATE 25.7 MEQ/L (21.0-32.0); BLOOD UREA NITROGEN 11 MG/DL (7-18); CALCIUM 8.6 MG/DL (8.5-10.1); CHLORIDE 105 MEQ/L (98-107); CREATININE 0.83 MG/DL (0.50-1.00); GLOMERULAR FILTRATION RATE 68 ML/MIN (>89); GLUCOSE,RANDOM 114 MG/DL (74-106); SODIUM (NA) 141 MEQ/L (136-145)
[2017-08-27 20:33] LABS: BANDS 3 % (0-6); LYMPHOCYTES 37 % (9-44); MONOCYTES 18 % (0-8); NEUTROPHIL # MANUAL DIFF 2.8 TH/MM3 (1.8-7.7); POLYS (SEG NEUTROPHILS) 42 % (16-70)
[2017-08-27 20:34] LABS: TOXIC VACUOLATION PRESENT (NONE SEEN)
== END 2017-08-27 22:08 | disposition home or self-care (01) ==
LOC: NEPE 18:50
DX: D69.6 Thrombocytopenia, unspecified (principal); I25.10 Atherosclerotic heart disease of native coronary artery without angina pectoris; I10 Essential (primary) hypertension; Z79.02 Long term (current) use of antithrombotics/antiplatelets
CPT/HCPCS: 80053; 85007; 85027; 85610; 85730; 86850; 86900; 86901; 99283